=== PATIENT | female | born 1980 | race Two or more races ===

== ENCOUNTER → 2020-01-21 10:08 | Outpatient (BNVA) | payer MEDICAID, SELFPAY | PROVIDERS: PCP Student in an Organized Health Care Education/Training Program; Referring Provider Student in an Organized Health Care Education/Training Program; Visit Provider Nurse Practitioner Family | DX: M54.16 Radiculopathy, lumbar region (principal); M53.3 Sacrococcygeal disorders, not elsewhere classified | CPT/HCPCS: 99202 ==

== ENCOUNTER 2020-01-27 09:20 | Outpatient (REF) | payer MEDICAID, SELFPAY ==
--- NOTE | 2020-01-27 09:23 | MR_ITS ---
EXAMINATION: MR LUMBAR SPINE WITHOUT CONTRAST CLINICAL INFORMATION: Lumbar radiculopathy on left side. COMPARISON: X-ray dated 12/03/2012 TECHNIQUE: MRI of the lumbar spine was obtained using routine sequences without contrast. FINDINGS: VERTEBRAL BODIES AND PARASPINAL STRUCTURES: Mild chronic fatty marrow degenerative endplate changes noted at various levels. There are no compression fractures or subluxations. The remainder of the marrow signal is fairly homogeneous. The paraspinal soft tissues are normal. There are mild degenerative changes of the sacroiliac joints. There is fluid within the endometrial canal of the uterus, partially visualized which may be physiologic in nature. CONUS MEDULLARIS AND CAUDA EQUINA: Normal, terminating at the level of L1. No lower cord signal abnormality is seen. The cauda equina nerve roots are normal. SPINAL LEVELS: L1-L2: Mild diffuse disc bulge and shallow left paracentral disc protrusion slightly impressing upon the ventral thecal sac. No central canal stenosis or foraminal narrowing. L2-L3: Mild disc bulge present without central canal stenosis or foraminal narrowing. L3-L4: Generalized disc bulge and shallow, broad-based central disc protrusion with an underlying annular fissure mildly impressing upon the ventral thecal sac and right L4 nerve root. Mild facet arthropathy. No central canal stenosis. Bulging disc mildly encroaches upon the right neural foramen. L4-L5: Disc degeneration and broad-based central disc extrusion moderately distorting the thecal sac and resulting in mass effect upon both L5 nerve roots, left greater than right side. Hypertrophic facet arthropathy and mild to moderate central canal stenosis. Patent foramina. L5-S1: Broad-based central disc protrusion distorts the ventral thecal sac and impinges upon both S1 nerve roots. There is a more severe degree of compression and posterior displacement of the right S1 nerve root from the large disc protrusion in the subarticular zone. Mild facet arthropathy. Patent foramina. MR/MR lumbar spine wo con IMPRESSION: Broad-based central disc extrusion at L4-L5 moderately distorting the thecal sac and compressing both L5 nerve roots. Broad-based central disc protrusion at L5-S1 impinging upon the right greater than left S1 nerve roots and distorting the ventral thecal sac. Shallow broad-based and underlying disc bulge at L3-L4 with mild impression upon the right L4 nerve root.
== END 2020-01-27 09:21 | disposition home or self-care (01) ==
LOC: HO.MRI 09:20
PROVIDERS: Visit Provider Anesthesiology
DX: M54.16 Radiculopathy, lumbar region (principal)
CPT/HCPCS: 72148

== ENCOUNTER → 2020-02-03 08:55 | Outpatient (BNVA) | payer MEDICAID, SELFPAY | PROVIDERS: Visit Provider Nurse Practitioner Family | DX: M48.061 Spinal stenosis, lumbar region without neurogenic claudication (principal); E66.01 Morbid (severe) obesity due to excess calories | CPT/HCPCS: 99212 ==

== ENCOUNTER → 2020-02-25 16:06 | Outpatient (BNVA) | payer MEDICAID, SELFPAY | PROVIDERS: PCP Student in an Organized Health Care Education/Training Program; Visit Provider Nurse Practitioner Family ==

== ENCOUNTER 2020-03-09 05:22 | Outpatient (REF) | payer MEDICAID, SELFPAY ==
--- NOTE | 2020-03-09 07:28 | FL_ITS ---
EXAMINATION: XR FLUOROSCOPY WITH IMAGES CLINICAL INFORMATION: Radiculopathy. COMPARISON: None. TECHNIQUE: Fluoroscopy performed by Arleth Roldan NP. Fluoroscopy time: 1.1 minutes DAP: 8.93 Gycm2 Images: 2 FINDINGS: There are 6 lumbar vertebrae noted. There are needles positioned adjacent to inferior L3 and L4 pedicles with contrast opacifying adjacent soft tissues and epidural contrast for an epidural steroid injection. FL/FL guidance in treatment room IMPRESSION: Fluoroscopy was provided to referring physician for transforaminal epidural steroid injection at L3-L4 and L4-L5 disc levels
== END 2020-03-09 05:23 | disposition home or self-care (01) ==
LOC: HO.RADIR 05:22
PROVIDERS: Visit Provider Anesthesiology
DX: M54.16 Radiculopathy, lumbar region (principal); M48.061 Spinal stenosis, lumbar region without neurogenic claudication; M53.3 Sacrococcygeal disorders, not elsewhere classified; E66.01 Morbid (severe) obesity due to excess calories
CPT/HCPCS: 64483; 64484; J3300; Q9967

== ENCOUNTER → 2020-04-06 10:37 | Outpatient (BNVA) | payer MEDICAID, SELFPAY | PROVIDERS: PCP Student in an Organized Health Care Education/Training Program; Visit Provider Surgery Vascular Surgery | DX: I73.00 Raynaud's syndrome without gangrene (principal); G56.02 Carpal tunnel syndrome, left upper limb | CPT/HCPCS: 99202 ==

== ENCOUNTER → 2020-04-12 09:22 | Outpatient (BNVA) | payer MEDICAID, SELFPAY | PROVIDERS: Visit Provider Anesthesiology | DX: E66.01 Morbid (severe) obesity due to excess calories (principal); M48.061 Spinal stenosis, lumbar region without neurogenic claudication; M53.3 Sacrococcygeal disorders, not elsewhere classified; M54.16 Radiculopathy, lumbar region | CPT/HCPCS: 99212 ==

== ENCOUNTER 2020-06-01 07:16 | Outpatient (REF) | payer MEDICAID, SELFPAY ==
--- NOTE | ~2020-06-01 | FL_ITS ---
EXAMINATION: XR FLUOROSCOPY WITH IMAGES CLINICAL INFORMATION: Spinal stenosis. COMPARISON: None. TECHNIQUE: Fluoroscopy performed by Arleth Roldan. Fluoroscopy time: 0.4 minutes DAP: 3.66 Gycm2 Images: 2 FINDINGS: There is left transforaminal L3-L4 epidural injection with contrast opacifying posterior epidural space and the neural foramina. Mild spondylosis seen in lumbar spine. FL/FL guidance in treatment room IMPRESSION: Fluoroscopy provided to Arleth Roldan for L4 epidural injection.
== END 2020-06-01 07:17 | disposition home or self-care (01) ==
LOC: HO.RADIR 07:16
PROVIDERS: Visit Provider Anesthesiology
DX: M48.061 Spinal stenosis, lumbar region without neurogenic claudication (principal); M53.3 Sacrococcygeal disorders, not elsewhere classified; M54.16 Radiculopathy, lumbar region; E66.01 Morbid (severe) obesity due to excess calories
CPT/HCPCS: 64483; 64484; J1100; J3300; Q9967

== ENCOUNTER → 2020-07-07 11:21 | Outpatient (BNVA) | payer MEDICAID, SELFPAY | PROVIDERS: Visit Provider Nurse Practitioner Family | DX: M54.16 Radiculopathy, lumbar region (principal); E66.01 Morbid (severe) obesity due to excess calories; M48.061 Spinal stenosis, lumbar region without neurogenic claudication; M53.3 Sacrococcygeal disorders, not elsewhere classified ==

== ENCOUNTER 2020-07-07 18:45 | Outpatient (REF) | payer MEDICAID, SELFPAY ==
--- NOTE | ~2020-07-07 | MR_ITS ---
MR LUMBAR SPINE WITHOUT CONTRAST CLINICAL INFORMATION: Severe low back pain and bilateral leg pain and incontinence. COMPARISON: Lumbar spine MRI 01/27/2020. TECHNIQUE: MRI of the lumbar spine was obtained using routine sequences without contrast. FINDINGS: There are 5 nonrib-bearing lumbar-type vertebral bodies. Stable grade 1 anterolisthesis of L5 on S1. Lumbar alignment is otherwise normal. The vertebral body heights are maintained. Disc desiccation at all lumbar levels. There is no bone marrow edema. There are no acute fractures. Conus terminates at the L1 level. Nonspecific enlarged retroperitoneal lymph nodes are stable. L1-L2: Small annular disc bulge eccentric to the left side mildly narrows the central canal and is unchanged. No foraminal stenosis. L2-L3: New small superiorly migrating left paracentral disc extrusion mildly narrows the central canal. Mild bilateral facet arthropathy. L3-L4: Diffuse annular disc bulge and mild bilateral facet arthropathy. Mild narrowing of the central canal. No foraminal stenosis. Findings unchanged. L4-L5: An inferiorly migrating central disc extrusion results in worsening moderate to severe central canal stenosis and compression of the traversing L5 nerve roots bilaterally. Bilateral facet arthropathy. Mild foraminal encroachment bilaterally. L5-S1: A superiorly migrating broad-based right paracentral disc protrusion continues to result in moderate to severe central canal stenosis and compresses the traversing right greater than left S1 nerve roots within the subarticular zones. Mild bilateral foraminal encroachment. MR/MR lumbar spine wo con IMPRESSION: - At L5-S1, a superiorly migrating broad-based right paracentral disc protrusion continues to result in moderate to severe central canal stenosis and compresses the traversing right greater than left S1 nerve roots within the subarticular zones. - At L4-L5, and inferiorly migrating central disc extrusion results in worsening moderate to severe central canal stenosis and compression of the traversing L5 nerve roots bilaterally. - At L2-L3, a new small superiorly migrating left paracentral disc extrusion mildly narrows the central canal. - Nonspecific enlarged retroperitoneal lymph nodes are stable.
== END 2020-07-07 18:46 | disposition home or self-care (01) ==
LOC: HO.MRI 18:45
PROVIDERS: Visit Provider Physician Assistant
DX: M54.5 Low back pain (principal); M79.18 Myalgia, other site; M79.604 Pain in right leg; R32 Unspecified urinary incontinence; M54.16 Radiculopathy, lumbar region; M48.061 Spinal stenosis, lumbar region without neurogenic claudication; Z79.899 Other long term (current) drug therapy
CPT/HCPCS: 72148

== ENCOUNTER → 2020-12-07 09:16 | Outpatient (BNVA) | payer MEDICAID, SELFPAY | PROVIDERS: PCP Student in an Organized Health Care Education/Training Program; Visit Provider Nurse Practitioner Family | DX: M54.16 Radiculopathy, lumbar region (principal); M53.3 Sacrococcygeal disorders, not elsewhere classified | CPT/HCPCS: 99212 ==

== ENCOUNTER 2020-12-21 15:47 | Outpatient (RCR) | payer MEDICAID, SELFPAY | END 2021-04-29 14:13 | disposition home or self-care (01) | LOC: HO.PT 15:47 | PROVIDERS: PCP Student in an Organized Health Care Education/Training Program; Visit Provider Nurse Practitioner Family | DX: M53.3 Sacrococcygeal disorders, not elsewhere classified (principal) ==

== ENCOUNTER → 2021-01-04 11:25 | Outpatient (BNVA) | payer MEDICAID, SELFPAY | PROVIDERS: Visit Provider Nurse Practitioner Family | DX: M54.16 Radiculopathy, lumbar region (principal); M53.3 Sacrococcygeal disorders, not elsewhere classified | CPT/HCPCS: 99212 ==

== ENCOUNTER → 2021-01-19 11:13 | Outpatient (BNVA) | payer MEDICAID, SELFPAY | PROVIDERS: Visit Provider Nurse Practitioner Family ==

== ENCOUNTER → 2021-02-08 10:41 | Outpatient (BNVA) | payer MEDICAID, SELFPAY | PROVIDERS: PCP Student in an Organized Health Care Education/Training Program; Visit Provider Nurse Practitioner Family | DX: M54.16 Radiculopathy, lumbar region (principal); M53.3 Sacrococcygeal disorders, not elsewhere classified | CPT/HCPCS: 99212 ==

== ENCOUNTER → 2021-03-10 09:46 | Day surgery (SDC) | payer MEDICAID, SELFPAY ==
--- NOTE | 2021-03-09 10:25 | HO.ANESPROP2 ---
Documented by User: Dana Simms NP 03/09/21 10:29 HPI - Anesthesia Eval Consult details Narrative: 41yo F for Left?Diagnostic Sacroiliac Joint Innervation Injections PMFSH Active Problems Active Problems: All Active Problems (Updated 04/12/20 @ 10:12 by Gabe You MD) Carpal tunnel syndrome on left (Acute) Raynaud's disease without gangrene (Acute) Morbid obesity (Acute) Spinal stenosis of lumbar region (Acute) Sacroiliac joint pain (Acute) Lumbar radiculopathy (Acute) Past Medical History Medical History (Updated 03/10/21 @ 10:01 by Kimber Gudino RN) delivery delivered HTN (hypertension) Raynaud's disease without gangrene Surgical History Surgical History Carpal tunnel syndrome (~2018) Lipoma of arm Social History Social History Patient Tobacco Use Status: Current everyday Tobacco user Tobacco use type: Cigarette Cigarettes Per Day: 8 Use of substances other than those prescribed or required for medical reasons: Yes Substance Use Frequency: Daily Are you DNR?: No Advance Directives: No Advance Directives Information Provided: Yes Meds Allergies Allergy/AdvReac Type Severity Reaction Status Date / Time oxycodone [From PERCOCET] Allergy Unknown HIVES Verified 03/10/21 10:01 Home Medications Medication Instructions Recorded Confirmed Last Taken Type lisinopril 40 mg tablet 40 mg PO DAILY 01/21/20 01/04/21 Unknown History amlodipine 5 mg tablet 5 mg PO DAILY 04/06/20 01/04/21 Unknown History hydrochlorothiazide 25 mg tablet 25 mg PO DAILY 12/07/20 01/04/21 Unknown History Exam Exam Date and Time: March 09, 2021 1025 Assessment and Plan Assessment Anesthesia Assessment: Chart Reviewed Documented by User: Ross Navarrete 03/10/21 12:24 HPI - Anesthesia Eval Consult details Narrative: 41yo F for Left?Diagnostic Sacroiliac Joint Innervation Injections patient severly hypertensive with headache. Patient given IV labetelol and oral amlodipine and HCTZ ( home meds which she forgot to take ) . headache improved risks and benefits discussed . risks outweigh the benefits . case will be cancelled after discussion with surgeon . 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 counselled the patient that if symptoms reappear , immediately go to the ED patient understands and agrees with the plan . [facility] Past Medical History Medical History (Updated 03/10/21 @ 10:01 by Kimber Gudino, THOMAS) delivery delivered HTN (hypertension) Raynaud's disease without gangrene Functional capacity: independent ambulation Family History Family history of problems with anesthesia: No Surgical History Surgical History Carpal tunnel syndrome (~2018) Lipoma of arm History of Problems with Anesthesia: No Social History Social History Patient Tobacco Use Status: Current everyday Tobacco user Tobacco use type: Cigarette Cigarettes Per Day: 8 Use of substances other than those prescribed or required for medical reasons: Yes Substance Use Frequency: Daily Are you DNR?: No Advance Directives: No Advance Directives Information Provided: Yes Meds Allergies Allergy/AdvReac Type Severity Reaction Status Date / Time oxycodone [From PERCOCET] Allergy Unknown HIVES Verified 03/10/21 10:01 Home Medications Medication Instructions Recorded Confirmed Last Taken Type lisinopril 40 mg tablet 40 mg PO DAILY 01/21/20 01/04/21 Unknown History amlodipine 5 mg tablet 5 mg PO DAILY 04/06/20 01/04/21 Unknown History hydrochlorothiazide 25 mg tablet 25 mg PO DAILY 12/07/20 01/04/21 Unknown History Exam Airway Mallampati Class: I TM Dist: >3cm Loose/Missing/Broken Teeth: Yes (Chipped ) Assessment and Plan Final Anesthetic Review Family History of Problems with Anesthesia: No History of Problems with Anesthesia: No NPO: Yes ASA Class: III Final Preanesthetic Review: Anes Risks/Benef Reviewed Patient Risk: High Anesthetic Plan Anesthetic Plan: MAC: Disposition: Standard PACU
[2021-03-10 10:02] VITALS: BMI 39.4
[2021-03-10 10:13] LABS: UPreg QC Valid YES
[2021-03-10 10:15] LABS: Urine Pregnancy NEGATIVE (NEGATIVE)
[2021-03-10 10:17] VITALS: BP 181/102; PULSE 76; RESP 16; TEMP 36.7; O2SAT 99
[2021-03-10] MEDS: Lactated Ringers 1,000 ML 100 ML IVCONT (10:27)
[2021-03-10] MEDS: hydroCHLOROthiazide 25 MG TABLET PO (11:09)
[2021-03-10] MEDS: amLODIPine Besylate 5 MG TABLET PO (11:09)
--- NOTE | 2021-03-10 11:35 | MHC.SHP ---
Pre-Procedural Eval Section A Date of Service: 03/10/21 Changes since office visit: Yes Patient answered all questions The History & Physical has been completed within 30 days and I have reviewed it.: No Section B Chief Complaint: Sacroiliac Joint Pain Details of Present Illness: As above Relevant Social History: None Present Medications: see Short Stay Collaborative assessment Medical History: No relevant PMH History of Previous Operations: No relevant previous surgery Allergies: Allergies Allergy/AdvReac Type Severity Reaction Status Date / Time oxycodone [From PERCOCET] Allergy Unknown HIVES Verified 03/10/21 10:01 Review of Systems Sugical H&P ROS: Negative: Constitution, Cardiovascular, Respiratory, Neurological, Psychiatric, Hem-Onc, Allergic/Immunologic, Gastrointestinal, Genitourinary, Musculoskeletal, Integumentary, Endocrine and Eyes/Ears/Nose/Throat Exam Surgical H&P Exam: Normal: HEENT, Normal: Heart, Normal: Lungs, Normal: Extremities, Normal: Abdomen, Normal: Skin and Normal: Neurological Plan Diagnosis/Plan: Unchanged I have reviewed the history and physical and performed a pertinent physical examination on my patient. No changes have occurred unless specified.
== END ==
PROVIDERS: Nurse Practitioner; PCP Student in an Organized Health Care Education/Training Program; Visit Provider Anesthesiology
DX: M53.3 Sacrococcygeal disorders, not elsewhere classified (principal); M54.16 Radiculopathy, lumbar region; Z53.8 Procedure and treatment not carried out for other reasons; I10 Essential (primary) hypertension; Z79.899 Other long term (current) drug therapy; Z88.0 Allergy status to penicillin
CPT/HCPCS: 81025; Q9967

== ENCOUNTER 2021-03-31 09:45 | Day surgery (SDC) | payer MEDICAID, SELFPAY ==
[2021-03-25 14:02] VITALS: BMI 39.4
--- NOTE | 2021-03-30 09:03 | HO.ANESPROP2 ---
Documented by User: Dana Simms NP 03/30/21 09:09 HPI - Anesthesia Eval Consult details Narrative: 41yo F for Left?Diagnostic Sacroiliac Joint Innervation Injections Cx'd DOS 03/09/21 d/t uncontrolled htn, headache (given IV labetelol and oral amlodipine and HCTZ. Seen by PCP (increased cardiac meds) Cleared by cardiology [facility] Active Problems Active Problems: All Active Problems (Updated 03/25/21 @ 14:22 by Edith Gtz, THOMAS) Lumbar radiculopathy (Acute) Sacroiliac joint pain (Acute) Spinal stenosis of lumbar region (Acute) Morbid obesity (Acute) Carpal tunnel syndrome on left (Acute) Raynaud's disease without gangrene (Acute) Past Medical History Medical History (Updated 03/25/21 @ 14:22 by Edith Gtz RN) Anxiety delivery delivered History of COVID-19 HTN (hypertension) Hx of myocardial infarction Raynaud's disease without gangrene Snores Family History Family history of problems with anesthesia: No Surgical History Surgical History (Updated 03/31/21 @ 10:04 by Ro Rose RN) Carpal tunnel syndrome (~2018) History of back surgery Hx of section Lipoma of arm History of Problems with Anesthesia: No Social History Social History (Updated 03/31/21 @ 11:13 by Su Diamond MD) Are you a primary critical care nurse to a significant other at home: No Do you presently have visiting nurse or other home services: No Patient Tobacco Use Status: Current everyday Tobacco user Tobacco use type: Cigarette Cigarettes Per Day: 5 Years Smoked: 27 Smoked in Last 30 Days: Yes Use of substances other than those prescribed or required for medical reasons: Yes Substance Use Type: Marijuana Substance Use Frequency: Daily Last Used Substance: Hours (ago) Have you been hit, kicked, punched, or otherwise hurt by someone within the past year? If so, by whom?: No Are you DNR?: No Advance Directives: No Advance Directives Information Provided: Yes Advance Directives on File: No Recently lost weight without trying: No Patient : No FDLMP: 03/10/2021 : No Poor oral hygiene: No Meds Allergies Allergy/AdvReac Type Severity Reaction Status Date / Time oxycodone [From PERCOCET] Allergy Unknown HIVES Verified 03/25/21 13:56 Home Medications Medication Instructions Recorded Confirmed Last Taken Type lisinopril 40 mg tablet 40 mg PO DAILY 01/21/20 03/25/21 Unknown History amlodipine 5 mg tablet 10 mg PO DAILY 04/06/20 03/25/21 03/31/21 History hydrochlorothiazide 25 mg tablet 25 mg PO DAILY 12/07/20 03/25/21 Unknown History carvedilol 6.25 mg tablet 6.25 mg PO BID 03/25/21 03/25/21 03/31/21 History diphenhydramine HCl 25 mg capsule 25 mg PO BID PRN 03/25/21 03/25/21 Unknown History (Benadryl) gabapentin 400 mg tablet 400 mg PO TID 03/25/21 03/25/21 03/31/21 History oxycodone 5 mg tablet 5 mg PO Q12H PRN 03/25/21 03/25/21 Unknown History Exam Exam Date and Time: March 30, 2021 0903 Height,Weight and Vital Signs: Height 5 ft 4 in Weight 104.326 kg Assessment and Plan Assessment Anesthesia Assessment: Chart Reviewed Final Anesthetic Review Family History of Problems with Anesthesia: No History of Problems with Anesthesia: No Documented by User: Su Diamond MD 03/31/21 13:15 [facility] Active Problems Active Problems: All Active Problems (Updated 03/25/21 @ 14:22 by Edith Gtz RN) Lumbar radiculopathy (Acute) Sacroiliac joint pain (Acute) Spinal stenosis of lumbar region (Acute) Morbid obesity (Acute) Carpal tunnel syndrome on left (Acute) Raynaud's disease without gangrene (Acute) Covid Positive 03/13/21. Got IV monoclonal antibodies on 03/15/21 Past Medical History Medical History (Updated 03/25/21 @ 14:22 by Edith Gtz, THOMAS) Anxiety delivery delivered History of COVID-19 HTN (hypertension) Hx of myocardial infarction Raynaud's disease without gangrene Snores Surgical History Surgical History (Updated 03/31/21 @ 10:04 by Ro Rose RN) Carpal tunnel syndrome (~2018) History of back surgery Hx of section Lipoma of arm Social History Social History (Updated 03/31/21 @ 11:13 by Su Diamond MD) Are you a primary critical care nurse to a significant other at home: No Do you presently have visiting nurse or other home services: No Patient Tobacco Use Status: Current everyday Tobacco user Tobacco use type: Cigarette Cigarettes Per Day: 5 Years Smoked: 27 Smoked in Last 30 Days: Yes Use of substances other than those prescribed or required for medical reasons: Yes Substance Use Type: Marijuana Substance Use Frequency: Daily Last Used Substance: Hours (ago) Have you been hit, kicked, punched, or otherwise hurt by someone within the past year? If so, by whom?: No Are you DNR?: No Advance Directives: No Advance Directives Information Provided: Yes Advance Directives on File: No Recently lost weight without trying: No Patient : No FDLMP: 03/10/2021 : No Poor oral hygiene: No Meds Allergies Allergy/AdvReac Type Severity Reaction Status Date / Time oxycodone [From PERCOCET] Allergy Unknown HIVES Verified 03/25/21 13:56 Home Medications Medication Instructions Recorded Confirmed Last Taken Type lisinopril 40 mg tablet 40 mg PO DAILY 01/21/20 03/25/21 Unknown History amlodipine 5 mg tablet 10 mg PO DAILY 04/06/20 03/25/21 03/31/21 History hydrochlorothiazide 25 mg tablet 25 mg PO DAILY 12/07/20 03/25/21 Unknown History carvedilol 6.25 mg tablet 6.25 mg PO BID 03/25/21 03/25/21 03/31/21 History diphenhydramine HCl 25 mg capsule 25 mg PO BID PRN 03/25/21 03/25/21 Unknown History (Benadryl) gabapentin 400 mg tablet 400 mg PO TID 03/25/21 03/25/21 03/31/21 History oxycodone 5 mg tablet 5 mg PO Q12H PRN 03/25/21 03/25/21 Unknown History Exam Height,Weight and Vital Signs: Height 5 ft 4 in Weight 104.326 kg Vital Signs Temp Pulse Resp BP Pulse Ox 03/31/21 10:19 98.1 F 71 16 125/78 99 Pertinent Lab Results Pertinent Lab Results: Lab Results 03/31/21 Range/Units 10:04 Urine Test NEGATIVE (NEGATIVE) Airway Mallampati Class: II TM Dist: >3cm Neck ROM: Full Heart: RRR Lungs: CTAB Assessment and Plan Assessment Anesthesia Assessment: Anesthesia Plan Discussed Final Anesthetic Review NPO: Yes ASA Class: III Final Preanesthetic Review: No Changes in Pt Med Stat, Meds/Allgs Chart Reviewed, Consent Obtained/Reviewed and Anes Risks/Benef Reviewed Patient Risk: Intermediate Procedure Risk: Low Assessment/Block/Sedation in SS: Assess/Block/Sedation-SS Anesthetic Plan Anesthetic Plan: GA and MAC: Disposition: Standard PACU
--- NOTE | ~2021-03-31 | FL_ITS ---
EXAMINATION: XR FLUOROSCOPY WITH IMAGES CLINICAL INFORMATION: Lumbosacral pain. COMPARISON: MR lumbar spine 07/07/2020 TECHNIQUE: Fluoroscopy performed by Dr. Gabe You. Fluoroscopy time: 0.6 minutes DAP: 6.06 Gycm2 Images: 2 FINDINGS: There are spinal needles overlying the left lumbosacral junction and upper left sacral wing near the foramen. There is contrast seen in the soft tissues and likely nerve sheath. No vascular communication appreciated. FL/FL guidance in OR IMPRESSION: Fluoroscopy for pain management procedures.
[2021-03-31 10:19] VITALS: BP 125/78; PULSE 71; RESP 16; TEMP 36.7; O2SAT 99
[2021-03-31 10:24] LABS: Urine Pregnancy NEGATIVE (NEGATIVE)
[2021-03-31 10:25] LABS: UPreg QC Valid YES
[2021-03-31] MEDS: Lactated Ringers 1,000 ML 100 ML IVCONT (10:37)
--- NOTE | 2021-03-31 11:56 | P.HPSUR_ITS ---
Pre-Procedural Eval Section A Date of Service: 03/31/21 The patient is an INPATIENT: No Changes since office visit: Yes Patient answered all questions The History & Physical has been completed within 30 days and I have reviewed it.: No Section B Chief Complaint: sacroccygeal disorders Details of Present Illness: as above Relevant Family History (Specify if Yes): No Relevant Social History: None Present Medications: None Medical History: No relevant PMH History of Previous Operations: No relevant previous surgery Allergies: Allergies Allergy/AdvReac Type Severity Reaction Status Date / Time oxycodone [From PERCOCET] Allergy Unknown HIVES Verified 03/25/21 13:56 Review of Systems Sugical H&P ROS: Negative: Cardiovascular, Respiratory, Neurological, Psychiat josé, Hem-Onc, Allergic/Immunologic, Gastrointestinal, Genitourinary, Musculoskeletal, Integumentary, Endocrine and Eyes/Ears/Nose/Throat and Yes, Specify: Constitution (obese) Exam Surgical H&P Exam: Normal: HEENT, Normal: Heart, Normal: Lungs, Normal: Extremities, Normal: Abdomen, Normal: Skin and Normal: Neurological Plan Diagnosis/Plan: Unchanged I have reviewed the history and physical and performed a pertinent physical examination on my patient. No changes have occurred unless specified.
--- NOTE | 2021-03-31 12:30 | PM.OP ---
Brief Operative Note Date of Service: 03/31/21 Pre-op diagnosis: sacroiliitis Post-op diagnosis: same Procedure: left sacroiliac joint innervation Diagnostic injection Implants: none Surgeon: Gabe You MD Anesthesia: MAC Was an Cyber Systems Operations Specialist used for this Procedure?: No Estimated blood loss (mL): 0 Disposition: PACU
--- NOTE | 2021-03-31 12:32 | P.OP_ITS ---
Operative Note Operative Note Date of Service: 03/31/21 Narrative: The patient came to the OR to have a diagnostic left SI joint innervation injection. After obtaining informed consent the patient was brought to the OR where he was positioned prone on the operating table. ASA m-rs were applied and the patient was sedated. Time out was performed delineating correct site and side of the procedure. the lower back of the patient was prepped and draped with duraprep.? C-arm was brought over the operating field and square picture of the pelvis was demonstrated on the screen . The targets for the on injection were delineated as the connection of the base of the left superior articular process of S1 with Sacral ala as well as the lowest point of the sacroiliac joint on the sacral bone side and also all the points in between in palisade fashion. The projection of the points of the interests to the skin were anesthetized with mixture of lidocaine 2% with marcain 0.5% 1:1. after that three 22g 3.5 inch needles were driven to the points of the interests in tunnel vision fashion unti l the tips of the needle would gently contact the bone. On the first target injection of the contrast was performed delineating no intravascular and no intrathecal spread of the contrast. after that the injection of bupivacaine 0.5% was performed into each needle location sequentially no more than 1 ml of the local anesthetic into one needle location. After that the needles were removed and sterile bandade was applied. After the completion of the procedure the patient was awaken and taken to PACU for recovery from anesthesia.
[2021-03-31 12:38] VITALS: BP 107/64; PULSE 88; RESP 20; TEMP 37; O2SAT 97
[2021-03-31 12:53] VITALS: BP 102/58; PULSE 68; RESP 16; O2SAT 98
== END 2021-03-31 13:48 | disposition home or self-care (01) ==
PROVIDERS: Nurse Practitioner; PCP Student in an Organized Health Care Education/Training Program; Visit Provider Anesthesiology
PROC: (CPT 64451; principal; 2021-03-31 11:30)
DX: M53.3 Sacrococcygeal disorders, not elsewhere classified (principal); M54.16 Radiculopathy, lumbar region; M54.50 Low back pain, unspecified; R06.83 Snoring; I10 Essential (primary) hypertension; I73.00 Raynaud's syndrome without gangrene; Z79.899 Other long term (current) drug therapy; Z88.8 Allergy status to other drugs, medicaments and biological substances; F17.210 Nicotine dependence, cigarettes, uncomplicated; Z86.16 Personal history of COVID-19
CPT/HCPCS: 64451; 81025; J2250; J2370; J3010; J3300; Q9967

== ENCOUNTER → 2021-04-12 09:45 | Outpatient (BNVA) | payer MEDICAID, SELFPAY | PROVIDERS: PCP Student in an Organized Health Care Education/Training Program; Visit Provider Nurse Practitioner Family | DX: M54.16 Radiculopathy, lumbar region (principal); M53.3 Sacrococcygeal disorders, not elsewhere classified; Z79.891 Long term (current) use of opiate analgesic | CPT/HCPCS: 99212 ==

== ENCOUNTER → 2021-04-27 15:45 | Outpatient (BNVA) | payer MEDICAID, SELFPAY | PROVIDERS: PCP Student in an Organized Health Care Education/Training Program; Visit Provider Nurse Practitioner Family | DX: Z51.81 Encounter for therapeutic drug level monitoring (principal); F11.20 Opioid dependence, uncomplicated; M54.16 Radiculopathy, lumbar region; M53.3 Sacrococcygeal disorders, not elsewhere classified | CPT/HCPCS: 99212 ==

== ENCOUNTER 2021-08-12 09:54 | Outpatient (REF) | payer MEDICAID, SELFPAY ==
--- NOTE | ~2021-08-12 | MM_ITS ---
EXAMINATION: MM SCREENING DIGITAL BREAST TOMOSYNTHESIS, BILATERAL CLINICAL INFORMATION: Screening. Asymptomatic. Age 41. No prior breast imaging. No known family history breast cancer.. The lifetime risk of breast cancer based on the Tyrer-Cuzick Model is 8%. COMPARISON: None (current study represents initial baseline exam). TECHNIQUE: Digital breast tomosynthesis is performed in both the craniocaudal and mediolateral oblique views along with computer-aided detection (CAD). Synthesized 2D images are generated from the tomosynthesis. FINDINGS: There are scattered areas of fibroglandular density (ACR BI-RADS breast composition Category b). There is no significant mass or architectural abnormality. No abnormal calcifications. The axilla are unremarkable. Skin contours are smooth. No skin thickening or coarsening of the Sushant's ligaments. MM/MM tomosynthesis screening BI IMPRESSION: No mammographic evidence of malignancy. ASSESSMENT: BI-RADS 1: Negative RECOMMENDATION: Routine annual mammography screening. This patient's information was entered into a reminder system with a target due date for their next mammogram.
== END 2021-08-12 09:55 | disposition home or self-care (01) ==
LOC: HO.MAMMO 09:54
PROVIDERS: Visit Provider Student in an Organized Health Care Education/Training Program
DX: Z12.31 Encounter for screening mammogram for malignant neoplasm of breast (principal)
CPT/HCPCS: 77063; 77067

== ENCOUNTER 2021-09-16 07:55 | Day surgery (SDC) | payer MEDICAID, SELFPAY ==
--- NOTE | 2021-09-15 12:23 | HO.ANESPROP2 ---
Documented by User: Dana Simms NP 09/15/21 13:26 HPI - Anesthesia Eval Consult details Narrative: 41yo F for Left Sacroiliac Joint Innerv Stimulation TRIAL s/p joint injection 03/2021 with TIVA (was cleared by cardiol and pcp prior for elevated bp and s/p PR) PMFSH Active Problems Active Problems: All Active Problems (Updated 03/25/21 @ 14:22 by Edith Gtz, THOMAS) Lumbar radiculopathy (Acute) Sacroiliac joint pain (Acute) Spinal stenosis of lumbar region (Acute) Morbid obesity (Acute) Carpal tunnel syndrome on left (Acute) Raynaud's disease without gangrene (Acute) Past Medical History Medical History (Updated 03/25/21 @ 14:22 by Edith Gtz, THOMAS) Anxiety delivery delivered History of COVID-19 HTN (hypertension) Hx of myocardial infarction Raynaud's disease without gangrene Snores Family History Family history of problems with anesthesia: No Surgical History Surgical History (Updated 03/31/21 @ 10:04 by Ro Rose RN) Carpal tunnel syndrome (~2018) History of back surgery Hx of section Lipoma of arm History of Problems with Anesthesia: No Social History Social History (Updated 03/31/21 @ 11:13 by Su Diamond MD) Are you a primary auto care center manager to a significant other at home: No Do you presently have visiting nurse or other home services: No Patient Tobacco Use Status: Current everyday Tobacco user Tobacco use type: Cigarette Cigarettes Per Day: 4 Years Smoked: 27 Use of substances other than those prescribed or required for medical reasons: No Substance Use Type: Marijuana Are you DNR?: No Advance Directives: No Advance Directives Information Provided: Yes Recently lost weight without trying: No Nutrition Risks: No Nutritional Risk Meds Allergies Allergy/AdvReac Type Severity Reaction Status Date / Time No Known Allergies Allergy Verified 04/27/21 16:05 Home Medications Medication Instructions Recorded Confirmed Last Taken Type lisinopril 40 mg tablet 40 mg PO DAILY 01/21/20 04/27/21 Unknown History amlodipine 5 mg tablet 10 mg PO DAILY 04/06/20 04/27/21 09/16/21 History hydrochlorothiazide 25 mg tablet 25 mg PO DAILY 12/07/20 04/27/21 09/16/21 History sertraline 25 mg tablet (Zoloft) 25 mg PO DAILY 04/27/21 04/27/21 Unknown History carvedilol 25 mg tablet 25 mg PO DAILY 09/16/21 09/16/21 09/16/21 History Exam Exam Date and Time: September 15, 2021 1223 Assessment and Plan Assessment Anesthesia Assessment: Chart Reviewed Final Anesthetic Review Family History of Problems with Anesthesia: No History of Problems with Anesthesia: No Documented by User: Ross Navarrete MD 09/16/21 10:44 HPI - Anesthesia Eval Consult details Narrative: 41yo F for Left Sacroiliac Joint Innerv Stimulation TRIAL s/p joint injection 03/2021 with TIVA (was cleared by cardiol and pcp prior for elevated bp and s/p PR) [facility] Past Medical History Medical History (Updated 03/25/21 @ 14:22 by Edith Gtz, RN) Anxiety delivery delivered History of COVID-19 HTN (hypertension) Hx of myocardial infarction Raynaud's disease without gangrene Snores Surgical History Surgical History (Updated 03/31/21 @ 10:04 by Ro Rose RN) Carpal tunnel syndrome (~2018) History of back surgery Hx of section Lipoma of arm Social History Social History (Updated 03/31/21 @ 11:13 by Su Diamond MD) Are you a primary auto care center manager to a significant other at home: No Do you presently have visiting nurse or other home services: No Patient Tobacco Use Status: Current everyday Tobacco user Tobacco use type: Cigarette Cigarettes Per Day: 4 Years Smoked: 27 Use of substances other than those prescribed or required for medical reasons: No Substance Use Type: Marijuana Are you DNR?: No Advance Directives: No Advance Directives Information Provided: Yes Recently lost weight without trying: No Nutrition Risks: No Nutritional Risk Meds Allergies Allergy/AdvReac Type Severity Reaction Status Date / Time No Known Allergies Allergy Verified 04/27/21 16:05 Home Medications Medication Instructions Recorded Confirmed Last Taken Type lisinopril 40 mg tablet 40 mg PO DAILY 01/21/20 04/27/21 Unknown History amlodipine 5 mg tablet 10 mg PO DAILY 04/06/20 04/27/21 09/16/21 History hydrochlorothiazide 25 mg tablet 25 mg PO DAILY 12/07/20 04/27/21 09/16/21 History sertraline 25 mg tablet (Zoloft) 25 mg PO DAILY 04/27/21 04/27/21 Unknown History carvedilol 25 mg tablet 25 mg PO DAILY 09/16/21 09/16/21 09/16/21 History Exam Airway Mallampati Class: III TM Dist: >3cm Neck ROM: Full Loose/Missing/Broken Teeth: Yes (Right upper chipped , poor dentition ) Heart: S1,S2 Lungs: b/l breath sounds Assessment and Plan Assessment Anesthesia Assessment: Anesthesia Plan Discussed Final Anesthetic Review NPO: Yes ASA Class: III Final Preanesthetic Review: Meds/Allgs Chart Reviewed, Consent Obtained/Reviewed and Anes Risks/Benef Reviewed Patient Risk: Intermediate Procedure Risk: Intermediate Anesthetic Plan Anesthetic Plan: MAC: Disposition: Standard PACU
--- NOTE | ~2021-09-16 | FL_ITS ---
EXAMINATION: XR FLUOROSCOPY WITH IMAGES CLINICAL INFORMATION: Right SI joint innervation stimulator trial. COMPARISON: None. TECHNIQUE: Fluoroscopy performed by Dr. Gabe You. Fluoroscopy time: 0.3 minutes DAP: 5.02 mGycm2 Images: 1 FINDINGS: There is a solitary stimulator trial electrode positioned adjacent to the right SI joint. The right SI joint space is visualized and is grossly unremarkable. The adjacent visualized sacrum and the iliac bone is normal. FL/FL guidance in OR IMPRESSION: Fluoroscopy was provided to referring physician for right SI joint stimulator trial.
[2021-09-16 08:16] VITALS: BMI 40.3
[2021-09-16 08:25] LABS: Glucose, Whole Blood 127 mg/dL (60-115)
[2021-09-16 08:33] VITALS: BP 111/72; PULSE 74; RESP 16; TEMP 36.3; O2SAT 99
[2021-09-16 08:43] LABS: UPreg QC Valid YES; Urine Pregnancy NEGATIVE (NEGATIVE)
--- NOTE | 2021-09-16 08:45 | MHC.SHP ---
Pre-Procedural Eval Section A Date of Service: 09/16/21 The patient is an INPATIENT: No Changes since office visit: Yes Patient answered all questions The History & Physical has been completed within 30 days and I have reviewed it.: No Section B Chief Complaint: Sacrococcygeal disorders, Details of Present Illness: sacroiliac joint pain left, sacroiliitis Relevant Family History (Specify if Yes): No Present Medications: see Short Stay Collaborative assessment Medical History: No relevant PMH History of Previous Operations: No relevant previous surgery Allergies: Allergies Allergy/AdvReac Type Severity Reaction Status Date / Time No Known Allergies Allergy Verified 04/27/21 16:05 Review of Systems Sugical H&P ROS: Negative: Cardiovascular, Respiratory, Neurological, Psychiatric, Hem-Onc, Allergic/Immunologic, Gastrointestinal, Genitourinary, Musculoskeletal, Integumentary, Endocrine and Eyes/Ears/Nose/Throat and Yes, Specify: Constitution (morbid obesity) Exam Surgical H&P Exam: Normal: HEENT, Normal: Heart, Normal: Lungs, Normal: Extremities, Normal: Skin and Normal: Neurological and Significant Findings: Abdomen (enlarged due to i/a and s/q fat) Plan Diagnosis/Plan: Unchanged I have reviewed the history and physical and performed a pertinent physical examination on my patient. No changes have occurred unless specified.
[2021-09-16] MEDS: Lactated Ringers 1,000 ML 100 ML IVCONT (08:54)
--- NOTE | 2021-09-16 09:13 | W.PM.OPN ---
Operative Note Operative Note Date of Service: 09/16/21 Narrative: ?trial of the sacroiliac joint innervation stimulation stim wave left. Informed consent was thoroughly explained to the patient before moving her to the operating room.? Risks and benefits were explained and all the questions were answered. Patient ? was taken to the operating room, she was positioned prone on the operating table with the pillow under her pelvis.? [place] [employer] monitors were applied and patient was deeply sedated. Time out was performed delineated correct name and of the patient, site, side and nature of the procedure, risks of DVT and fire, need for antibiotics. Her lower back and buttocks was prepped with ChloraPrep twice, and draped with sterile towels.? Sterilely draped C-arm was brought over the operating field and sq picture of patient's pelvis was demonstrated on the screen.? Attention was concentrated on the left SI joint. The sacral ala on the left was chosen as a target of the needle insertion. 3 cm above the sacral ala projection in the lumbar area injection of the local anesthetic was performed in the skin. Using 11 blade scalpel small catherine in the skin was performed. 16 gauge introducer stimwave malleable needle? was inserted through the catherine and advanced toward the sacral alae on the right.? After needle met the bone on sacral ala it was redirected slightly posterior and continued to advance alongside the curvature of the sacral bone.? When the tip of the needle reached the end of the projection of the sacroiliac joint inferiorly advancement stops and guitar wire was introduced into the needle.? It went through the needle without difficulties.? After that 8 electrode stimulating array lead was inserted through the needle and advanced to the desired position.? The needle was removed and care was taken not to dislodge the leads.? The driving stylet was removed from the lead and it was replaced with stimulating copper wire antenna electrode.? After that the knot was tied just below the level of the 2nd antenna ? contact.?One silk stitch was applied to the skin to anchor the lead to the skin. Mastisol was applied to the skin a and Steri-Strips was used to fix the stimulating lead to the skin.? Sterile dressing applied, stimulating pad was applied and taped to the skin using Medipore tape. Upon completion of the procedure the patient was awaken she was taken outside of the operating room to recovery room where she recovered uneventfully.
[2021-09-16 11:06] VITALS: BP 102/56; PULSE 77; RESP 16; TEMP 36.1; O2SAT 100
--- NOTE | 2021-09-16 11:11 | PM.OP ---
Brief Operative Note Date of Service: 09/16/21 Pre-op diagnosis: sacroiliitis, left SI joint pain Post-op diagnosis: same Procedure: trial of stimwave left sacroiliac joint innervation stimulation Implants: none permanent Surgeon: Gabe You MD Anesthesia: MAC Was an Access Coordinator used for this Procedure?: No Estimated blood loss (mL): 3 Pathology: none sent Condition: stable Disposition: PACU
[2021-09-16 11:25] VITALS: BP 93/65; PULSE 64; RESP 16; O2SAT 99
[2021-09-16 11:40] VITALS: BP 96/66; PULSE 65; RESP 16; O2SAT 99
[2021-09-16 11:57] VITALS: BP 121/78; PULSE 79; RESP 16; TEMP 36.3; O2SAT 99
== END 2021-09-16 12:11 | disposition home or self-care (01) ==
PROVIDERS: Nurse Practitioner; PCP Student in an Organized Health Care Education/Training Program; Visit Provider Anesthesiology
PROC: (CPT 64561; principal; 2021-09-16 09:50)
DX: M53.3 Sacrococcygeal disorders, not elsewhere classified (principal); I10 Essential (primary) hypertension; I73.00 Raynaud's syndrome without gangrene; R06.83 Snoring; I25.2 Old myocardial infarction; F41.1 Generalized anxiety disorder; F17.210 Nicotine dependence, cigarettes, uncomplicated; F12.90 Cannabis use, unspecified, uncomplicated; Z86.16 Personal history of COVID-19
CPT/HCPCS: 64561; 81025; 82947; C1897; J0690; J2250; J2795

== ENCOUNTER → 2021-09-22 09:02 | Outpatient (BNVA) | payer MEDICAID, SELFPAY | PROVIDERS: PCP Student in an Organized Health Care Education/Training Program; Visit Provider Anesthesiology | DX: M53.3 Sacrococcygeal disorders, not elsewhere classified (principal) | CPT/HCPCS: 99212 ==

== ENCOUNTER 2021-09-29 11:11 | Day surgery (SDC) | payer MEDICAID, SELFPAY ==
--- NOTE | ~2021-09-29 | FL_ITS ---
EXAMINATION: XR FLUOROSCOPY WITH IMAGES CLINICAL INFORMATION: Right SI innervation, diagnostic COMPARISON: MR lumbar spine 07/07/2020 TECHNIQUE: Fluoroscopy performed by Dr. Gabe You. Fluoroscopy time: 0.7 minutes. Cumulative Dose: 36.3 mGy. DAP: 9.91 Gy-cm2. Images: 5. FINDINGS: There are 4 needles overlying the right sacral wing, with needles in 2 separate positions among the full set of spot views. There is contrast seen in the soft tissues and likely along the right nerve sheaths. No visible vascular communication. FL/FL guidance in OR IMPRESSION: Fluoroscopy for pain management procedures.
[2021-09-29 11:29] VITALS: BMI 37.5
[2021-09-29 11:51] VITALS: BP 103/62; PULSE 102; RESP 18; TEMP 36.3; O2SAT 98
[2021-09-29 11:53] LABS: UPreg QC Valid YES; Urine Pregnancy NEGATIVE (NEGATIVE)
--- NOTE | 2021-09-29 11:55 | P.OP_ITS ---
Operative Note Operative Note Date of Service: 09/29/21 Narrative: Diagnostic sacroiliac joint innervation injection palisade type After obtaining informed consent and answering all the questions the patient came to the operating room.? She was positioned prone on operating table, [place] [employer] monitors were applied and patient was sedated.? TIME-OUT WAS OBTAINED DELINEATING CORRECT SITE AND SIDE OF THE PROCEDURE NAME OF THE PATIENT NEED FOR ANTIBIOTIC RISK OF FIRE. ?The right lower back and right buttock were prepped with chloraprep and draped with sterile utility towels. C-arm was brought over at the operating field and pictire of patient's right pelvic bones was demonstrated on the screen.? The point of interests were delineated 1st as the RIGHT S1 superior articular process at it's connection with sacral alae as well as the lowest poin of the right SI joint on the sacral side and also all the points in between those needle in the linear fashion on the sacral side of the right SI joint.. ?The skin in the projection of the points of interest were injected with small amount of local lidocaine 2%, mixed with naropin 0..5% 1:1 . after that 22 gauge 3 and a 1/2 inch needles were driven in tunnel vision fashion to the point of interests.? When needles gently contacted the bone trace amount of contrast was injected into each needle demonstrating no intravascular and no intrathecal uptake of the contrast.? After that? small amount of ropivacain 0.5% no more than 1 cc was injected into each site of the needle position.? Upon completion of the injections needles were removed sterile dressings were applied.? Patient tolerated procedure well she was awaken and taken outside of the operating room to recovery room.?
--- NOTE | 2021-09-29 12:00 | P.HPSUR_ITS ---
Pre-Procedural Eval Section A Date of Service: 09/29/21 The patient is an INPATIENT: No Changes since office visit: Yes Patient answered all questions The History & Physical has been completed within 30 days and I have reviewed it.: No Section B Chief Complaint: sacroilitis Details of Present Illness: As above Relevant Family History (Specify if Yes): No Relevant Social History: None Present Medications: see Short Stay Collaborative assessment Medical History: No relevant PMH History of Previous Operations: No relevant previous surgery Allergies: Allergies Allergy/AdvReac Type Severity Reaction Status Date / Time No Known Allergies Allergy Verified 09/29/21 11:52 Review of Systems Sugical H&P ROS: Negative: Constitution, Cardiovascular, Respiratory, Alison rological, Psychiatric, Hem-Onc, Allergic/Immunologic, Gastrointestinal, Genitourinary, Musculoskeletal, Integumentary, Endocrine and Eyes/Ears/Nose/Throat Exam Surgical H&P Exam: Normal: HEENT, Normal: Heart, Normal: Lungs, Normal: Extremities, Normal: Abdomen, Normal: Skin and Normal: Neurological Plan Diagnosis/Plan: Unchanged I have reviewed the history and physical and performed a pertinent physical examination on my patient. No changes have occurred unless specified.
--- NOTE | 2021-09-29 12:03 | P.CONAN_ITS ---
[facility] Active Problems Active Problems: All Active Problems (Updated 03/25/21 @ 14:22 by Edith Gtz RN) Lumbar radiculopathy (Acute) Sacroiliac joint pain (Acute) Spinal stenosis of lumbar region (Acute) Morbid obesity (Acute) Carpal tunnel syndrome on left (Acute) Raynaud's disease without gangrene (Acute) Past Medical History Medical History Anxiety delivery delivered History of COVID-19 HTN (hypertension) Hx of myocardial infarction Raynaud's disease without gangrene Snores Family History Family history of problems with anesthesia: No Surgical History Surgical History Carpal tunnel syndrome (~2018) History of back surgery Hx of section Lipoma of arm History of Problems with Anesthesia: No Social History Social History Are you a primary companion caregiver to a significant other at home: No Do you presently have visiting nurse or other home services: No Patient Tobacco Use Status: Current everyday Tobacco user Tobacco use type: Cigarette Cigarettes Per Day: 4 Years Smoked: 27 Smoked in Last 30 Days: Yes Patient Interested in Nicotine Replacement: No Substance Use Type: Marijuana Substance Use Frequency: Daily Are you DNR?: No Advance Directives: No Advance Directives Information Provided: Yes Nutrition Risks: No Nutritional Risk FDLMP: 09/05/21 Meds Allergies Allergy/AdvReac Type Severity Reaction Status Date / Time No Known Allergies Allergy Verified 09/29/21 11:52 Home Medications Medication Instructions Recorded Confirmed Last Taken Type lisinopril 40 mg tablet 40 mg PO DAILY 01/21/20 04/27/21 Unknown History amlodipine 5 mg tablet 10 mg PO DAILY 04/06/20 04/27/21 09/29/21 History hydrochlorothiazide 25 mg tablet 25 mg PO DAILY 12/07/20 04/27/21 09/29/21 History sertraline 25 mg tablet (Zoloft) 25 mg PO DAILY 04/27/21 04/27/21 09/29/21 History carvedilol 25 mg tablet 25 mg PO DAILY 09/16/21 09/16/21 09/29/21 History Exam Exam Date and Time: September 29, 2021 1203 Height,Weight and Vital Signs: Height 5 ft 4 in Weight 99.337 kg Last Vital Signs Temp 97.4 F 09/29/21 11:51 Pulse 102 H 09/29/21 11:51 Resp 18 09/29/21 11:51 BP 103/62 09/29/21 11:51 Pulse Ox 98 09/29/21 11:51 O2 Del Method 09/29/21 11:51 Pertinent Lab Results Pertinent Lab Results: Laboratory Tests 09/29/21 11:10 Urine Test NEGATIVE Airway Mallampati Class: II TM Dist: >3cm Neck ROM: Full Loose/Missing/Broken Teeth: No Heart: RRR Lungs: CTA Assessment and Plan Assessment Anesthesia Assessment: Anesthesia Plan Discussed and Chart Reviewed Final Anesthetic Review Family History of Problems with Anesthesia: No History of Problems with Anesthesia: No ASA Class: II Final Preanesthetic Review: Meds/Allgs Chart Reviewed, Consent Obtained/Reviewed and Anes Risks/Benef Reviewed Patient Risk: Low Procedure Risk: Low Anesthetic Plan Anesthetic Plan: MAC: Disposition: Standard PACU
[2021-09-29] MEDS: Lactated Ringers 1,000 ML 100 ML IVCONT (12:35)
[2021-09-29 13:18] VITALS: BP 97/63; PULSE 83; RESP 20; TEMP 36.4; O2SAT 100
[2021-09-29 13:33] VITALS: BP 102/61; PULSE 74; RESP 20; O2SAT 100
--- NOTE | 2021-09-29 13:39 | PM.OP ---
Brief Operative Note Date of Service: 09/29/21 Pre-op diagnosis: Sacroiliac joint pain, sacroiliitis Post-op diagnosis: same Procedure: Diagnostic right sacroiliac join innervation injection Implants: none Surgeon: Gabe You MD Anesthesia: MAC Was an Clearing Supervisor used for this Procedure?: No Estimated blood loss (mL): 2 Pathology: none sent Condition: stable Disposition: PACU
[2021-09-29 13:48] VITALS: BP 117/61; PULSE 81; RESP 20; TEMP 36.4; O2SAT 100
== END 2021-09-29 14:13 | disposition home or self-care (01) ==
PROVIDERS: Anesthesiology; PCP Student in an Organized Health Care Education/Training Program; Visit Provider Anesthesiology
PROC: (CPT 27096; principal; 2021-09-29 13:40)
DX: M46.1 Sacroiliitis, not elsewhere classified (principal); M53.3 Sacrococcygeal disorders, not elsewhere classified; I10 Essential (primary) hypertension; Z86.16 Personal history of COVID-19; I73.00 Raynaud's syndrome without gangrene; I25.2 Old myocardial infarction; F41.1 Generalized anxiety disorder; F17.210 Nicotine dependence, cigarettes, uncomplicated; F12.90 Cannabis use, unspecified, uncomplicated
CPT/HCPCS: 27096; 81025; J0690; J2250; J2795; Q9967

== ENCOUNTER → 2021-10-03 13:46 | Outpatient (BNVA) | payer MEDICAID, SELFPAY | PROVIDERS: PCP Student in an Organized Health Care Education/Training Program; Visit Provider Anesthesiology | DX: M53.3 Sacrococcygeal disorders, not elsewhere classified (principal) | CPT/HCPCS: 99212 ==

== ENCOUNTER 2021-10-20 12:03 | Day surgery (SDC) | payer MEDICAID, SELFPAY ==
--- NOTE | 2021-10-19 09:11 | P.CONAN_ITS ---
Documented by User: Dana Simms NP 10/19/21 09:14 HPI - Anesthesia Eval Consult details Narrative: 41yo F for Right Sacroiliac Joint Innerv Stim Trial s/p Sacroiliac Joint Injection 09/2021 with MAC PMFSH Active Problems Active Problems: All Active Problems (Updated 10/14/21 @ 10:27 by Jannette Wylie, THOMAS) Lumbar radiculopathy (Acute) Sacroiliac joint pain (Acute) Spinal stenosis of lumbar region (Acute) Morbid obesity (Acute) Carpal tunnel syndrome on left (Acute) Raynaud's disease without gangrene (Acute) Past Medical History Medical History Anxiety Back pain delivery delivered History of COVID-19 HTN (hypertension) Hx of myocardial infarction Raynaud's disease without gangrene Snores Family History Family history of problems with anesthesia: No Surgical History Surgical History (Updated 10/20/21 @ 13:11 by Isabelle Alatrore RN) Carpal tunnel syndrome History of back surgery History of reversal of tubal ligation Hx of section Lipoma of arm History of Problems with Anesthesia: No Social History Social History Are you a primary health and social care teacher to a significant other at home: No Do you presently have visiting nurse or other home services: No Patient Tobacco Use Status: Current everyday Tobacco user Tobacco use type: Cigarette Cigarettes Per Day: 3 Years Smoked: 27 Use of substances other than those prescribed or required for medical reasons: Yes Substance Use Type: Marijuana Substance Use Frequency: Daily Are you DNR?: No Advance Directives: No Advance Directives Information Provided: Yes Meds Allergies Allergy/AdvReac Type Severity Reaction Status Date / Time No Known Allergies Allergy Verified 10/03/21 13:47 Home Medications Medication Instructions Recorded Confirmed Last Taken Type lisinopril 40 mg tablet 40 mg PO DAILY 01/21/20 10/14/21 10/20/21 History amlodipine 5 mg tablet 10 mg PO DAILY 04/06/20 10/14/21 09/29/21 History hydrochlorothiazide 25 mg tablet 25 mg PO DAILY 12/07/20 10/14/21 10/20/21 History sertraline 25 mg tablet (Zoloft) 25 mg PO DAILY 04/27/21 10/20/21 10/20/21 History carvedilol 25 mg tablet 25 mg PO DAILY 09/16/21 10/14/21 10/20/21 History Exam Exam Date and Time: October 19, 2021 0911 Narrative Narrative: EKG 03/2021 SR @ 68, no signif Q waves, normal QTC Assessment and Plan Assessment Anesthesia Assessment: Chart Reviewed Final Anesthetic Review Family History of Problems with Anesthesia: No History of Problems with Anesthesia: No Documented by User: Manoj Garner MD 10/20/21 14:16 PMFSH Past Medical History Medical History Anxiety Back pain delivery delivered History of COVID-19 HTN (hypertension) Hx of myocardial infarction Raynaud's disease without gangrene Snores Surgical History Surgical History (Updated 10/20/21 @ 13:11 by Isabelle Alatorre RN) Carpal tunnel syndrome History of back surgery History of reversal of tubal ligation Hx of section Lipoma of arm Social History Social History Are you a primary health and social care teacher to a significant other at home: No Do you presently have visiting nurse or other home services: No Patient Tobacco Use Status: Current everyday Tobacco user Tobacco use type: Cigarette Cigarettes Per Day: 3 Years Smoked: 27 Use of substances other than those prescribed or required for medical reasons: Yes Substance Use Type: Marijuana Substance Use Frequency: Daily Are you DNR?: No Advance Directives: No Advance Directives Information Provided: Yes Meds Allergies Allergy/AdvReac Type Severity Reaction Status Date / Time No Known Allergies Allergy Verified 10/03/21 13:47 Home Medications Medication Instructions Recorded Confirmed Last Taken Type lisinopril 40 mg tablet 40 mg PO DAILY 01/21/20 10/14/21 10/20/21 History amlodipine 5 mg tablet 10 mg PO DAILY 04/06/20 10/14/2109/29/22 History hydrochlorothiazide 25 mg tablet 25 mg PO DAILY 12/07/20 10/14/21 10/20/21 History sertraline 25 mg tablet (Zoloft) 25 mg PO DAILY 04/27/21 10/20/21 10/20/21 History carvedilol 25 mg tablet 25 mg PO DAILY 09/16/21 10/14/21 10/20/21 History Assessment and Plan Final Anesthetic Review NPO: Yes ASA Class: III Final Preanesthetic Review: No Changes in Pt Med Stat, Meds/Allgs Chart Reviewed, Consent Obtained/Reviewed and Anes Risks/Benef Reviewed Patient Risk: Intermediate Procedure Risk: Low Anesthetic Plan Anesthetic Plan: MAC: Disposition: Standard PACU
--- NOTE | ~2021-10-20 | FL_ITS ---
EXAMINATION: XR FLUOROSCOPY WITH IMAGES CLINICAL INFORMATION: Nerve stimulator trial. COMPARISON: 09/16/2021 TECHNIQUE: Fluoroscopy performed by Dr. Gabe You. Fluoroscopy time: 16.4 seconds. Cumulative Dose: 9.02 mGy-cm DAP: 9.91 Gy-cm2 Images: 2. FINDINGS: AP and lateral views of the lower abdomen and upper pelvis demonstrate a solitary stimulator trial electrode overlying the dorsal aspect of the right sacral bone. FL/FL guidance in OR IMPRESSION: Fluoroscopy for pain management procedure.
[2021-10-20 13:09] VITALS: BMI 37.5
[2021-10-20 13:12] LABS: UPreg QC Valid YES; Urine Pregnancy NEGATIVE (NEGATIVE)
--- NOTE | 2021-10-20 13:21 | MHC.SHP ---
Pre-Procedural Eval Section A Date of Service: 10/20/21 The patient is an INPATIENT: No Changes since office visit: Yes Patient answered all questions The History & Physical has been completed within 30 days and I have reviewed it.: No Section B Chief Complaint: sacrococcygeal diorders Details of Present Illness: As above Relevant Family History (Specify if Yes): No Relevant Social History: None Present Medications: see Short Stay Collaborative assessment Medical History: No relevant PMH History of Previous Operations: No relevant previous surgery Allergies: Allergies Allergy/AdvReac Type Severity Reaction Status Date / Time No Known Allergies Allergy Verified 10/03/21 13:47 Review of Systems Sugical H&P ROS: Negative: Constitution, Cardiovascular, Respiratory, Neurological, Psychiatric, Hem-Onc, Allergic/Immunologic, Gastrointestinal, Genitourinary, Musculoskeletal, Integumentary, Endocrine and Eyes/Ears/Nose/Throat Exam Surgical H&P Exam: Normal: HEENT, Normal: Heart, Normal: Lungs, Normal: Extremities, Normal: Abdomen, Normal: Skin and Normal: Neurological Plan Diagnosis/Plan: Unchanged I have reviewed the history and physical and performed a pertinent physical examination on my patient. No changes have occurred unless specified.
--- NOTE | 2021-10-20 13:23 | W.PM.OPN ---
Operative Note Operative Note Date of Service: 10/20/21 Narrative: ?trial of the sacroiliac joint innervation stimulation stim wave right. Informed consent was thoroughly explained to the patient before moving her to the operating room.? Risks and benefits were explained and all the questions were answered. Patient ? was taken to the operating room, she was positioned prone on the operating table with the pillow under her pelvis.? [place] [employer] monitors were applied and patient was deeply sedated. Time out was performed delineated correct name and of the patient, site, side and nature of the procedure, risks of DVT and fire, need for antibiotics. Her lower back and buttocks was prepped with ChloraPrep twice, and draped with sterile towels.? Sterilely draped C-arm was brought over the operating field and sq picture of patient's pelvis was demonstrated on the screen.? Attention was concentrated on the left SI joint. The sacral ala on the right was chosen as a target of the needle insertion. 3 cm above the sacral ala projection in the lumbar area injection of the local anesthetic was performed in the skin. Using 11 blade scalpel small catherine in the skin was performed. 16 gauge introducer stimwave malleable needle? was inserted through the catherine and advanced toward the sacral alae on the right.? After needle met the bone on sacral ala it was redirected slightly posterior and continued to advance alongside the curvature of the sacral bone.? When the tip of the needle reached the end of the projection of the sacroiliac joint inferiorly advancement stops and guitar wire was introduced into the needle.? It went through the needle without difficulties.? After that 8 electrode stimulating array lead was inserted through the needle and advanced to the desired position.? The needle was removed and care was taken not to dislodge the lead.? The driving stylet was removed from the lead and it was replaced with stimulating copper wire antenna electrode.? After that the knot was tied just below the level of the 2nd antenna ? contact.?One silk stitch was applied to the skin to anchor the lead to the skin. Mastisol was applied to the skin a and Steri-Strips was used to fix the stimulating lead to the skin.? Sterile dressing applied, stimulating pad was applied and taped to the skin using Medipore tape. Upon completion of the procedure the patient was awaken she was taken outside of the operating room to recovery room where she recovered uneventfully.
--- NOTE | 2021-10-20 13:25 | P.BOP_ITS ---
Brief Operative Note Date of Service: 10/20/21 Pre-op diagnosis: sacroiliac joint pain right , sacroiliitis Post-op diagnosis: same Procedure: trial of stimvawe SI joint stimulation right Implants: none permanent Surgeon: Gabe You MD Anesthesia: MAC Was an Nailhead Setter used for this Procedure?: No Estimated blood loss (mL): 1 Condition: stable Disposition: PACU
[2021-10-20] MEDS: Lactated Ringers 1,000 ML 100 ML IVCONT (13:32)
[2021-10-20 15:20] VITALS: BP 99/58; PULSE 96; RESP 16; TEMP 37.2; O2SAT 100
[2021-10-20 15:35] VITALS: BP 96/59; PULSE 86; RESP 16; O2SAT 100
[2021-10-20 15:50] VITALS: BP 110/75; PULSE 76; RESP 18; O2SAT 100
[2021-10-20 16:05] VITALS: BP 108/74; PULSE 84; RESP 18; TEMP 37.2; O2SAT 100
== END 2021-10-20 16:17 ==
LOC: HO.SSS 12:03
PROVIDERS: Nurse Practitioner; PCP Student in an Organized Health Care Education/Training Program; Visit Provider Anesthesiology
PROC: (CPT 64555; principal; 2021-10-20 14:10)
DX: M53.3 Sacrococcygeal disorders, not elsewhere classified (principal); M46.1 Sacroiliitis, not elsewhere classified; I10 Essential (primary) hypertension; I73.00 Raynaud's syndrome without gangrene; F41.1 Generalized anxiety disorder; I25.2 Old myocardial infarction; Z86.16 Personal history of COVID-19; F17.210 Nicotine dependence, cigarettes, uncomplicated; F12.90 Cannabis use, unspecified, uncomplicated; Z79.899 Other long term (current) drug therapy
CPT/HCPCS: 64555; 81025; C1897; J0690; J2250; J2795; J3300

== ENCOUNTER → 2021-10-26 10:46 | Outpatient (BNVA) | payer MEDICAID, SELFPAY | PROVIDERS: PCP Student in an Organized Health Care Education/Training Program; Visit Provider Anesthesiology | DX: M53.3 Sacrococcygeal disorders, not elsewhere classified (principal) | CPT/HCPCS: 99212 ==

== ENCOUNTER 2021-11-10 09:52 | Day surgery (SDC) | payer MEDICAID, SELFPAY ==
[2021-11-03 19:12] VITALS: BMI 37.5
--- NOTE | 2021-11-09 10:01 | HO.ANESPROP2 ---
Documented by User: Dana Simms NP 11/09/21 10:04 HPI - Anesthesia Eval Consult details Narrative: 41yo F for Bilateral Sacroiliac Joint Innerv Stim Implant s/p trial 10/2021 with MAC s/p joint injection 03/2021 with TIVA (was cleared by cardiol and pcp prior for elevated bp and s/p WA) PMFSH Active Problems Active Problems: All Active Problems (Updated 11/03/21 @ 19:09 by Sapna Winchester RN) Lumbar radiculopathy (Acute) Sacroiliac joint pain (Acute) Spinal stenosis of lumbar region (Acute) Morbid obesity (Acute) Carpal tunnel syndrome on left (Acute) Raynaud's disease without gangrene (Acute) Past Medical History Medical History (Updated 11/03/21 @ 19:09 by Sapna Winchester RN) Anxiety Back pain delivery delivered Depression Diabetes GERD (gastroesophageal reflux disease) History of COVID-19 HTN (hypertension) Hx of myocardial infarction Migraine Raynaud's disease without gangrene Snores Family History Family history of problems with anesthesia: No Surgical History Surgical History Carpal tunnel syndrome History of back surgery History of reversal of tubal ligation Hx of section Lipoma of arm History of Problems with Anesthesia: No Social History Social History Are you a primary career development counselor to a significant other at home: No Do you presently have visiting nurse or other home services: No Patient Tobacco Use Status: Current everyday Tobacco user Tobacco use type: Cigarette Cigarettes Per Day: 3 Years Smoked: 27 Substance Use Type: Marijuana Meds Allergies Allergy/AdvReac Type Severity Reaction Status Date / Time No Known Allergies Allergy Verified 10/26/21 10:55 Home Medications Medication Instructions Recorded Confirmed Last Taken Type lisinopril 40 mg tablet 40 mg PO DAILY 01/21/20 11/03/21 10/20/21 History amlodipine 5 mg tablet 10 mg PO DAILY 04/06/20 11/03/21 09/29/21 History hydrochlorothiazide 25 mg tablet 25 mg PO DAILY 12/07/20 11/03/21 10/20/21 History sertraline 25 mg tablet (Zoloft) 25 mg PO DAILY 04/27/21 11/03/2110/20/22 History carvedilol 25 mg tablet 25 mg PO DAILY 09/16/21 11/03/21 10/20/21 History gabapentin 400 mg capsule 800 mg PO BID 11/03/21 11/03/21 Unknown History Exam Exam Date and Time: November 09, 2021 1001 Height,Weight and Vital Signs: Height 5 ft 4 in Weight 99.337 kg Assessment and Plan Assessment Anesthesia Assessment: Chart Reviewed Final Anesthetic Review Family History of Problems with Anesthesia: No History of Problems with Anesthesia: No Documented by User: Mandeep Victor MD 11/10/21 16:46 PMFSH Past Medical History Medical History (Updated 11/03/21 @ 19:09 by Sapna Winchester RN) Anxiety Back pain delivery delivered Depression Diabetes GERD (gastroesophageal reflux disease) History of COVID-19 HTN (hypertension) Hx of myocardial infarction Migraine Raynaud's disease without gangrene Snores Surgical History Surgical History Carpal tunnel syndrome History of back surgery History of reversal of tubal ligation Hx of section Lipoma of arm Social History Social History Are you a primary career development counselor to a significant other at home: No Do you presently have visiting nurse or other home services: No Patient Tobacco Use Status: Current everyday Tobacco user Tobacco use type: Cigarette Cigarettes Per Day: 3 Years Smoked: 27 Substance Use Type: Marijuana Meds Allergies Allergy/AdvReac Type Severity Reaction Status Date / Time No Known Allergies Allergy Verified 10/26/21 10:55 Home Medications Medication Instructions Recorded Confirmed Last Taken Type lisinopril 40 mg tablet 40 mg PO DAILY 01/21/20 11/03/21 10/20/21 History amlodipine 5 mg tablet 10 mg PO DAILY 04/06/20 11/03/21 09/29/21 History hydrochlorothiazide 25 mg tablet 25 mg PO DAILY 12/07/20 11/03/21 10/20/21 History sertraline 25 mg tablet (Zoloft) 25 mg PO DAILY 04/27/21 11/03/21 10/20/21 History carvedilol 25 mg tablet 25 mg PO DAILY 09/16/21 11/03/21 10/20/21 History gabapentin 400 mg capsule 800 mg PO BID 11/03/21 11/03/21 Unknown History Exam Airway Mallampati Class: I TM Dist: >3cm Neck ROM: Full Loose/Missing/Broken Teeth: Yes Assessment and Plan Assessment Anesthesia Assessment: Anesthesia Plan Discussed Final Anesthetic Review NPO: Yes ASA Class: III Final Preanesthetic Review: No Changes in Pt Med Stat, Meds/Allgs Chart Reviewed, Consent Obtained/Reviewed and Anes Risks/Benef Reviewed Patient Risk: Intermediate Procedure Risk: Low Anesthetic Plan Anesthetic Plan: GA Disposition: Standard PACU
[2021-11-10] VITALS (7 sets, daily range): BP systolic 121–143; BP diastolic 64–91; PULSE 67–80; RESP 16–18; TEMP 36.2–36.4; O2SAT 96–100
--- NOTE | ~2021-11-10 | FL_ITS ---
EXAMINATION: XR FLUOROSCOPY WITH IMAGES CLINICAL INFORMATION: Lumbosacral pain. SIJ Innerv Stim Implant Bilateral COMPARISON: Fluoroscopic spot views 10/20/2021, 09/29/2021 TECHNIQUE: Fluoroscopy performed by Dr. Gabe You. Fluoroscopy time: 0.9 minutes. Cumulative Dose: 19.3 mGy. DAP: 5.28 Gy-cm2. Images: 3. FINDINGS: Stimulator electrode overlies the bilateral sacral wings, electrode tip overlying the anterior sacral cortex on lateral view. The electrodes show no kinking or defect. FL/FL guidance in OR IMPRESSION: Fluoroscopy for pain management procedures.
[2021-11-10] MEDS: Lactated Ringers 1,000 ML 100 ML IVCONT (10:19)
[2021-11-10 10:22] LABS: UPreg QC Valid YES; Urine Pregnancy NEGATIVE (NEGATIVE)
[2021-11-10 10:24] LABS: Glucose, Whole Blood 103 mg/dL (60-115)
--- NOTE | 2021-11-10 11:28 | MHC.SHP ---
Pre-Procedural Eval Section A Date of Service: 11/10/21 The patient is an INPATIENT: No Changes since office visit: Yes Patient answered all questions The History & Physical has been completed within 30 days and I have reviewed it.: No Section B Chief Complaint: sacrococcygeal disorders Details of Present Illness: as above Relevant Family History (Specify if Yes): No Relevant Social History: None Present Medications: see Short Stay Collaborative assessment Medical History: No relevant PMH History of Previous Operations: No relevant previous surgery Allergies: Allergies Allergy/AdvReac Type Severity Reaction Status Date / Time No Known Allergies Allergy Verified 10/26/21 10:55 Review of Systems Sugical H&P ROS: Negative: Constitution, Cardiovascular, Respiratory, Neurological, Psychiatric, Hem-Onc, Allergic/Immunologic, Gastrointestinal, Genitourinary, Integumentary, Endocrine and Eyes/Ears/Nose/Throat and Yes, Specify: Musculoskeletal (sacroiliitis) Exam Surgical H&P Exam: Normal: HEENT, Normal: Heart, Normal: Lungs, Normal: Extremities, Normal: Abdomen, Normal: Skin and Normal: Neurological Plan Diagnosis/Plan: Unchanged I have reviewed the history and physical and performed a pertinent physical examination on my patient. No changes have occurred unless specified.
--- NOTE | 2021-11-10 13:42 | P.BOP_ITS ---
Brief Operative Note Date of Service: 11/10/21 Pre-op diagnosis: sacroiliitis, SI Joint pain Procedure: Implantation of the SI joint stimulation bilateral Stimwave Implants: 2 stimulating electrodes stimwave. Surgeon: Gabe You MD Anesthesia: GETA Was an It Investment/Portfolio Manager used for this Procedure?: No Estimated blood loss (mL): 9 Pathology: none sent Condition: stable Disposition: PACU
--- NOTE | 2021-11-10 13:45 | W.PM.OPN ---
Operative Note Operative Note Date of Service: 11/10/21 Narrative: Implantation of the sacroiliac joint innervation stimulation stim wave bilateral. Informed consent was thoroughly explained to the patient before moving her to the operating room.? Risks and benefits were explained and all the questions were answered. Patient ? was taken to the operating room, she was Supine on the stretcher, [employer] [place] [employer]est[employer] monitors were applied and patient administered general inter tracheal anesthesia. after that the patient was transferred on the operating table prone. Time out was performed delineated correct name and of the patient, site, side and nature of the procedure, risks of DVT and fire, need for antibiotics. Her lower back and buttocks was prepped with ChloraPrep twice, and draped with Full body drape including Iob[place] film.? Sterilely draped C-arm was brought over the operating field and sq picture of patient's pelvis was demonstrated on the screen.? Two horizontal incisions 4 cm long each were performed on the skin 3 cm above the projection of the iliac crest to the skin. Before the incision the skin was numbed using mixture of lidocaine 2% and ropivacaine 0.5% 1-1 total of 4 cc. Thorough hemostasis was obtained. After that malleable introducer needle was used to insert through the right incision and advanced to were the sacral ala on the right. After needle met the bone on sacral ala it was redirected slightly posterior and continued to advance alongside the curvature of the sacral bone.? When the tip of the needle reached the end of the projection of the sacroiliac joint inferiorly advancement stops and guitar wire was introduced into the needle.? It went through the needle without difficulties.? After that 4 electrode stimulating array lead was inserted through the needle and advanced to the desired position.? The needle was removed and care was taken not to dislodge the lead.? The driving stylet was removed from the lead and it was replaced with stimulating copper wire antenna electrode.? After that The same manipulation was performed on the left side through the left horizontal incision. The anchoring sutures Tycron 0.0 were applied to each stimulating electrode and tied on the subcutaneous tissue. After that the the hemostasis was checked and wounds were regained it with normal saline mixed with vancomycin. After that attention was concentrated on midline where in the projection of L3,L4- L5 vertebral spinal processes the skin was infiltrated with above mentioned mixture of local anesthetics and 5 cm vertical incision was performed on the skin. Thorough hemostasis was obtained and incision was widened and deepened using electrocautery. After that tunneling devices were used to dislodge both stimulating leads from the horizontal incisions to midline vertical incision. The knots were tied on each of the electrode, the coil was formed above those electrodes and tied using Tycron sutures. After that the call was inserted into the wound, and positioned to avoid pressure on the skin. After that irrigation was performed all 3 wounds, 0 with serve sutures were used to close the wounds and 2-0 Polysorb sutures were used to approximate the skin level jaswinder were applied to the skin level. Bacitracin ointment was applied to each staple line and sterile dressing was applied., stimulating pad was applied and taped to the skin using Medipore tape. Upon completion of the procedure the patient was awaken Transferred on the stretcher, extubated, and transferred stable to the recovery room.
== END 2021-11-10 14:57 | disposition home or self-care (01) ==
LOC: HO.SSS 09:52
PROVIDERS: Nurse Practitioner; PCP Student in an Organized Health Care Education/Training Program; Visit Provider Anesthesiology
PROC: (CPT 64555; principal; 2021-11-10 11:30)
DX: M53.3 Sacrococcygeal disorders, not elsewhere classified (principal); M46.1 Sacroiliitis, not elsewhere classified; F41.1 Generalized anxiety disorder; M54.9 Dorsalgia, unspecified; I10 Essential (primary) hypertension; I25.2 Old myocardial infarction; I73.00 Raynaud's syndrome without gangrene; Z86.16 Personal history of COVID-19; F17.210 Nicotine dependence, cigarettes, uncomplicated
CPT/HCPCS: 64555 ×2; 81025; 82947; C1816; J0690; J1100; J2250; J2370; J2405; J2795; J3010; J3370

== ENCOUNTER → 2021-11-16 10:34 | Outpatient (BNVA) | payer MEDICAID, SELFPAY | PROVIDERS: PCP Student in an Organized Health Care Education/Training Program; Visit Provider Anesthesiology | DX: M53.3 Sacrococcygeal disorders, not elsewhere classified (principal); Z96.82 Presence of neurostimulator | CPT/HCPCS: 99212 ==

== ENCOUNTER → 2021-11-23 10:20 | Outpatient (BNVA) | payer MEDICAID, SELFPAY | PROVIDERS: PCP Student in an Organized Health Care Education/Training Program; Visit Provider Anesthesiology | DX: M53.3 Sacrococcygeal disorders, not elsewhere classified (principal); Z98.890 Other specified postprocedural states | CPT/HCPCS: 99212 ==

== ENCOUNTER 2022-06-21 11:41 | Outpatient (REF) | payer MEDICAID, SELFPAY ==
--- NOTE | ~2022-06-21 | XR_ITS ---
EXAMINATION: XR THORACOLUMBAR SPINE CLINICAL INFORMATION: Trauma COMPARISON: Previous x-ray December 2012 TECHNIQUE: 3 views of the thoracic spine including swimmer's view FINDINGS: Bone alignment is normal. No fracture or dislocation. Mild degenerative disc disease and spondylosis of the midthoracic spine. Normal paraspinal soft tissues. Degenerative spondylosis at C3-C4 and C4-C5. XR/XR thoracic spine 2V IMPRESSION: No fracture. Degenerative changes.
--- NOTE | ~2022-06-21 | XR_ITS ---
EXAMINATION: XR KNEE, LEFT CLINICAL INFORMATION: Pain COMPARISON: Previous x-ray November 2016 TECHNIQUE: 2 views of the left knee. FINDINGS: Bone alignment is normal. No fracture or dislocation. Small osteophytes at the medial femoral tibial and patellofemoral joints. No joint effusion. XR/XR knee LT 2V IMPRESSION: Mild degenerative changes.
== END 2022-06-21 11:42 | disposition home or self-care (01) ==
LOC: HO.XRAY 11:41
PROVIDERS: PCP Student in an Organized Health Care Education/Training Program; Visit Provider Pediatrics
DX: M25.562 Pain in left knee (principal); S29.9XXA Unspecified injury of thorax, initial encounter
CPT/HCPCS: 72070; 73560

== ENCOUNTER → 2022-06-28 15:16 | Outpatient (BNVA) | payer MEDICAID, SELFPAY | PROVIDERS: PCP Student in an Organized Health Care Education/Training Program; Visit Provider Anesthesiology | DX: M53.3 Sacrococcygeal disorders, not elsewhere classified (principal); M47.814 Spondylosis without myelopathy or radiculopathy, thoracic region; M54.6 Pain in thoracic spine | CPT/HCPCS: 99212 ==

== ENCOUNTER 2022-07-25 05:59 | Outpatient (REF) | payer MEDICAID, SELFPAY ==
--- NOTE | ~2022-07-25 | FL_ITS ---
EXAMINATION: XR FLUOROSCOPY WITH IMAGES CLINICAL INFORMATION: Pain thoracic spine COMPARISON: None available. TECHNIQUE: Fluoroscopy Supervised By: Dr. Kenny Chairez. Fluoroscopy Time: 0.8 minutes. Cumulative Dose: 58.2 mGy. DAP: 9.2 Gycm2. Images: 6. FINDINGS: There are several images obtained with needle positioned adjacent to bilateral T11, T12 and L1 pedicles with contrast opacifying the adjacent soft tissues. No aggressive lytic or sclerotic process seen. The paravertebral soft tissues are normal. FL/FL guidance in treatment room IMPRESSION: Fluoroscopy was provided to referring physician for pain management.
== END 2022-07-25 06:00 | disposition home or self-care (01) ==
LOC: CF 05:59
PROVIDERS: Visit Provider Anesthesiology
DX: M47.814 Spondylosis without myelopathy or radiculopathy, thoracic region (principal); M54.6 Pain in thoracic spine; M53.3 Sacrococcygeal disorders, not elsewhere classified
CPT/HCPCS: 64490; 64491; J2795; Q9967

== ENCOUNTER → 2022-08-02 15:56 | Outpatient (BNVA) | payer MEDICAID, SELFPAY | PROVIDERS: PCP Student in an Organized Health Care Education/Training Program; Visit Provider Anesthesiology | DX: M53.3 Sacrococcygeal disorders, not elsewhere classified (principal); M47.814 Spondylosis without myelopathy or radiculopathy, thoracic region; M54.6 Pain in thoracic spine; M06.9 Rheumatoid arthritis, unspecified | CPT/HCPCS: 99212 ==

== ENCOUNTER 2022-10-19 11:45 | Day surgery (SDC) | payer MEDICAID, SELFPAY ==
--- NOTE | ~2022-10-19 | FL_ITS ---
EXAMINATION: XR FLUOROSCOPY WITH IMAGES CLINICAL INFORMATION: T12 (possible T11) SPRINT. COMPARISON: None available. TECHNIQUE: Fluoroscopy Supervised By: Dr. Gabe You. Fluoroscopy Time: 0.1 minutes. Cumulative Dose: 3.43 mGy. DAP: 0.0582 Gycm2. Images: 2. FINDINGS: Images demonstrate needle or probe projecting over the right 12 vertebrae. Stimulator leads projecting over the spinal canal of the upper lumbar spine noted. FL/FL guidance in OR IMPRESSION: Fluoroscopy guidance for pain management procedure.
--- NOTE | 2022-10-19 12:21 | MHC.SHP ---
Pre-Procedural Eval Section A Date of Service: 10/19/22 The patient is an INPATIENT: No Changes since office visit: Yes Patient answered all questions The History & Physical has been completed within 30 days and I have reviewed it.: No Section B Chief Complaint: Spondylosis without myelopathy or radiculopathy, Details of Present Illness: as above Relevant Family History (Specify if Yes): No Relevant Social History: None Present Medications: None Medical History: No relevant PMH History of Previous Operations: No relevant previous surgery Allergies: Allergies Allergy/AdvReac Type Severity Reaction Status Date / Time prednisone AdvReac Unknown Hallucinati Verified 08/02/22 16:09 ons Review of Systems Sugical H&P ROS: Negative: Constitution, Cardiovascular, Respiratory, Neurological, Psychiatric, Hem-Onc, Allergic/Immunologic, Gastrointestinal, Genitourinary, Musculoskeletal, Integumentary, Endocrine and Eyes/Ears/Nose/Throat Exam Surgical H&P Exam: Normal: HEENT, Normal: Heart, Normal: Lungs, Normal: Extremities, Normal: Abdomen, Normal: Skin and Normal: Neurological Plan Diagnosis/Plan: Unchanged I have reviewed the history and physical and performed a pertinent physical examination on my patient. No changes have occurred unless specified. Time Spent With Patient Time: Total time managing care of this patient today ___5_ minutes.
[2022-10-19 12:26] VITALS: BP 146/91; PULSE 75; RESP 16; TEMP 36.3; O2SAT 100
[2022-10-19 12:29] VITALS: BMI 37.8
--- NOTE | 2022-10-19 14:26 | PM.OP ---
Brief Operative Note Date of Service: 10/19/22 Pre-op diagnosis: spondylosis thoraccic spine Post-op diagnosis: same Procedure: PNS T12 right sprint Implants: none permanent Surgeon: Gabe You MD Anesthesia: local Was an Lockstitch Topstitcher used for this Procedure?: No Estimated blood loss (mL): 0 Pathology: none sent Condition: stable Disposition: PACU
--- NOTE | 2022-10-19 14:27 | W.PM.OPN ---
Operative Note Operative Note Date of Service: 10/19/22 Narrative: Percutaneous implantation of peripheral nerve stimulation Sprint system T12 right side. After the risks, benefits and alternatives were discussed with the patient and informed consent was obtained, patient was placed in the prone position and padded to foster comfort. Time out was performed delineating correct site and side of the procedure , name and of the patient, patient participated in time out procedure. Sterily draped C-arm was brought over the operating field and clear picture of the L5 lamina on the right was delineated on the screen. The upper central portion of the lamina was chosen as a target of the needle tip insertion . After identifying and marking the intended target, the skin around the planned entry point and the subcutaneous tissues were injected with local anesthetic forming skin wheal.. A percutaneous sleeve and stimulating probe lead introduction system were assembled, inserted and advanced through the skin wheal to the point of interest under C-arm viewat 45 degree level to T12 right lamina., the introducer needle was delivered to a location in proximity to the nerve. Multiple stimulation parameters were used to deliver stimulation to the nerve in concert with stimulating at multiple positions around the nerve. The nerve target acquisition was confirmed noting generation of in the corresponding to the nerve being stimulated. Various electrical parameter combinations were tested, and the lead location was adjusted (physically relocated) until the patient indicated overlapping the distribution of the patient?s typical region of pain. The stimulating probe was removed from the introducer and a percutaneous lead was guided through the needle and delivered to a location in similar proximity to the nerve. Final location was verified with electrical stimulation. The introducer needle was removed, and the exposed end of the percutaneous lead was attached to an external stimulator unit. After that the procedure was repeated in the me ring fashion at left L4 level. At the end of the case various electrical parameter combinations were again tested until the patient indicated paresthesia or muscle tension overlapping the distribution of the patient?s typical region of pain. After confirming that lead impedance was in the normal range, the external unit was detached, the needle was removed, and the lead was anchored at the skin. The lead was threaded into the connector block and electrical continuity and desired patient response was confirmed. The connector block was attached to the external stimulator unit. The site was covered with a sterile occlusive dressing and a image was taken to document final placement. Upon completion of the procedure the patient was taken outside the OR where she recovered uneventfully she went home without immediate complications.
[2022-10-19 14:28] VITALS: BP 146/88; PULSE 74; RESP 18; TEMP 37.1; O2SAT 100
== END 2022-10-19 14:59 | disposition home or self-care (01) ==
PROVIDERS: PCP Student in an Organized Health Care Education/Training Program; Visit Provider Anesthesiology
PROC: (CPT 64555; principal; 2022-10-19 13:30)
DX: M47.814 Spondylosis without myelopathy or radiculopathy, thoracic region (principal); M54.6 Pain in thoracic spine; M53.3 Sacrococcygeal disorders, not elsewhere classified; M25.562 Pain in left knee; M25.561 Pain in right knee; M06.9 Rheumatoid arthritis, unspecified; I73.00 Raynaud's syndrome without gangrene; I10 Essential (primary) hypertension; I25.2 Old myocardial infarction; E11.9 Type 2 diabetes mellitus without complications; E66.01 Morbid (severe) obesity due to excess calories; Z68.37 Body mass index [BMI] 37.0-37.9, adult; G43.909 Migraine, unspecified, not intractable, without status migrainosus; R06.83 Snoring; F41.1 Generalized anxiety disorder; Z88.8 Allergy status to other drugs, medicaments and biological substances; Z98.890 Other specified postprocedural states; Z86.16 Personal history of COVID-19; F17.210 Nicotine dependence, cigarettes, uncomplicated
CPT/HCPCS: 64555; C1778; J2795

== ENCOUNTER → 2022-10-19 11:45 | Outpatient (BNV) | payer MEDICAID, SELFPAY | PROVIDERS: PCP Student in an Organized Health Care Education/Training Program; Visit Provider Anesthesiology | DX: M47.814 Spondylosis without myelopathy or radiculopathy, thoracic region (principal) | CPT/HCPCS: 64555; 64590 ==

== ENCOUNTER 2022-10-26 11:00 | Outpatient (AMB) | payer MEDICAID, SELFPAY ==
--- NOTE | 2022-10-26 11:02 | MHC.OFFVIS ---
Intake Vital Signs 10/26/22 11:24 Height 5 ft 4 in Weight 220 lb BMI 37.8 BP 124/86 Blood Pressure Location Lt brachial Position Sitting Respiration 16 Pulse 72 Pulse Source Pulse Oximeter Pulse Oximetry (%) 98 Oxygen Delivery Method Room Air Intake Visit Reasons: SPRINT 1 WEEK Intake Note: Pt here for post-op week 1 with Sprint device.? Dsg intact, clean/dry.? Site is clear with scant old red blood under surgical glue noted, and no redness/swelling/or active drng noted, wire is intact and device functioning properly, setting at 61 currently and pt expresses knowledge of operating device properly.? Site cleaned with alcohol prep and new dsd/teg dsg applied, while pt's girlfriend observed. Pt reports pain level of 5/10, prior to procedure 12/12. Pt's girlfriend who is a JEWELRY SALESPERSON, will be changing the dressings at home and she demonstrates understanding of dsg change process with no further questions at this time. Allergies prednisone Adverse Reaction (Unknown, Verified 10/26/22 11:25) Hallucinations HPI HPI Comments History of Present Illness Details Scarlet is here for post-op week 1 after insertion of the Sprint device.? Dressing was changed today, it is intact, clean and dry.? Site is clear with scant old red blood under surgical glue noted, and no redness,swelling or pathological discharge is observed. The wire is intact and device functioning properly, setting at 61 currently and Scarlet understands how to operate the device properly.? Site cleaned with alcohol prep and new dressing applied, while patient's girlfriend observed.? She reports pain level of 5/10, prior to procedure 12/12. The girlfriend who is a JEWELRY SALESPERSON, will be changing the dressings at home and she demonstrates understanding of dressing change process with no further questions at this time. Prior: diagnostic T11-T12 L1 bilateral medial branch block resulted in complete elimination of the pain for the 1st 5 hours after the procedure.? The pain relieve lasted more than a week after the injection. Obviously we have found her pain generator.? Those are thoracic facet joints.? I offered her steroid injections versus PNS print T12 right following T12 left 1 week after.? She also reports that she has significant hand stiffness in the morning.? His stiffness is lasting 3-4 hours.? This is justified to consider her a rheumatoid arthritis patient.? She is 42 years old and she is primary age for the onset of rheumatoid arthritis.? I will refer her to mental health professional. H/o xcellent results of stim wave bilateral sacroiliac joint stimulation stim wave/curonics.? she reports excellent pain trial with the device.? She reports excellent pain relief after the implant.? She reports all the pain in the lower back in the projection of the sacroiliac joints is all but gone.? Recently started to experience pain in the thoracic spine as well as pain in the knees bilateral.? Palpation of the thoracic spine in the projection of the approximately T6-T7 T8 spinous processes as well as paraspinal regions is very tender.? She reports limited ability to walk because of this pain.? She reports severe pain with range of motion.? She requests me to perform some injections to help her pain.? I will schedule her for T6-T7 T8 bilateral diagnostic medial branch block.? Possibility exist of treating this pain with sprint PNS.? Alternatively RFA comes to my mind however radiofrequency ablation of the thoracic medial branches considered experimental by most insurances.? The evidence in literature is scant on this procedure as well.? Therapeutic medial branches injections once diagnostic procedures established could be performed if it is desired by the patient.? It has been 6 months since implant of stim wave I do not think there are limitations anymore on steroid medications on this patient.? [facility] Medical History (Updated 08/02/22 @ 16:51 by Gabe You MD) Anxiety Back pain delivery delivered Depression Diabetes GERD (gastroesophageal reflux disease) History of COVID-19 HTN (hypertension) Hx of myocardial infarction Migraine Raynaud's disease without gangrene Snores Surgical History Carpal tunnel syndrome History of back surgery History of reversal of tubal ligation Hx of section Lipoma of arm Social History Are you a primary career based intervention coordinator to a significant other at home: No Do you presently have visiting nurse or other home services: No Patient Tobacco Use Status: Current everyday Tobacco user Tobacco use type: Cigarette Cigarettes Per Day: 3 Years Smoked: 27 Substance Use Type: Marijuana Review of Systems Const All systems reviewed & are unremarkable except as noted in HPI and below Physical Exam Vital Signs: Last Vital Signs Pulse 72 10/26/22 11:24 Resp 16 10/26/22 11:24 BP 124/86 10/26/22 11:24 Pulse Ox 98 10/26/22 11:24 Oxygen Delivery Method Room Air 10/26/22 11:24 BMI result Body Mass Index 37.8 Const General: cooperative and no acute distress Orientation/consciousness: patient oriented x3 Resp Effort & Inspection: normal respiratory effort, able to speak in complete sentences and no audible wheezes Back/Spine/Pelvis Other: Tenderness on palpation in paraspinal spinal region of the thoracic spine with most tender point at T7. Paraspinal regions are more tender that midline spinal. Cohn test Gaenslen test pelvic compression test pelvic destruction test Stinchfield test all positive bilaterally. SLR is negative. Bilateral normal strength of bilateral lower extremities. Valsalva is negative. Pelvic organ function is intact. Neuro General: patient oriented x3 Assessment & Plan Assessment & Plan (1) Sacroiliac joint pain: Code(s): M53.3 - Sacrococcygeal disorders, not elsewhere classified (2) Spondylosis, thoracic, without myelopathy: Code(s): M47.814 - Spondylosis without myelopathy or radiculopathy, thoracic region (3) Dorsalgia of thoracic region: Code(s): M54.6 - Pain in thoracic spine (4) Rheumatoid arthritis: Code(s): M06.9 - Rheumatoid arthritis, unspecified Plan Successful Implantation of the bilateral sacroiliac joint innervation stimulation stim wave. Very good results. Bilateral T11-T12- L1 MBB gave her 100% pain for the 1st 5 hours after the procedure. 1 week after the procedure reported pain level 2/10 and great mobility increase social interactions. Sprint PNS is plaaned we compleded the right side and the patiernt will be scheduled for the left side. Previously diet and exercise to lose weight discussed.. Coding Level of Care Code Est Pt Level 4 (79681) Diagnoses Sacroiliac joint pain M53.3 Spondylosis, thoracic, without myelopathy M47.814 Dorsalgia of thoracic region M54.6 Rheumatoid arthritis M06.9
[2022-10-26 11:24] VITALS: BP 124/86; PULSE 72; RESP 16; O2SAT 98; BMI 37.8
== END 2022-10-26 11:22 | disposition home or self-care (01) ==
PROVIDERS: PCP Student in an Organized Health Care Education/Training Program; Visit Provider Anesthesiology
DX: M53.3 Sacrococcygeal disorders, not elsewhere classified (principal); M47.814 Spondylosis without myelopathy or radiculopathy, thoracic region; M54.6 Pain in thoracic spine; M06.9 Rheumatoid arthritis, unspecified
CPT/HCPCS: 99024

== ENCOUNTER → 2022-10-26 11:00 | Outpatient (BNVA) | payer MEDICAID, SELFPAY | PROVIDERS: PCP Student in an Organized Health Care Education/Training Program; Visit Provider Anesthesiology | DX: M53.3 Sacrococcygeal disorders, not elsewhere classified (principal); M47.814 Spondylosis without myelopathy or radiculopathy, thoracic region; M54.6 Pain in thoracic spine; M06.9 Rheumatoid arthritis, unspecified; Z98.890 Other specified postprocedural states | CPT/HCPCS: 99212 ==

== ENCOUNTER 2022-11-02 10:32 | Day surgery (SDC) | payer MEDICAID, SELFPAY ==
--- NOTE | ~2022-11-02 | FL_ITS ---
EXAMINATION: XR FLUOROSCOPY WITH IMAGES CLINICAL INFORMATION: Pain. COMPARISON: None available. TECHNIQUE: Fluoroscopy Supervised By: Dr. Gabe You. Fluoroscopy Time: 0.1 min. Cumulative Dose: 2.32 mGy. DAP: 0.634 Gy-cm2. Images: 1. FINDINGS: There is a single digital image obtained of the dorsal spine with a solitary pacer electrode retrospectively positioned from T10 to T12 vertebrae. No gross bony abnormality seen. The paravertebral soft tissues are normal. FL/FL guidance in OR IMPRESSION: Fluoroscopy was provided to referring physician for pain management.
[2022-11-02 10:54] VITALS: BMI 37.8
--- NOTE | 2022-11-02 12:01 | MHC.SHP ---
Pre-Procedural Eval Section A Date of Service: 11/02/22 The patient is an INPATIENT: No Changes since office visit: Yes Patient answered all questions The History & Physical has been completed within 30 days and I have reviewed it.: No Section B Chief Complaint: Spondylosis without myelopathy or radiculopathy, Details of Present Illness: as above Relevant Family History (Specify if Yes): No Relevant Social History: None Present Medications: None Medical History: No relevant PMH History of Previous Operations: No relevant previous surgery Allergies: Allergies Allergy/AdvReac Type Severity Reaction Status Date / Time prednisone AdvReac Unknown Hallucinati Verified 11/02/22 10:54 ons Review of Systems Sugical H&P ROS: Negative: Constitution, Cardiovascular, Respiratory, Neurological, Psychiatric, Hem-Onc, Allergic/Immunologic, Gastrointestinal, Genitourinary, Musculoskeletal, Integumentary, Endocrine and Eyes/Ears/Nose/Throat Exam Surgical H&P Exam: Normal: HEENT, Normal: Heart, Normal: Lungs, Normal: Extremities, Normal: Abdomen, Normal: Skin and Normal: Neurological Plan Diagnosis/Plan: Unchanged I have reviewed the history and physical and performed a pertinent physical examination on my patient. No changes have occurred unless specified. Time Spent With Patient Time: Total time managing care of this patient today ____ minutes.
--- NOTE | 2022-11-02 12:22 | W.PM.OPN ---
Operative Note Operative Note Date of Service: 11/02/22 Narrative: Percutaneous implantation of peripheral nerve stimulation Sprint system T12 left side. After the risks, benefits and alternatives were discussed with the patient and informed consent was obtained, patient was placed in the prone position and padded to foster comfort. Time out was performed delineating correct site and side of the procedure , name and of the patient, patient participated in time out procedure. Sterily draped C-arm was brought over the operating field and clear picture of the T12 lamina on the left was delineated on the screen. The upper central portion of the lamina was chosen as a target of the needle tip insertion . After identifying and marking the intended target, the skin around the planned entry point and the subcutaneous tissues were injected with local anesthetic forming skin wheal.. A percutaneous sleeve and stimulating probe lead introduction system were assembled, inserted and advanced through the skin wheal to the point of interest under C-arm viewat 45 degree level to T12 left lamina., the introducer needle was delivered to a location in proximity to the nerve. Multiple stimulation parameters were used to deliver stimulation to the nerve in concert with stimulating at multiple positions around the nerve. The nerve target acquisition was confirmed noting generation of in the corresponding to the nerve being stimulated. Various electrical parameter combinations were tested, and the lead location was adjusted (physically relocated) until the patient indicated overlapping the distribution of the patient?s typical region of pain. The stimulating probe was removed from the introducer and a percutaneous lead was guided through the needle and delivered to a location in similar proximity to the nerve. Final location was verified with electrical stimulation. The introducer needle was removed, and the exposed end of the percutaneous lead was attached to an external stimulator unit. At the end of the case various electrical parameter combinations were again tested until the patient indicated paresthesia or muscle tension overlapping the distribution of the patient?s typical region of pain. After confirming that lead impedance was in the normal range, the external unit was detached, the needle was removed, and the lead was anchored at the skin. The lead was threaded into the connector block and electrical continuity and desired patient response was confirmed. The connector block was attached to the external stimulator unit. The site was covered with a sterile occlusive dressing and a image was taken to document final placement. Upon completion of the procedure the patient was taken outside the OR where she recovered uneventfully she went home without immediate complications.
--- NOTE | 2022-11-02 12:24 | PM.OP ---
Brief Operative Note Date of Service: 11/02/22 Pre-op diagnosis: spondylosis thoracic spine Post-op diagnosis: same Procedure: SPRINT PNS T12 left Implants: 60 days Sprint stim wire. Surgeon: Gabe You MD Anesthesia: local Was an It Coordinator used for this Procedure?: No Estimated blood loss (mL): 0 Condition: stable Disposition: PACU
[2022-11-02 12:32] VITALS: BP 160/94; PULSE 73; RESP 20; TEMP 36.2; O2SAT 97
== END 2022-11-02 12:44 | disposition home or self-care (01) ==
PROVIDERS: PCP Student in an Organized Health Care Education/Training Program; Visit Provider Anesthesiology
PROC: (CPT 64555; principal; 2022-11-02 13:40)
DX: M47.814 Spondylosis without myelopathy or radiculopathy, thoracic region (principal); M54.6 Pain in thoracic spine; M53.3 Sacrococcygeal disorders, not elsewhere classified; M06.9 Rheumatoid arthritis, unspecified; I10 Essential (primary) hypertension; E11.9 Type 2 diabetes mellitus without complications; I25.2 Old myocardial infarction; I73.00 Raynaud's syndrome without gangrene; Z88.8 Allergy status to other drugs, medicaments and biological substances; F32.A Depression, unspecified; Z86.16 Personal history of COVID-19; R06.83 Snoring; Z98.890 Other specified postprocedural states; F17.210 Nicotine dependence, cigarettes, uncomplicated
CPT/HCPCS: 64555; C1778; J2795

== ENCOUNTER → 2022-11-02 10:32 | Outpatient (BNV) | payer MEDICAID, SELFPAY | PROVIDERS: PCP Student in an Organized Health Care Education/Training Program; Visit Provider Anesthesiology | DX: M47.814 Spondylosis without myelopathy or radiculopathy, thoracic region (principal) | CPT/HCPCS: 64555 ==

== ENCOUNTER 2022-11-08 10:43 | Outpatient (REF) | payer MEDICAID, SELFPAY ==
[2022-11-08 12:14] LABS: MANUAL DIFF FLAG NO
[2022-11-08 12:43] LABS: Basophils Percent Auto 0.3 % (0-2); Eosinophils Absolute Auto 0.1 X10*3/uL (0.0-0.4); Hematocrit 38.9 % (37.0-47.0); Hemoglobin 12.4 g/dl (12.0-16.0); Imm Gran Abs Auto 0.03 X10*3/uL (0.00-0.03); Imm Gran Pct Auto 0.3 % (0.0-0.4); Lymphocytes Absolute Auto 2.2 X10*3/uL (1.2-4.9); Lymphocytes Percent Auto 20.1 % (20-40); Mean Corpuscular HGB Conc 31.9 g/dl (31.0-35.0); Mean Corpuscular Hemoglobin 26.2 pg (27.0-33.0); Mean Corpuscular Volume 82.1 fL (80.0-98.0); Mean Platelet Volume 10.2 fL (9.4-12.3); Monocytes Absolute Auto 0.7 X10*3/uL (0.1-1.2); Monocytes Percent Auto 5.9 % (2-11); Neutrophils Absolute Auto 7.9 x10*3/uL (2.0-8.3); Neutrophils Percent Auto 72.4 % (45-73); Platelet Count 362 X10*3/uL (160-400); Red Blood Count 4.74 X10*6/uL (4.20-5.50); Red Cell Distribution Width 15.3 % (11.0-16.0)
[2022-11-08 13:19] LABS: Erythrocyte Sedimentation Rate 36 MM/HR (0-20)
[2022-11-08 13:41] LABS: Appearance Urine Clear; Color Urine Yellow; Glucose Urine UA Negative (Negative); Leukocyte Esterase Urine Negative (Negative); Nitrite Urine Negative (Negative); PH 5.5 (5.0-9.0); Urine Blood Negative (Negative); Urine Ketones Negative (Negative); Urine Protein Negative (Neg-Trace)
[2022-11-08 13:50] LABS: Bacteria Urine Trace (None Seen); Hyaline Casts Urine 0-2 /LPF (0-2); WBC Urine 0-5 /HPF (0-5)
[2022-11-08 13:52] LABS: Alanine Aminotransferase 20 U/L (0-31); Albumin Level 4.3 g/dL (3.5-5.0); Alkaline Phosphatase 145 U/L (39-117); Anion Gap 14 (12-20); Aspartate Amino Transferase 17 U/L (5-31); Bilirubin Total 0.2 mg/dL (0.0-1.0); Blood Urea Nitrogen 15 mg/dL (9-16); C Reactive Protein 3.81 mg/dL (< or = 0.50); Calcium 9.5 mg/dL (8.4-10.2); Carbon Dioxide 22 mmol/L (22-29); Chloride 107 mmol/L (96-108); Estimated Glomerular Filt Rate 53; Glucose Random 91 mg/dL (60-115); Potassium 3.5 mmol/L (3.3-5.1); Sodium 139 mmol/L (135-145); Total Protein 8.3 g/dL (6.5-8.0)
[2022-11-08 13:55] LABS: Creatinine Urine 28.78 mg/dL; Total Protein Urine Random < 7 mg/dL (<12)
[2022-11-08 13:55] LABS: Rheumatoid Factor < 13.0 IU/mL (<15.0)
[2022-11-09 08:28] LABS: HBS Num1 592.65 mIU/mL (0-7.99); HBc Num1 0.17 S/CO (0.00-0.79); HBsAGNum1 0.42 S/CO (0.00-0.99); Hepatitis A Antibody IgM 0.23 Index (0-0.79); Hepatitis B Core Antibody Nonreactive (Nonreactive); Hepatitis B Surface Antigen Negative (Negative); ~HepC Num1 0.12 S/CO (0.00-0.79); ~Hepatitis A Antibody IgM Nonreactive (Nonreactive); ~Hepatitis B Surface Antibody REACTIVE (Nonreactive); ~Hepatitis C Antibody Nonreactive (Nonreactive)
[2022-11-10 12:04] LABS: Prot Elec - Albumin 4.1 g/dL (3.8-4.8); Prot Elec - Alpha1 0.4 g/dL (0.2-0.3); Prot Elec - Alpha2 0.9 g/dL (0.5-0.9); Prot Elec - Beta 1 0.6 g/dL (0.4-0.6); Prot Elec - Beta 2 0.6 g/dL (0.2-0.5); Prot Elec - Gamma 1.5 g/dL (0.8-1.7); Prot Elec - Total Protein 8.1 g/dL (6.1-8.1)
[2022-11-10 13:28] LABS: Cyclic Citrullinated Peptide <16 UNITS
[2022-11-10 17:58] LABS: Anti DNA DS Antibody 3 IU/mL; Antibody to SS-A Antigen <1.0 NEG AI (<1.0 NEG); Antibody to SS-B Antigen <1.0 NEG AI (<1.0 NEG); SM/Ribonucleoprotein Ab <1.0 NEG AI (<1.0 NEG); Smith Protein <1.0 NEG AI (<1.0 NEG)
[2022-11-10 17:59] LABS: Complement C3 165 mg/dL (83-193)
[2022-11-10 20:44] LABS: IgA 475 mg/dL (47-310); IgG 1779 mg/dL (600-1640); IgM 146 mg/dL (50-300)
[2022-11-13 13:04] LABS: Anti Nuclear Antibody Screen NEGATIVE (NEGATIVE)
[2022-11-14 20:13] LABS: Centromere Protein A Ab <11 SI (<11); Centromere Protein B Ab <11 SI (<11); Fibrillarin Ab <11 SI (<11); PM SCL 100 Ab <11 SI (<11); PM SCL 75 Ab <11 SI (<11); RNA Polymerase III RP11 Ab <11 SI (<11); RNA Polymerase III RP155 Ab <11 SI (<11); SCL-70 Extractable Nuclear Ab <11 SI (<11); Th-To Ab <11 SI (<11); U1 SNRNP RNP 70KD <11 SI (<11); U1 SNRNP RNP A <11 SI (<11); U1 SNRNP RNP C <11 SI (<11)
== END 2022-11-08 10:44 | disposition home or self-care (01) ==
LOC: HO.LAB 10:43
PROVIDERS: PCP Student in an Organized Health Care Education/Training Program; Visit Provider Student in an Organized Health Care Education/Training Program
DX: Z11.59 Encounter for screening for other viral diseases (principal); M06.9 Rheumatoid arthritis, unspecified; M34.9 Systemic sclerosis, unspecified; M25.50 Pain in unspecified joint; I73.00 Raynaud's syndrome without gangrene; M70.62 Trochanteric bursitis, left hip
CPT/HCPCS: 36415; 80053; 81001; 82570; 82784; 84156; 84165; 84182; 85025; 85652; 86038; 86140; 86160; 86200; 86225; 86235; 86334; 86431; 86704; 86706; 86709; 86803; 87340; 99202

== ENCOUNTER 2022-11-08 10:43 | Outpatient (AMB) | payer MEDICAID, SELFPAY ==
--- NOTE | 2022-11-08 10:51 | MHC.OFFVIS ---
Intake Vital Signs 11/08/22 10:52 Height 5 ft 4 in Weight 216 lb 0.848 oz BMI 37.1 BP 140/78 H Blood Pressure Location Rt brachial Position Sitting Pulse 79 Pulse Source Pulse Oximeter Temp 98.1 F Temp Source Skin Pulse Oximetry (%) 99 Intake Visit Reasons: RA Intake Note: New pt presents today for RA consult. States her pain started in 2019 so many procedures disc shaved, stemwave, sprint, injections Follows with 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 Patient stated that since 2019 she has been having intermittent pain and swelling in between her knuckles bilaterally. This happens once or twice a week associated with morning stiffness lasting 4-5 hours. Also gets left knee swelling worse with walking. She has pain in her toes as well. She had multiple procedures by Pain Management and according to patient nothing was significantly helpful. She also has pain on the outside of both hips. She is unaware of any family history of autoimmune rheumatic disease as she is adopted. Patient had 4 pregnancies, 3 miscarriages and 1 live . No known history of DVT/PE [facility] Medical History (Updated 11/08/22 @ 11:38 by Kasandra Jaramillo MD) Anxiety Back pain delivery delivered Depression Diabetes GERD (gastroesophageal reflux disease) History of COVID-19 HTN (hypertension) Hx of myocardial infarction Migraine Raynaud's disease without gangrene Snores Surgical History Carpal tunnel syndrome History of back surgery History of reversal of tubal ligation Hx of section Lipoma of arm Family History Other Adopted person Medical history unknown Social History Are you a primary care analyst to a significant other at home: No Do you presently have visiting nurse or other home services: No Alcohol intake: current Alcohol intake frequency: does not drink Patient Tobacco Use Status: Current someday Tobacco user Tobacco use type: Cigarette Cigarettes Per Day: 3 Years Smoked: 27 Substance Use Type: Marijuana Current occupational status: other 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 Reproductive History Menstrual Total pregnancies: 4 Number of Living Children: 1 Ab spontaneous: 3 Review of Systems Const Reports fatigue and Reports weakness ENT Reports neck pain Musc Reports back pain, Reports arthralgias, Reports joint swelling, Reports limited range of motion, Reports neck pain and Reports stiffness Skin/Breast Denies rash Neuro Reports weakness Endo Reports fatigue Physical Exam Vital Signs: Last Vital Signs Temp 98.1 F 11/08/22 10:52 Pulse 79 11/08/22 10:52 BP 140/78 H 11/08/22 10:52 Pulse Ox 99 11/08/22 10:52 BMI result Body Mass Index 37.1 Const General: cooperative, healthy appearing and comfortable Nutritional Appearance: obese morbidly obese Orientation/consciousness: patient oriented x3 Limitations: no limitations HEENT Head: Yes normocephalic and Yes atraumatic Mouth: moist mucous membranes Resp Effort & Inspection: normal respiratory effort and able to speak in complete sentences Auscultation: clear to auscultation bilaterally Cardio Rate: regular rate Rhythm: regular rhythm Neuro General: patient oriented x3 Extrem Other: No wrist swelling or tenderness or pain with flexion extension bilaterally Left 5th MCP tenderness without swelling Negative MCP squeeze test bilaterally Normal nailfold capillaroscopy Normal range of motion of both elbows and shoulders without pain Left trochanteric bursa area tenderness with negative Latasha's test No knee swelling or tenderness or pain with full flexion and full extension No ankle swelling or tenderness Right 3rd and 4th MTP tenderness Left 3rd MTP tenderness Assessment & Plan Assessment & Plan (1) Polyarthralgia: Code(s): M25.50 - Pain in unspecified joint Plan: This is a 42-year-old female with chronic degenerative disc disease of her spine s/p multiple procedures by Pain Management who is referred from Pain Management for evaluation of inflammatory arthritis. Upon evaluation patient has some features of inflammatory arthritis but mostly degenerative arthritis. Will order comprehensive serology to screen for underlying autoimmune rheumatic disease. Check x-rays of involved joints to evaluate for inflammatory arthropathy (2) Raynaud's disease without gangrene: Code(s): I73.00 - Raynaud's syndrome without gangrene Plan: Will check scleroderma & SLE antibodies (3) Trochanteric bursitis of left hip: Code(s): M70.62 - Trochanteric bursitis, left hip Plan: Patient has a follow-up appointment with pain management tomorrow. Advised patient to discuss it with pain management Plan I spent 46 minutes reviewing patient's chart, evaluating patient, ordering diagnostic workup, counseling patient and documenting in the chart Orders: Orders Cyclic Citrullinated Peptide Today M06.9 - Rheumatoid arthritis, unspecified Comprehensive Met. Panel Today M06.9 - Rheumatoid arthritis, unspecified C Reactive Protein Today M06.9 - Rheumatoid arthritis, unspecified Rheumatoid Factor Today M06.9 - Rheumatoid arthritis, unspecified Complete Blood Count Auto Diff Today M06.9 - Rheumatoid arthritis, unspecified Erythrocyte Sedimentation Rate Today M06.9 - Rheumatoid arthritis, unspecified MARSHAL Reflex Titer and Pattern Today M06.9 - Rheumatoid arthritis, unspecified Immunofixation Pnl, Serum Today M06.9 - Rheumatoid arthritis, unspecified Protein Electrophoresis, Serum Today M06.9 - Rheumatoid arthritis, unspecified Hepatitis A,B,C Profile Today Z11.59 - Encounter for screening for other viral diseases XR foot LT min 3V Today M06.9 - Rheumatoid arthritis, unspecified XR foot RT min 3V Today M06.9 - Rheumatoid arthritis, unspecified XR hand wrist LT Today M06.9 - Rheumatoid arthritis, unspecified XR hand wrist RT Today M06.9 - Rheumatoid arthritis, unspecified Scleroderma 12 Panel Today M34.9 - Systemic sclerosis, unspecified Protein Creatinine Ratio, Ur Today M34.9 - Systemic sclerosis, unspecified Complement C3 Today M34.9 - Systemic sclerosis, unspecified Complement C4 Today M34.9 - Systemic sclerosis, unspecified Anti DNA DS Antibody Today M34.9 - Systemic sclerosis, unspecified Anti Extractable Nuclear Ag Today M34.9 - Systemic sclerosis, unspecified Sjogren's Antibodies Today M34.9 - Systemic sclerosis, unspecified UA w Microscopic Today M34.9 - Systemic sclerosis, unspecified Coding Level of Care Code New Pt Level 4 (64913) Diagnoses Polyarthralgia M25.50 Raynaud's disease without gangrene I73.00 Trochanteric bursitis of left hip M70.62
[2022-11-08 10:52] VITALS: BP 140/78; PULSE 79; TEMP 36.7; O2SAT 99; BMI 37.1
== END 2022-11-08 11:30 | disposition home or self-care (01) ==
PROVIDERS: PCP Student in an Organized Health Care Education/Training Program; Visit Provider Student in an Organized Health Care Education/Training Program
DX: M25.50 Pain in unspecified joint (principal); I73.00 Raynaud's syndrome without gangrene; M70.62 Trochanteric bursitis, left hip
CPT/HCPCS: 99204

== ENCOUNTER 2022-11-09 10:26 | Outpatient (AMB) | payer MEDICAID, SELFPAY ==
--- NOTE | 2022-11-09 10:32 | MHC.OFFVIS ---
Intake Vital Signs 11/09/22 12:03 Height 5 ft 4 in Weight 212 lb BMI 36.4 BP 148/70 H Blood Pressure Location Lt brachial Position Sitting Respiration 16 Pulse 70 Pulse Source Pulse Oximeter Pulse Oximetry (%) 99 Oxygen Delivery Method Room Air Intake Visit Reasons: sprint week 2 Intake Note: patient comes in for post-op week 2 with Sprint device.?Site is clear with old red blood under surgical glue noted, and no redness/swelling/drainage noted at site, wire was protruding quarter of an inch and patient doesn't feel like the device is functioning properly, setting it at 86 currently. The site was cleaned with alcohol prep pad, and new dsd/tegaderm with 4x4 gauze applied. Allergies prednisone Adverse Reaction (Unknown, Verified 11/09/22 12:13) Hallucinations HPI HPI Comments History of Present Illness Details Scarlet is here for post-op week 2 after insertion of the Sprint device.? Dressing was changed today, it is intact, clean and dry.?However she reports that she feels that the stimulation became weaker, the weather was humid and hot and she was taking showers getting in and out of bath tub. This might dislodged her stimulation electrodes.On the dressing change the electrodes appear to be slightly withdrawn from the regular position. No signs of bleeding or infection. We agreed that she will try stimulation with higher setting and if this is not working we would need to reinsert the system. Prior: diagnostic T11-T12 L1 bilateral medial branch block resulted in complete elimination of the pain for the 1st 5 hours after the procedure.? The pain relieve lasted more than a week after the injection. Obviously we have found her pain generator.? Those are thoracic facet joints.? I offered her steroid injections versus PNS print T12 right following T12 left 1 week after.? She also reports that she has significant hand stiffness in the morning.? His stiffness is lasting 3-4 hours.? This is justified to consider her a rheumatoid arthritis patient.? She is 42 years old and she is primary age for the onset of rheumatoid arthritis.? I will refer her to senior ui web developer. H/o excellent results of stim wave bilateral sacroiliac joint stimulation stim wave/curonics.? she reports excellent pain trial with the device.? She reports excellent pain relief after the implant.? She reports all the pain in the lower back in the projection of the sacroiliac joints is all but gone.? Recently started to experience pain in the thoracic spine as well as pain in the knees bilateral.? Palpation of the thoracic spine in the projection of the approximately T6-T7 T8 spinous processes as well as paraspinal regions is very tender.? She reports limited ability to walk because of this pain.? She reports severe pain with range of motion.? She requests me to perform some injections to help her pain.? I will schedule her for T6-T7 T8 bilateral diagnostic medial branch block.? Possibility exist of treating this pain with sprint PNS.? Alternatively RFA comes to my mind however radiofrequency ablation of the thoracic medial branches considered experimental by most insurances.? The evidence in literature is scant on this procedure as well.? Therapeutic medial branches injections once diagnostic procedures established could be performed if it is desired by the patient.? It has been 6 months since implant of stim wave I do not think there are limitations anymore on steroid medications on this patient.? [facility] Medical History (Updated 11/08/22 @ 11:38 by Kasandra Jaramillo MD) Diabetes GERD (gastroesophageal reflux disease) Depression Migraine Back pain Snores Hx of myocardial infarction Anxiety History of COVID-19 HTN (hypertension) Raynaud's disease without gangrene delivery delivered Surgical History History of reversal of tubal ligation Hx of section History of back surgery Lipoma of arm Carpal tunnel syndrome Family History Other Adopted person Medical history unknown Social History Are you a primary senior caregiver to a significant other at home: No Do you presently have visiting nurse or other home services: No Alcohol intake: current Alcohol intake frequency: does not drink Patient Tobacco Use Status: Current someday Tobacco user Tobacco use type: Cigarette Cigarettes Per Day: 3 Years Smoked: 27 Substance Use Type: Marijuana Current occupational status: other 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 Review of Systems Const All systems reviewed & are unremarkable except as noted in HPI and below Physical Exam Vital Signs: Last Vital Signs Pulse 70 11/09/22 12:03 Resp 16 11/09/22 12:03 BP 148/70 H 11/09/22 12:03 Pulse Ox 99 11/09/22 12:03 Oxygen Delivery Method Room Air 11/09/22 12:03 BMI result Body Mass Index 36.4 Const General: cooperative and no acute distress Orientation/consciousness: patient oriented x3 Resp Effort & Inspection: normal respiratory effort, able to speak in complete sentences and no audible wheezes Back/Spine/Pelvis Other: Tenderness on palpation in paraspinal spinal region of the thoracic spine with most tender point at T7. Paraspinal regions are more tender that midline spinal. Chon test Gaenslen test pelvic compression test pelvic destruction test Stinchfield test all positive bilaterally. SLR is negative. Bilateral normal strength of bilateral lower extremities. Valsalva is negative. Pelvic organ function is intact. Neuro General: patient oriented x3 Assessment & Plan Assessment & Plan (1) Sacroiliac joint pain: Code(s): M53.3 - Sacrococcygeal disorders, not elsewhere classified (2) Spondylosis, thoracic, without myelopathy: Code(s): M47.814 - Spondylosis without myelopathy or radiculopathy, thoracic region (3) Dorsalgia of thoracic region: Code(s): M54.6 - Pain in thoracic spine (4) Rheumatoid arthritis: Code(s): M06.9 - Rheumatoid arthritis, unspecified Plan H/o good result of PNS stimwave for SI joints pain. H/o good results of Sprint PNS T12 after successful lower thoracic uper lumbar MBB. Now with the Sprint PNS reported initial good results but today reported weaken stimulation. On dressing change the electrodes appear to be withdrawn slightly - she will try stimulating over the weekend on higher setting and will report to us the results. If not a satisfactory outcome we will have to change the system. Coding Level of Care Code Est Pt Level 3 (52594) Diagnoses Sacroiliac joint pain M53.3 Spondylosis, thoracic, without myelopathy M47.814 Dorsalgia of thoracic region M54.6 Rheumatoid arthritis M06.9
[2022-11-09 12:03] VITALS: BP 148/70; PULSE 70; RESP 16; O2SAT 99; BMI 36.4
== END 2022-11-09 11:45 | disposition home or self-care (01) ==
PROVIDERS: PCP Student in an Organized Health Care Education/Training Program; Visit Provider Anesthesiology
DX: M53.3 Sacrococcygeal disorders, not elsewhere classified (principal); M47.814 Spondylosis without myelopathy or radiculopathy, thoracic region; M54.6 Pain in thoracic spine; M06.9 Rheumatoid arthritis, unspecified
CPT/HCPCS: 99024

== ENCOUNTER → 2022-11-09 10:26 | Outpatient (BNVA) | payer MEDICAID, SELFPAY | PROVIDERS: PCP Student in an Organized Health Care Education/Training Program; Visit Provider Anesthesiology ==

== ENCOUNTER 2022-11-13 10:47 | Outpatient (REF) | payer MEDICAID, SELFPAY ==
--- NOTE | ~2022-11-13 | XR_ITS ---
EXAMINATION: XR HAND/WRIST, BILATERAL XR FOOT, BILATERAL CLINICAL INFORMATION: Rheumatoid arthritis. COMPARISON: None available. TECHNIQUE: 4 views of each hand/wrist. 3 views of each foot. FINDINGS: Bilateral Hand/Wrist: No acute osseous abnormality. No periarticular osteopenia, erosions, or suspicious soft tissue calcifications. No significant joint space narrowing of either hand. Bilateral Feet: No periarticular osteopenia, erosions, or suspicious soft tissue calcifications. Small marginal osteophytes of the left 1st MTP joint. Mild osteoarthritis of the midfoot with dorsal osteophytes, right greater than left. Prominent bilateral heel spurs. XR/XR hand wrist LT IMPRESSION: 1. No evidence of an active inflammatory arthropathy of either hand or wrist. 2. Mild degenerative changes of the left 1st MTP joint and right midfoot. Prominent heel spurs. No erosions of either foot.
--- NOTE | ~2022-11-13 | XR_ITS ---
EXAMINATION: XR HAND/WRIST, BILATERAL XR FOOT, BILATERAL CLINICAL INFORMATION: Rheumatoid arthritis. COMPARISON: None available. TECHNIQUE: 4 views of each hand/wrist. 3 views of each foot. FINDINGS: Bilateral Hand/Wrist: No acute osseous abnormality. No periarticular osteopenia, erosions, or suspicious soft tissue calcifications. No significant joint space narrowing of either hand. Bilateral Feet: No periarticular osteopenia, erosions, or suspicious soft tissue calcifications. Small marginal osteophytes of the left 1st MTP joint. Mild osteoarthritis of the midfoot with dorsal osteophytes, right greater than left. Prominent bilateral heel spurs. XR/XR foot RT min 3V IMPRESSION: 1. No evidence of an active inflammatory arthropathy of either hand or wrist. 2. Mild degenerative changes of the left 1st MTP joint and right midfoot. Prominent heel spurs. No erosions of either foot.
--- NOTE | ~2022-11-13 | XR_ITS ---
EXAMINATION: XR HAND/WRIST, BILATERAL XR FOOT, BILATERAL CLINICAL INFORMATION: Rheumatoid arthritis. COMPARISON: None available. TECHNIQUE: 4 views of each hand/wrist. 3 views of each foot. FINDINGS: Bilateral Hand/Wrist: No acute osseous abnormality. No periarticular osteopenia, erosions, or suspicious soft tissue calcifications. No significant joint space narrowing of either hand. Bilateral Feet: No periarticular osteopenia, erosions, or suspicious soft tissue calcifications. Small marginal osteophytes of the left 1st MTP joint. Mild osteoarthritis of the midfoot with dorsal osteophytes, right greater than left. Prominent bilateral heel spurs. XR/XR hand wrist RT IMPRESSION: 1. No evidence of an active inflammatory arthropathy of either hand or wrist. 2. Mild degenerative changes of the left 1st MTP joint and right midfoot. Prominent heel spurs. No erosions of either foot.
--- NOTE | ~2022-11-13 | XR_ITS ---
EXAMINATION: XR HAND/WRIST, BILATERAL XR FOOT, BILATERAL CLINICAL INFORMATION: Rheumatoid arthritis. COMPARISON: None available. TECHNIQUE: 4 views of each hand/wrist. 3 views of each foot. FINDINGS: Bilateral Hand/Wrist: No acute osseous abnormality. No periarticular osteopenia, erosions, or suspicious soft tissue calcifications. No significant joint space narrowing of either hand. Bilateral Feet: No periarticular osteopenia, erosions, or suspicious soft tissue calcifications. Small marginal osteophytes of the left 1st MTP joint. Mild osteoarthritis of the midfoot with dorsal osteophytes, right greater than left. Prominent bilateral heel spurs. XR/XR foot LT min 3V IMPRESSION: 1. No evidence of an active inflammatory arthropathy of either hand or wrist. 2. Mild degenerative changes of the left 1st MTP joint and right midfoot. Prominent heel spurs. No erosions of either foot.
== END 2022-11-13 10:48 | disposition home or self-care (01) ==
LOC: HO.XRAY 10:47
PROVIDERS: PCP Student in an Organized Health Care Education/Training Program; Visit Provider Student in an Organized Health Care Education/Training Program
DX: M06.9 Rheumatoid arthritis, unspecified (principal)
CPT/HCPCS: 73110; 73130; 73630

== ENCOUNTER 2022-12-14 09:50 | Outpatient (AMB) | payer MEDICAID, SELFPAY ==
[2022-12-14 09:55] VITALS: BP 124/72; PULSE 73; TEMP 36.7; O2SAT 100; BMI 37.7
--- NOTE | 2022-12-14 09:55 | MHC.OFFVIS ---
Intake Vital Signs 12/14/22 09:55 Height 5 ft 4 in Weight 219 lb 12.814 oz BMI 37.7 BP 124/72 Blood Pressure Location Rt brachial Position Sitting Pulse 73 Pulse Source Pulse Oximeter Temp 98.0 F Temp Source Skin Pulse Oximetry (%) 100 Intake Visit Reasons: RA Intake Note: Pt seen today for follow up and test results. States hip, knee, hands , feet are worse now the weather is changing. PCP prescribed new inhalers and new mud but not started because it can interact with gabapentin. S/P dental work prescribed ibuprofen 800mg takes edge off but not the pain. Patent Legal Assistant Required: No Accompanied by: Self / Same As Patient Allergies prednisone Adverse Reaction (Unknown, Verified 12/14/22 10:03) Hallucinations Medication List - Last Reconciled 12/14/22 by Kasandra Jaramillo MD amlodipine 10 mg PO DAILY carvedilol 25 mg PO DAILY gabapentin 800 mg PO BID 30 days hydrochlorothiazide 25 mg PO DAILY lisinopril 40 mg PO DAILY prednisone Take 3 tabs by mouth once daily for 1 week then 2 tabs daily for 2 weeks then stop sertraline (Zoloft) 25 mg PO DAILY HPI HPI Comments History of Present Illness Details Patient returns for follow-up after completion of her diagnostic workup. She states that she has been having dental infections over the last 1-2 months. She went to her dentist multiple times and had a total of 10 teeth extracted. She is currently on amoxicillin. She was also prescribed ibuprofen 800 mg 3 times a day for her jaw swelling, she states that the ibuprofen helps with the stiffness in her hands. She continues to complain of pain in her toes. Initial history: This is a 42-year-old female with degenerative spinal arthritis s/p multiple procedures by Pain Management who was referred for evaluation of an inflammatory arthritis. Patient stated that since 2019 she has been having intermittent pain and swelling in between her knuckles bilaterally. This happens once or twice a week associated with morning stiffness lasting 4-5 hours. Also gets left knee swelling worse with walking. She has pain in her toes as well. She had multiple procedures by Pain Management and according to patient nothing was significantly helpful. She also has pain on the outside of both hips. She is unaware of any family history of autoimmune rheumatic disease as she is adopted. Patient had 4 pregnancies, 3 miscarriages and 1 live . No known history of DVT/PE [facility] Medical History Diabetes GERD (gastroesophageal reflux disease) Depression Migraine Back pain Snores Hx of myocardial infarction Anxiety History of COVID-19 HTN (hypertension) Raynaud's disease without gangrene delivery delivered Surgical History History of reversal of tubal ligation Hx of section History of back surgery Lipoma of arm Carpal tunnel syndrome Family History Other Adopted person Medical history unknown Social History Are you a primary pharmacy care coordinator to a significant other at home: No Do you presently have visiting nurse or other home services: No Alcohol intake: current Alcohol intake frequency: does not drink Patient Tobacco Use Status: Current someday Tobacco user Tobacco use type: Cigarette Cigarettes Per Day: 3 Years Smoked: 27 Substance Use Type: Marijuana Current occupational status: other 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 Review of Systems Musc Reports back pain, Reports arthralgias, Reports limited range of motion and Reports stiffness Skin/Breast Denies rash Physical Exam Vital Signs: Last Vital Signs Temp 98.0 F 12/14/22 09:55 Pulse 73 12/14/22 09:55 BP 124/72 12/14/22 09:55 Pulse Ox 100 12/14/22 09:55 BMI result Body Mass Index 37.7 Const General: cooperative, healthy appearing and comfortable Nutritional Appearance: obese morbidly obese Orientation/consciousness: patient oriented x3 Limitations: no limitations HEENT Head: Yes normocephalic and Yes atraumatic Mouth: moist mucous membranes Resp Effort & Inspection: normal respiratory effort and able to speak in complete sentences Cardio Rate: regular rate Rhythm: regular rhythm Neuro General: patient oriented x3 Extrem Other: No wrist swelling or tenderness or pain with flexion extension bilaterally Mildly positive MCP squeeze test on the left Negative MCP squeeze test on the right Mildly swollen right 3rd MCP, nontender Multiple tender DIPs is bilaterally Few early Heberden's nodes Normal nailfold capillaroscopy Normal range of motion of both elbows and shoulders without pain Left trochanteric bursa area tenderness with negative Latasha's test No knee swelling or tenderness or pain with full flexion and full extension No ankle swelling or tenderness Bilateral 3rd through 5th MTP tenderness and positive MTP squeeze test Assessment & Plan Assessment & Plan (1) Polyarthralgia: Code(s): M25.50 - Pain in unspecified joint Plan: This is a 42-year-old female with degenerative disc disease of her spine s/p multiple procedures by Pain Management who is referred for evaluation of inflammatory arthritis. Upon evaluation patient has multiple tender MTPs without significant swelling. Labs showed negative serologies but showed high inflammatory markers which are nonspecific, can be seen inflammatory arthritis, can also be related to her dental infections. Will start prednisone therapeutic trial. Patient has history of hallucination with prednisone in the past. Will prescribe a lower dose prednisone 15 mg for 1 week then 10 mg for 2 weeks then reassess in 3 weeks. Advised patient to call the clinic if she develops any hallucinations or any mood changes (2) Raynaud's disease without gangrene: Code(s): I73.00 - Raynaud's syndrome without gangrene Plan: Comprehensive serology for scleroderma and lupus is negative. He nailfold capillaroscopy is normal Likely primary Raynaud's Plan I spent 26 minutes reviewing patient's chart, evaluating patient, placing orders, counseling patient and documenting in the chart Medications: New prednisone Take 3 tabs by mouth once daily for 1 week then 2 tabs daily for 2 weeks then stop 49 tabs 0RF Coding Level of Care Code Est Pt Level 4 (52017) Diagnoses Polyarthralgia M25.50 Raynaud's disease without gangrene I73.00
== END 2022-12-14 10:24 | disposition home or self-care (01) ==
PROVIDERS: PCP Student in an Organized Health Care Education/Training Program; Visit Provider Student in an Organized Health Care Education/Training Program
DX: M25.50 Pain in unspecified joint (principal); I73.00 Raynaud's syndrome without gangrene
CPT/HCPCS: 99214

== ENCOUNTER → 2022-12-14 09:50 | Outpatient (BNVA) | payer MEDICAID, SELFPAY | PROVIDERS: PCP Student in an Organized Health Care Education/Training Program; Visit Provider Student in an Organized Health Care Education/Training Program | DX: M25.50 Pain in unspecified joint (principal); I73.00 Raynaud's syndrome without gangrene | CPT/HCPCS: 99212 ==

== ENCOUNTER 2022-12-18 14:22 | Outpatient (AMB) | payer MEDICAID, SELFPAY ==
--- NOTE | 2022-12-18 14:45 | MHC.OFFVIS ---
Intake Vital Signs 12/18/22 14:46 Height 5 ft 4 in Weight 219 lb BMI 37.6 BP 154/80 H Blood Pressure Location Rt brachial Position Sitting Respiration 16 Pulse 73 Pulse Source Pulse Oximeter Pulse Oximetry (%) 100 Oxygen Delivery Method Room Air Intake Visit Reasons: SPRINT 60 DAY LEAD REMOVAL Intake Note: Patient comes in for sprint device removal. Patient stated that on Sunday her bra got stuck with the wire and lead was pulled partially out, she experience some pain. Site was clean, no redness/drainage/swelling at site. Site cleaned with alcohol prep pad, and new dsd/tegaderm applied. Lead gave a bit of resistance, nurse Angelita messaged the area while I pulled the lead and it was intact as it was removed and lead did not fracture. Allergies prednisone Adverse Reaction (Unknown, Verified 12/18/22 14:51) Hallucinations HPI HPI Comments History of Present Illness Details Scarlet is here after the completion of the 60 days on Sprint device. She reports significant reduction in her pain level from 10/10 to 4/10 with intermittent pain exacerbation to the level of 7/10 but never to 10/10. I explained to her that we can repeat the procedure after 6 months of original insertion.? Dressing was changed today, the electrode was removed. The skin is intact. Sterile dressing applied. Prior diagnostic T11-T12 L1 bilateral medial branch block resulted in complete elimination of the pain for the 1st 5 hours after the procedure.? The pain relieve lasted more than a week after the injection. Obviously we have found her pain generator.? Those are thoracic facet joints.? I offered her steroid injections versus PNS Sprint T12 right following T12 left 1 week after.? She also reports that she has significant hand stiffness in the morning.? His stiffness is lasting 3-4 hours.? This is justified to consider her a rheumatoid arthritis patient.? She is 42 years old and she is primary age for the onset of rheumatoid arthritis.? She was referred to order builder and she was placed on steroids. It is significant dose of steroids with weekly taper. H/o excellent results of stim wave bilateral sacroiliac joint stimulation stim wave/curonics.? she reports excellent pain trial with the device.? She reports excellent pain relief after the implant.? She reports all the pain in the lower back in the projection of the sacroiliac joints is all but gone.? Recently started to experience pain in the thoracic spine as well as pain in the knees bilateral.? Palpation of the thoracic spine in the projection of the approximately T6-T7 T8 spinous processes as well as paraspinal regions is very tender.? She reports limited ability to walk because of this pain.? She reports severe pain with range of motion.? She requests me to perform some injections to help her pain.? I will schedule her for T6-T7 T8 bilateral diagnostic medial branch block.? Possibility exist of treating this pain with sprint PNS.? Alternatively RFA comes to my mind however radiofrequency ablation of the thoracic medial branches considered experimental by most insurances.? The evidence in literature is scant on this procedure as well.? Therapeutic medial branches injections once diagnostic procedures established could be performed if it is desired by the patient.? It has been 6 months since implant of stim wave I do not think there are limitations anymore on steroid medications on this patient.? [facility] Medical History Diabetes GERD (gastroesophageal reflux disease) Depression Migraine Back pain Snores Hx of myocardial infarction Anxiety History of COVID-19 HTN (hypertension) Raynaud's disease without gangrene delivery delivered Surgical History History of reversal of tubal ligation Hx of section History of back surgery Lipoma of arm Carpal tunnel syndrome Family History Other Adopted person Medical history unknown Social History Are you a primary medicare nurse to a significant other at home: No Do you presently have visiting nurse or other home services: No Alcohol intake: current Alcohol intake frequency: does not drink Patient Tobacco Use Status: Current someday Tobacco user Tobacco use type: Cigarette Cigarettes Per Day: 3 Years Smoked: 27 Substance Use Type: Marijuana Current occupational status: other 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 Review of Systems Const All systems reviewed & are unremarkable except as noted in HPI and below Physical Exam Vital Signs: Last Vital Signs Pulse 73 12/18/22 14:46 Resp 16 12/18/22 14:46 BP 154/80 H 12/18/22 14:46 Pulse Ox 100 12/18/22 14:46 Oxygen Delivery Method Room Air 12/18/22 14:46 BMI result Body Mass Index 37.6 Const General: cooperative and no acute distress Orientation/consciousness: patient oriented x3 Resp Effort & Inspection: normal respiratory effort, able to speak in complete sentences and no audible wheezes Back/Spine/Pelvis Other: Tenderness on palpation in paraspinal spinal region of the thoracic spine with most tender point at T7. Paraspinal regions are more tender that midline spinal. Chon test Gaenslen test pelvic compression test pelvic destruction test Stinchfield test all positive bilaterally. SLR is negative. Bilateral normal strength of bilateral lower extremities. Valsalva is negative. Pelvic organ function is intact. Neuro General: patient oriented x3 Assessment & Plan Assessment & Plan (1) Sacroiliac joint pain: Code(s): M53.3 - Sacrococcygeal disorders, not elsewhere classified (2) Spondylosis, thoracic, without myelopathy: Code(s): M47.814 - Spondylosis without myelopathy or radiculopathy, thoracic region (3) Dorsalgia of thoracic region: Code(s): M54.6 - Pain in thoracic spine (4) Rheumatoid arthritis: Code(s): M06.9 - Rheumatoid arthritis, unspecified Plan H/o good result of PNS stimwave for SI joints pain. H/o good results of Sprint PNS T12 after successful lower thoracic uper lumbar MBB. Now with the Sprint PNS reported overall good results may consider repeat of the procedures in the future although reports the pain decrease from 10/10 to 4/10 with intermittent exacerbation to 7/10. She was explained that noted earlier than 6 months from original insertion we can repeat the procedure. History of hip steroid injections with good results. However now she is on oral steroids and that would require 1 month from the last dose of the oral steroid pills to perform the injection. Diagnosed with RA by Rheumatology. On weekly steroid taper at this time. No new appointment at this time she will give us a call when it is as needed. Coding Level of Care Code Est Pt Level 4 (49939) Diagnoses Sacroiliac joint pain M53.3 Spondylosis, thoracic, without myelopathy M47.814 Dorsalgia of thoracic region M54.6 Rheumatoid arthritis M06.9
[2022-12-18 14:46] VITALS: BP 154/80; PULSE 73; RESP 16; O2SAT 100; BMI 37.6
== END 2022-12-18 15:00 | disposition home or self-care (01) ==
PROVIDERS: PCP Student in an Organized Health Care Education/Training Program; Visit Provider Anesthesiology
DX: M53.3 Sacrococcygeal disorders, not elsewhere classified (principal); M47.814 Spondylosis without myelopathy or radiculopathy, thoracic region; M54.6 Pain in thoracic spine; M06.9 Rheumatoid arthritis, unspecified
CPT/HCPCS: 99213

== ENCOUNTER → 2022-12-18 14:22 | Outpatient (BNVA) | payer MEDICAID, SELFPAY | PROVIDERS: PCP Student in an Organized Health Care Education/Training Program; Visit Provider Anesthesiology | DX: M53.3 Sacrococcygeal disorders, not elsewhere classified (principal); M47.814 Spondylosis without myelopathy or radiculopathy, thoracic region; M54.6 Pain in thoracic spine; M06.9 Rheumatoid arthritis, unspecified | CPT/HCPCS: 99212 ==

== ENCOUNTER 2023-01-05 11:34 | Outpatient (AMB) | payer MEDICAID, SELFPAY ==
[2023-01-05 11:43] VITALS: BP 160/103; PULSE 83; RESP 18; TEMP 36.3; O2SAT 99; BMI 37.6
--- NOTE | 2023-01-05 11:43 | MHC.OFFVIS ---
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 Care Required: No Accompanied by: Self / Same As Patient Allergies prednisone Adverse Reaction (Unknown, Verified 01/05/23 11:46) Hallucinations Medication List - Last Reconciled 01/05/23 by Viviana Palma RN albuterol 90 mcg/actuation mcg inhalation amlodipine 10 mg PO DAILY carvedilol 25 mg PO DAILY celecoxib 50 mg PO BID fluticasone propionate 44 mcg/actuation (Flovent HFA) 1 puff inhalation BID gabapentin 800 mg PO BID 30 days hydrochlorothiazide 25 mg PO DAILY lisinopril 40 mg PO DAILY sertraline (Zoloft) 25 mg PO DAILY HPI HPI Comments History of Present Illness Details Patient returns for follow-up after completion of prednisone taper. She states that she felt at least 60% improvement in the stiffness of the hands. She did not feel any improvement in her feet. She states that about a week ago she had 1 and half day history of abrupt onset of left facial swelling. She applied hot and cold compresses with improvement Initial history: This is a 42-year-old female with degenerative spinal arthritis s/p multiple procedures by Pain Management who was referred for evaluation of an inflammatory arthritis. Patient stated that since 2019 she has been having intermittent pain and swelling in between her knuckles bilaterally. This happens once or twice a week associated with morning stiffness lasting 4-5 hours. Also gets left knee swelling worse with walking. She has pain in her toes as well. She had multiple procedures by Pain Management and according to patient nothing was significantly helpful. She also has pain on the outside of both hips. She is unaware of any family history of autoimmune rheumatic disease as she is adopted. Patient had 4 pregnancies, 3 miscarriages and 1 live . No known history of DVT/PE [facility] Medical History Diabetes GERD (gastroesophageal reflux disease) Depression Migraine Back pain Snores Hx of myocardial infarction Anxiety History of COVID-19 HTN (hypertension) Raynaud's disease without gangrene delivery delivered Surgical History History of reversal of tubal ligation Hx of section History of back surgery Lipoma of arm Carpal tunnel syndrome Family History Other Adopted person Medical history unknown Social History Are you a primary wound care center consultant to a significant other at home: No Do you presently have visiting nurse or other home services: No Alcohol intake: current Alcohol intake frequency: does not drink Patient Tobacco Use Status: Current someday Tobacco user Tobacco use type: Cigarette Cigarettes Per Day: 3 Years Smoked: 27 Substance Use Type: Marijuana Current occupational status: other 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 Review of Systems [employer] Reports back pain, Reports arthralgias, Reports limited range of motion and Reports stiffness Skin/Breast Denies rash Physical Exam Vital Signs: Last Vital Signs Temp 97.3 F 01/05/23 11:43 Pulse 83 01/05/23 11:43 Resp 18 01/05/23 11:43 BP 160/103 H 01/05/23 11:43 Pulse Ox 99 01/05/23 11:43 Oxygen Delivery Method Room Air 01/05/23 11:43 BMI result Body Mass Index 37.6 Const General: cooperative, healthy appearing and comfortable Nutritional Appearance: obese morbidly obese Orientation/consciousness: patient oriented x3 Limitations: no limitations HEENT Head: Yes normocephalic and Yes atraumatic Resp Effort & Inspection: normal respiratory effort and able to speak in complete sentences Cardio Rate: regular rate Rhythm: regular rhythm Neuro General: patient oriented x3 Extrem Other: No wrist swelling or tenderness or pain with flexion extension bilaterally Mildly positive MCP squeeze test bilaterally Left 4th and 5th MCP tenderness without swelling Few early Heberden's nodes Normal nailfold capillaroscopy Normal range of motion of both elbows and shoulders without pain Bilateral 4th and 5th MTP tenderness and positive MTP squeeze test Assessment & Plan Assessment & Plan (1) Polyarthralgia: Code(s): M25.50 - Pain in unspecified joint Plan: This is a 42-year-old female with degenerative disc disease of her spine s/p multiple procedures by Pain Management who is referred for evaluation of inflammatory arthritis. Upon evaluation patient has multiple tender MTPs without significant swelling. Labs showed negative serologies but showed high inflammatory markers which are nonspecific, can be seen inflammatory arthritis, can also be related to her dental infections. Patient had at least 60% improvement to prednisone therapeutic trial. Clinical picture at this point likely consistent with seronegative arthritis. Will need to start DMARDs. Discussed risks and benefits of methotrexate. Patient agreed to proceed. Start methotrexate 15 mg once weekly for 2 weeks then 20 mg once weekly plus folic acid 1 mg daily Labs before next visit in 2 months (2) Raynaud's disease without gangrene: Code(s): I73.00 - Raynaud's syndrome without gangrene Plan: Comprehensive serology for scleroderma and lupus is negative. 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 Panel 2 Months Z79.631 - care home (current) use of antimetabolite agent C Reactive Protein 2 Months Z79.631 - local intermodal truck driver (current) use of antimetabolite agent Medications: New methotrexate sodium Take 6 tabs by mouth once weekly for 2 weeks then 8 tabs once weekly 64 tabs 0RF folic acid 1 mg PO DAILY 90 tabs 1RF Coding Level of Care Code Est Pt Level 4 (80792) Diagnoses Polyarthralgia M25.50 Raynaud's disease without gangrene I73.00 care home methotrexate user Z79.631
== END 2023-01-05 12:13 | disposition home or self-care (01) ==
PROVIDERS: PCP Student in an Organized Health Care Education/Training Program; Visit Provider Student in an Organized Health Care Education/Training Program
DX: M25.50 Pain in unspecified joint (principal); I73.00 Raynaud's syndrome without gangrene; Z79.631 Long term (current) use of antimetabolite agent
CPT/HCPCS: 99214

== ENCOUNTER → 2023-01-05 11:34 | Outpatient (BNVA) | payer MEDICAID, SELFPAY | PROVIDERS: PCP Student in an Organized Health Care Education/Training Program; Visit Provider Student in an Organized Health Care Education/Training Program | DX: M25.50 Pain in unspecified joint (principal); I73.00 Raynaud's syndrome without gangrene; Z79.631 Long term (current) use of antimetabolite agent | CPT/HCPCS: 99212 ==

== ENCOUNTER 2023-03-16 10:44 | Outpatient (REF) | payer MEDICAID, SELFPAY ==
[2023-03-16 10:57] LABS: MANUAL DIFF FLAG NO
[2023-03-16 11:16] LABS: Basophils Percent Auto 0.6 % (0-2); Eosinophils Absolute Auto 0.1 X10*3/uL (0.0-0.4); Eosinophils Percent Auto 2.4 % (0-4); Hematocrit 34.9 % (37.0-47.0); Hemoglobin 11.5 g/dl (12.0-16.0); Imm Gran Abs Auto 0.01 X10*3/uL (0.00-0.03); Imm Gran Pct Auto 0.2 % (0.0-0.4); Lymphocytes Absolute Auto 1.7 X10*3/uL (1.2-4.9); Lymphocytes Percent Auto 31.3 % (20-40); Mean Corpuscular Hemoglobin 27.9 pg (27.0-33.0); Mean Corpuscular Volume 84.7 fL (80.0-98.0); Mean Platelet Volume 10.1 fL (9.4-12.3); Monocytes Absolute Auto 0.2 X10*3/uL (0.1-1.2); Monocytes Percent Auto 3.3 % (2-11); Neutrophils Absolute Auto 3.4 x10*3/uL (2.0-8.3); Neutrophils Percent Auto 62.2 % (45-73); Platelet Count 337 X10*3/uL (160-400); Red Blood Count 4.12 X10*6/uL (4.20-5.50); Red Cell Distribution Width 19.4 % (11.0-16.0); White Blood Count 5.4 X10*3/uL (4.8-10.8)
[2023-03-16 11:52] LABS: Alanine Aminotransferase 50 U/L (0-31); Albumin Level 3.9 g/dL (3.5-5.0); Alkaline Phosphatase 122 U/L (39-117); Anion Gap 14 (12-20); Aspartate Amino Transferase 45 U/L (5-31); Bilirubin Total 0.3 mg/dL (0.0-1.0); Blood Urea Nitrogen 15 mg/dL (9-16); C Reactive Protein 5.38 mg/dL (< or = 0.50); Carbon Dioxide 22 mmol/L (22-29); Chloride 107 mmol/L (96-108); Estimated Glomerular Filt Rate > 60; Glucose Random 88 mg/dL (60-115); Potassium 4.1 mmol/L (3.3-5.1); Sodium 139 mmol/L (135-145); Total Protein 8.2 g/dL (6.5-8.0)
[2023-03-16 12:00] LABS: Erythrocyte Sedimentation Rate 57 MM/HR (0-20)
== END 2023-03-16 10:45 | disposition home or self-care (01) ==
LOC: HO.LAB 10:44
PROVIDERS: PCP Student in an Organized Health Care Education/Training Program; Visit Provider Student in an Organized Health Care Education/Training Program
DX: Z79.631 Long term (current) use of antimetabolite agent (principal)
CPT/HCPCS: 36415; 80053; 85025; 85652; 86140

== ENCOUNTER 2023-04-04 08:11 | Outpatient (AMB) | payer MEDICAID, SELFPAY ==
--- NOTE | 2023-04-04 08:18 | A.OFFVIS_ITS ---
Intake Vital Signs 04/04/23 08:19 Height 5 ft 4 in Weight 221 lb 5.506 oz BMI 38.0 BP 152/80 H Blood Pressure Location Lt brachial Position Sitting Pulse 66 Pulse Source Pulse Oximeter Temp 98.1 F Temp Source Skin Pulse Oximetry (%) 98 Intake Visit Reasons: RA Intake Note: Pt last seen 01/05/23 presents today for follow up and test results. Reports using cannabis for pain mgmt but it seems to not be working. [place] great with prednisone. 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 Accompanied by: Self / Same As Patient Allergies prednisone Adverse Reaction (Unknown, Verified 04/04/23 08:24) Hallucinations Medication List - Last Reconciled 04/04/23 by Kasandra Jaramillo MD albuterol 90 mcg/actuation mcg inhalation amlodipine 10 mg PO DAILY carvedilol 25 mg PO DAILY celecoxib 50 mg PO BID fluticasone propionate 44 mcg/actuation (Flovent HFA) 1 puff inhalation BID gabapentin 800 mg PO BID 30 days hydrochlorothiazide 25 mg PO DAILY lisinopril 40 mg PO DAILY prednisone Take 1-2 tabs once daily as needed for joint pain sertraline (Zoloft) 25 mg PO DAILY HPI HPI Comments History of Present Illness Details 43-year-old female with new onset serone gative arthritis returns for follow-up. She took methotrexate as prescribed, for about 2 months, she did not feel any side effects related to it or any improvement. I asked patient to discontinue it due to transaminitis. She continues to have diffuse pain, especially her lower back she gets pain in her hands and feet. States that prednisone significantly helped the pain in her hands and feet. She mentions abrupt onset of severe pain in 1 joints such as her left thumb, left pinky or her foot that lasts seconds then completely resolves. She stated that she had a flu-like episode a few weeks ago that lasted about a week and self-resolved. Today her main complaint is pain on the outer aspect of the left foot and left pinky finger. Initial history: This is a 42-year-old female with degenerative spinal arthritis s/p multiple procedures by Pain Management who was referred for evaluation of an inflammatory arthritis. Patient stated that since 2018 she has been having intermittent pain and swelling in between her knuckles bilaterally. This happens once or twice a week associated with morning stiffness lasting 4-5 hours. Also gets left knee swelling worse with walking. She has pain in her toes as well. She had multiple procedures by Pain Management and according to patient nothing was significantly helpful. She also has pain on the outside of both hips. She is unaware of any family history of autoimmune rheumatic disease as she is adopted. Patient had 4 pregnancies, 3 miscarriages and 1 live . No known history of DVT/PE [facility] Medical History (Updated 04/04/23 @ 08:53 by Kasandra Jaramillo MD) Diabetes GERD (gastroesophageal reflux disease) Depression Migraine Back pain Snores Hx of myocardial infarction Anxiety History of COVID-19 HTN (hypertension) Raynaud's disease without gangrene delivery delivered Surgical History History of reversal of tubal ligation Hx of section History of back surgery Lipoma of arm Carpal tunnel syndrome Family History Other Adopted person Medical history unknown Social History Are you a primary director of health care marketing to a significant other at home: No Do you presently have visiting nurse or other home services: No Alcohol intake: current Alcohol intake frequency: does not drink Patient Tobacco Use Status: Current someday Tobacco user Tobacco use type: Cigarette Cigarettes Per Day: 3 Years Smoked: 27 Substance Use Type: Marijuana Current occupational status: other 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 [facility] Reports back pain, Reports arthralgias, Reports limited range of motion and Reports stiffness Skin/Breast Denies rash Physical Exam Vital Signs: Last Vital Signs Temp 98.1 F 04/04/23 08:19 Pulse 66 04/04/23 08:19 BP 152/80 H 04/04/23 08:19 Pulse Ox 98 04/04/23 08:19 BMI result Body Mass Index 38.0 Const General: cooperative, healthy appearing and comfortable Nutritional Appearance: obese morbidly obese Orientation/consciousness: patient oriented x3 Limitations: no limitations HEENT Head: Yes normocephalic and Yes atraumatic Resp Effort & Inspection: normal respiratory effort and able to speak in complete sentences Cardio Rate: regular rate Rhythm: regular rhythm Neuro General: patient oriented x3 Extrem Other: No wrist swelling or tenderness or pain with flexion extension bilaterally Mildly positive MCP squeeze test bilaterally Left 4th and 5th MCP tenderness without swelling, left 5th PIP and DIP tenderness Left 5th extensor tendon tenderness right 4th flexor tendon tenderness Few early Heberden's nodes Normal nailfold capillaroscopy Normal range of motion of both elbows and shoulders without pain Left fifth MTP tenderness and left dorsal foot tenderness had significant swelling Assessment & Plan Assessment & Plan (1) Raynaud's disease without gangrene: Code(s): I73.00 - Raynaud's syndrome without gangrene Plan: Comprehensive serology for scleroderma and lupus is negative. He nailfold capillaroscopy is normal Likely primary Raynaud's (2) Seronegative arthritis: Code(s): M13.80 - Other specified arthritis, unspecified site Plan: This is a 43-year-old female with degenerative disc disease of her spine s/p multiple procedures by Pain Management who is referred for evaluation of inflammatory arthritis.? Upon evaluation patient has multiple tender MTPs without significant swelling.? Labs showed negative serologies but showed high inflammatory markers which are nonspecific, can be seen inflammatory arthritis, can also be related to her dental infections.? Patient had at least 60% improvement in pains in hands and feet to prednisone therapeutic trial.? Patient took methotrexate for approximately 2 months and developed transaminitis. Will need to switch DMARDs. Discussed risks and benefits of TNF inhibitors. Patient agreed to proceed. Will start prior authorization for Enbrel Patient needs a T spot before Enbrel can be started. I tried calling patient to let her know but there was no answer. I will not prescribe the Enbrel until they T spot test is completed and negative Repeat labs to monitor for transaminitis Plan I spent 26 minutes reviewing patient's chart, evaluating patient, ordering diagnostic workup, counseling patient and documenting in the chart Orders: Orders Complete Blood Count Auto Diff 1 Month M70.62 - Trochanteric bursitis, left hip, R74.01 - Elevation of levels of liver transaminase levels Erythrocyte Sedimentation Rate 1 Month M70.62 - Trochanteric bursitis, left hip, R74.01 - Elevation of levels of liver transaminase levels Comprehensive Met. Panel Today M13.80 - Other specified arthritis, unspecified site, R74.01 - Elevation of levels of liver transaminase levels Erythrocyte Sedimentation Rate Today M13.80 - Other specified arthritis, unspecified site, R74.01 - Elevation of levels of liver transaminase levels Comprehensive Met. Panel 1 Month M70.62 - Trochanteric bursitis, left hip, R74.01 - Elevation of levels of liver transaminase levels C Reactive Protein 1 Month M70.62 - Trochanteric bursitis, left hip, R74.01 - Elevation of levels of liver transaminase levels T Spot TB Today Z11.7 - Encounter for testing for latent tuberculosis infection Complete Blood Count Auto Diff Today M13.80 - Other specified arthritis, unspecified site, R74.01 - Elevation of levels of liver transaminase levels C Reactive Protein Today M13.80 - Other specified arthritis, unspecified site, R74.01 - Elevation of levels of liver transaminase levels Coding Level of Care Code Est Pt Level 4 (73203) Diagnoses Raynaud's disease without gangrene I73.00 Seronegative arthritis M13.80
[2023-04-04 08:19] VITALS: BP 152/80; PULSE 66; TEMP 36.7; O2SAT 98; BMI 38.0
== END 2023-04-04 09:09 | disposition home or self-care (01) ==
PROVIDERS: PCP Student in an Organized Health Care Education/Training Program; Referring Provider Student in an Organized Health Care Education/Training Program; Visit Provider Student in an Organized Health Care Education/Training Program
DX: I73.00 Raynaud's syndrome without gangrene (principal); M13.80 Other specified arthritis, unspecified site
CPT/HCPCS: 99214

== ENCOUNTER → 2023-04-04 08:11 | Outpatient (BNVA) | payer MEDICAID, SELFPAY | PROVIDERS: PCP Student in an Organized Health Care Education/Training Program; Visit Provider Student in an Organized Health Care Education/Training Program | DX: M13.80 Other specified arthritis, unspecified site (principal); I73.00 Raynaud's syndrome without gangrene | CPT/HCPCS: 99212 ==

== ENCOUNTER 2023-04-11 08:47 | Outpatient (REF) | payer MEDICAID, SELFPAY ==
[2023-04-11 09:16] LABS: MANUAL DIFF FLAG NO
[2023-04-11 09:46] LABS: Basophils Percent Auto 0.4 % (0-2); Eosinophils Absolute Auto 0.1 X10*3/uL (0.0-0.4); Eosinophils Percent Auto 1.3 % (0-4); Hematocrit 37.3 % (37.0-47.0); Hemoglobin 12.3 g/dl (12.0-16.0); Imm Gran Abs Auto 0.02 X10*3/uL (0.00-0.03); Imm Gran Pct Auto 0.2 % (0.0-0.4); Lymphocytes Absolute Auto 2.1 X10*3/uL (1.2-4.9); Lymphocytes Percent Auto 25.5 % (20-40); Mean Corpuscular Hemoglobin 27.6 pg (27.0-33.0); Mean Corpuscular Volume 83.8 fL (80.0-98.0); Mean Platelet Volume 10.4 fL (9.4-12.3); Monocytes Absolute Auto 0.7 X10*3/uL (0.1-1.2); Monocytes Percent Auto 8.9 % (2-11); Neutrophils Absolute Auto 5.2 x10*3/uL (2.0-8.3); Neutrophils Percent Auto 63.7 % (45-73); Platelet Count 290 X10*3/uL (160-400); Red Blood Count 4.45 X10*6/uL (4.20-5.50); Red Cell Distribution Width 17.9 % (11.0-16.0); White Blood Count 8.2 X10*3/uL (4.8-10.8)
[2023-04-11 10:25] LABS: Erythrocyte Sedimentation Rate 36 MM/HR (0-20)
[2023-04-14 12:44] LABS: TS Negative Control Passed; TS Panel A 0; TS Panel B 0; TS Positive Control Passed; TSpotTB Negative (Negative)
== END 2023-04-11 08:48 | disposition home or self-care (01) ==
LOC: HO.LAB 08:47
PROVIDERS: PCP Student in an Organized Health Care Education/Training Program; Visit Provider Student in an Organized Health Care Education/Training Program
DX: M13.80 Other specified arthritis, unspecified site (principal); R74.01 Elevation of levels of liver transaminase levels; Z11.7 Encounter for testing for latent tuberculosis infection
CPT/HCPCS: 36415; 80053; 85025; 85652; 86140; 86481

== ENCOUNTER 2023-10-11 07:56 | Outpatient (REF) | payer MEDICAID, SELFPAY ==
[2023-10-11 08:16] LABS: MANUAL DIFF FLAG NO
[2023-10-11 09:00] LABS: Basophils Absolute Auto 0.1 X10*3/uL (0.0-0.2); Basophils Percent Auto 0.7 % (0-2); Eosinophils Absolute Auto 0.2 X10*3/uL (0.0-0.4); Hematocrit 39.2 % (37.0-47.0); Hemoglobin 13.4 g/dl (12.0-16.0); Imm Gran Abs Auto 0.02 X10*3/uL (0.00-0.03); Imm Gran Pct Auto 0.3 % (0.0-0.4); Lymphocytes Absolute Auto 2.4 X10*3/uL (1.2-4.9); Lymphocytes Percent Auto 32.4 % (20-40); Mean Corpuscular HGB Conc 34.2 g/dl (31.0-35.0); Mean Corpuscular Hemoglobin 29.9 pg (27.0-33.0); Mean Corpuscular Volume 87.5 fL (80.0-98.0); Mean Platelet Volume 10.3 fL (9.4-12.3); Monocytes Absolute Auto 0.9 X10*3/uL (0.1-1.2); Monocytes Percent Auto 11.5 % (2-11); Neutrophils Percent Auto 53.1 % (45-73); Platelet Count 315 X10*3/uL (160-400); Red Blood Count 4.48 X10*6/uL (4.20-5.50); Red Cell Distribution Width 14.4 % (11.0-16.0); White Blood Count 7.5 X10*3/uL (4.8-10.8)
[2023-10-11 09:33] LABS: Alanine Aminotransferase 18 U/L (0-31); Albumin Level 4.1 g/dL (3.5-5.0); Alkaline Phosphatase 110 U/L (39-117); Anion Gap 13 (12-20); Aspartate Amino Transferase 14 U/L (5-31); Bilirubin Direct 0.1 mg/dL (0.0-0.5); Bilirubin Total 0.3 mg/dL (0.0-1.0); Blood Urea Nitrogen 14 mg/dL (9-16); C Reactive Protein 1.63 mg/dL (< or = 0.50); Calcium 9.3 mg/dL (8.4-10.2); Carbon Dioxide 22 mmol/L (22-29); Chloride 108 mmol/L (96-108); Cholesterol 184 mg/dL (<200); Estimated Glomerular Filt Rate 49; Glucose Random 110 mg/dL (60-115); HDL Cholesterol 36 mg/dL (>40); LDL Cholesterol Calculated 120 mg/dL (<100); Potassium 4.1 mmol/L (3.3-5.1); Sodium 139 mmol/L (135-145); Total Protein 7.9 g/dL (6.5-8.0); Triglycerides 142 mg/dL (<150)
[2023-10-11 09:43] LABS: Erythrocyte Sedimentation Rate 20 MM/HR (0-20)
== END 2023-10-11 07:57 | disposition home or self-care (01) ==
LOC: HO.LAB 07:56
PROVIDERS: Absent Provider Student in an Organized Health Care Education/Training Program; PCP Student in an Organized Health Care Education/Training Program; Visit Provider Student in an Organized Health Care Education/Training Program
DX: I10 Essential (primary) hypertension (principal); R74.01 Elevation of levels of liver transaminase levels; M70.62 Trochanteric bursitis, left hip
CPT/HCPCS: 36415; 80053; 80061; 80076; 82248; 85025; 85652; 86140

== ENCOUNTER 2023-10-15 12:41 | Outpatient (AMB) | payer MEDICAID, SELFPAY ==
--- NOTE | 2023-10-15 12:42 | MHC.OFFVIS ---
Vital Signs 10/15/23 12:47 Height 5 ft 4 in Weight 228 lb 6.382 oz BMI 39.2 BP 122/70 Blood Pressure Location Lt brachial Respiration 16 Pulse 68 Pulse Source Pulse Oximeter Pulse Oximetry (%) 96 Oxygen Delivery Method Room Air Intake Visit Reasons: RA/ discuss lab res/CM Intake Note: Patient presents for RA and discuss lab results. Allergies prednisone Adverse Reaction (Unknown, Verified 10/15/23 12:46) Hallucinations Medication List - Last Reconciled 10/15/23 by Kasandra Jaramillo MD albuterol 90 mcg/actuation mcg inhalation amlodipine 10 mg PO DAILY carvedilol 25 mg PO BID celecoxib 50 mg PO BID Enbrel SureClick (etanercept) 50 mg subcut QWEEK NS fluticasone propionate 44 mcg/actuation (Flovent HFA) 1 puff inhalation BID gabapentin 800 mg PO BID 30 days hydrochlorothiazide 25 mg PO DAILY lisinopril 40 mg PO DAILY prednisone Take 1-2 tabs once daily as needed for joint pain sertraline (Zoloft) 25 mg PO DAILY HPI Comments Details: 43-year-old female with seronegative rheumatoid arthritis returns for follow-up. She has been taking Enbrel for the last 4 months. Has not noticed any side effects. She feels about 35% improvement in her overall pain. Much better hand exercise specialist strength. Reduced stiffness. She continues to have intermittent pains of different joints including hands, feet, wrists but overall better Initial history: This is a 42-year-old female with degenerative spinal arthritis s/p multiple procedures by Pain Management who was referred for evaluation of an inflammatory arthritis. Patient stated that since 2019 she has been having intermittent pain and swelling in between her knuckles bilaterally. This happens once or twice a week associated with morning stiffness lasting 4-5 hours. Also gets left knee swelling worse with walking. She has pain in her toes as well. She had multiple procedures by Pain Management and according to patient nothing was significantly helpful. She also has pain on the outside of both hips. She is unaware of any family history of autoimmune rheumatic disease as she is adopted. Patient had 4 pregnancies, 3 miscarriages and 1 live . No known history of DVT/PE [facility] Medical History Diabetes GERD (gastroesophageal reflux disease) Depression Migraine Back pain Snores Hx of myocardial infarction Anxiety History of COVID-19 HTN (hypertension) Raynaud's disease without gangrene delivery delivered Surgical History History of reversal of tubal ligation Hx of section History of back surgery Lipoma of arm Carpal tunnel syndrome Family History Other Adopted person Medical history unknown Social History Are you a primary director career services to a significant other at home: No Do you presently have visiting nurse or other home services: No Alcohol intake: current Alcohol intake frequency: does not drink Patient Tobacco Use Status: Current someday Tobacco user Tobacco use type: Cigarette Cigarettes Per Day: 3 Years Smoked: 27 Substance Use Type: Marijuana Current occupational status: other Current occupation: B[employer] Female Reproductive History Menstrual Total pregnancies: 4 Number of Living Children: 1 Ab spontaneous: 3 Review of Systems Musc Reports back pain, Reports arthralgias and Reports stiffness Skin/Breast Denies rash Physical Exam Vital Signs: Last Vital Signs Pulse 68 10/15/23 12:47 Resp 16 10/15/23 12:47 BP 122/70 10/15/23 12:47 Pulse Ox 96 10/15/23 12:47 Oxygen Delivery Method Room Air 10/15/23 12:47 BMI result Body Mass Index 39.2 Const General: cooperative, healthy appearing and comfortable Nutritional Appearance: obese morbidly obese Orientation/consciousness: patient oriented x3 Limitations: no limitations HEENT Head: Yes normocephalic and Yes atraumatic Resp Effort & Inspection: normal respiratory effort and able to speak in complete sentences Cardio Rate: regular rate Rhythm: regular rhythm Neuro General: patient oriented x3 Extrem Other: Left 3rd PIP tenderness, no active synovitis otherwise Negative MCP squeeze test bilaterally Normal bilateral hand exercise specialist strength No elbow or shoulder pain with full range of motion Few early Heberden's nodes Normal nailfold capillaroscopy Normal range of motion of both elbows and shoulders without pain Assessment & Plan Assessment & Plan (1) Seronegative arthritis: Comment: -ve RF -ve CCP MTX 01/2023-DC03/2023 ineffective and caused transaminitis Enbrel 06/2023 effective Code(s): M13.80 - Other specified arthritis, unspecified site Category: Medical Plan: This is a 43-year-old female with seronegative rheumatoid arthritis who presents for follow-up. Has been taking Enbrel regularly for the last 4 months with significant improvement. On exam she has much less tender joints. Inflammatory markers trending down Continue Enbrel 50 mg weekly Labs before next visit in 4 months (2) Raynaud's disease without gangrene: Code(s): I73.00 - Raynaud's syndrome without gangrene Category: Medical Plan: Comprehensive serology for scleroderma and lupus is negative. He nailfold capillaroscopy is normal Likely primary Raynaud's (3) High risk medication use: Code(s): Z79.899 - Other nursing home (current) drug therapy Category: Medical Plan: Side effects of Enbrel were discussed with the patient in detail including increased risk of infection, demyelinating disease, reactivation of latent TB, possible increased risk of solid and skin tumors. Patient fully aware. Advised patient to seek medical care [facility] if patient has an infection and advised patient to stop the medication until the infection is resolved. Plan I spent 26 minutes reviewing patient's chart, evaluating patient, ordering diagnostic workup, counseling patient and documenting in the chart Orders: Orders Complete Blood Count Auto Diff 4 Months M13.80 - Other specified arthritis, unspecified site C Reactive Protein 4 Months M13.80 - Other specified arthritis, unspecified site Erythrocyte Sedimentation Rate 4 Months M13.80 - Other specified arthritis, unspecified site Comprehensive Met. Panel 4 Months M13.80 - Other specified arthritis, unspecified site Coding Level of Care Code Est Pt Level 4 (00152) Diagnoses Seronegative arthritis M13.80 Raynaud's disease without gangrene I73.00 High risk medication use Z79.899
[2023-10-15 12:47] VITALS: BP 122/70; PULSE 68; RESP 16; O2SAT 96; BMI 39.2
== END 2023-10-15 13:31 | disposition home or self-care (01) ==
PROVIDERS: PCP Student in an Organized Health Care Education/Training Program; Visit Provider Student in an Organized Health Care Education/Training Program
DX: M13.80 Other specified arthritis, unspecified site (principal); I73.00 Raynaud's syndrome without gangrene; Z79.899 Other long term (current) drug therapy
CPT/HCPCS: 99214

== ENCOUNTER → 2023-10-15 12:41 | Outpatient (BNVA) | payer MEDICAID, SELFPAY | PROVIDERS: PCP Student in an Organized Health Care Education/Training Program; Visit Provider Student in an Organized Health Care Education/Training Program | DX: M13.80 Other specified arthritis, unspecified site (principal); I73.00 Raynaud's syndrome without gangrene; Z79.899 Other long term (current) drug therapy | CPT/HCPCS: 99212 ==

== ENCOUNTER 2023-10-30 11:20 | Outpatient (AMB) | payer MEDICAID, SELFPAY ==
--- NOTE | 2023-10-30 11:23 | A.OFFVIS_ITS ---
Intake Visit Reasons: Access Consultant- LT carpal tunnel Intake Note: Scarlet is a 43 year old right hand dominant female who presents today as a new patient for a evaluation of her left hand pain. Hx of neuropathy in both hands. She mentions she noticed having a bump on the volar aspect of the base of the palm and it shoots pain up to her left index finger. Allergies No Known Allergies Allergy (Verified 10/30/23 11:27) HPI HPI Access Consultant- LT carpal tunnel: Details: Patient is a 43-year-old female who presents for evaluation of left hand numbness and tingling, ongoing for many years. The patient reports that she has previously had a carpal tunnel release on the right, and then she has been extremely satisfied with the results of this procedure. The patient reports that she has noticed worsening numbness and tingling in the median nerve distribution of the left hand for approximately 5-6 months. The patient also reports that she has noticed a bump in the palm of her left hand, particularly under the MCP joints of the 2nd and 3rd digits. Patient reports that her symptoms are intermittent, but daily. No other acute complaints or concerns this time [facility] Medical History Diabetes GERD (gastroesophageal reflux disease) Depression Migraine Back pain Snores Hx of myocardial infarction Anxiety History of COVID-19 HTN (hypertension) Raynaud's disease without gangrene delivery delivered Surgical History History of reversal of tubal ligation Hx of section History of back surgery Lipoma of arm Carpal tunnel syndrome Family History Other Adopted person Medical history unknown Social History (Updated 10/30/23 @ 11:28 by Adelita Corbett) Are you a primary laboratory animal caretaker to a significant other at home: No Do you presently have visiting nurse or other home services: No Alcohol intake: current Alcohol intake frequency: does not drink Patient Tobacco Use Status: Current someday Tobacco user Tobacco use type: Cigarette Cigarettes Per Day: 3 Years Smoked: 27 Substance Use Type: Marijuana Current occupational status: unemployed and other 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 Normal sensation to all other digits in the left hand today. Normal sensation in the tips of all digits of the right hand today. No thenar or intrinsic wasting. Good APB muscle firing and good finger cross. Vascular: Capillary refill brisk. ROM: Patient can make a fist and extend all their digits. Skin: No lacerations or abrasions noted. General: No ecchymosis. No erythema or evidence of infection. Mildly positive Tinel's test in the left Assessment & Plan Assessment & Plan (1) Numbness and tingling in left hand: Code(s): R20.0 - Anesthesia of skin; R20.2 - Paresthesia of skin Category: Medical Plan 1. Left hand numbness and tingling Ongoing for ?many years? Symptoms intermittent, but daily, worse at night At this time, the patient has no current nerve conduction study on file New EMG and nerve conduction study ordered to assess the health of the nerves of the left upper extremity Patient is amenable to this plan Patient will follow-up after nerve conduction study for discussion of results and further treatment options at that time, sooner with any acute concerns Orders: Orders NE nerve conduction velocity Today R20.0 - Anesthesia of skin, R20.2 - Paresthesia of skin NE electromyogram (EMG) Today R20.0 - Anesthesia of skin, R20.2 - Paresthesia of skin Coding Level of Care Code New Pt Level 3 (19454) Diagnoses Numbness and tingling in left hand R20.0; R20.2
== END 2023-10-30 12:42 | disposition home or self-care (01) ==
PROVIDERS: PCP Student in an Organized Health Care Education/Training Program
DX: R20.0 Anesthesia of skin (principal); R20.2 Paresthesia of skin
CPT/HCPCS: 99203

== ENCOUNTER → 2023-10-30 11:20 | Outpatient (BNVA) | payer MEDICAID, SELFPAY | PROVIDERS: PCP Student in an Organized Health Care Education/Training Program | DX: M79.642 Pain in left hand (principal); G62.9 Polyneuropathy, unspecified; R20.0 Anesthesia of skin; R20.2 Paresthesia of skin | CPT/HCPCS: 99212 ==

== ENCOUNTER 2023-11-21 14:47 | Outpatient (REF) | payer MEDICAID, SELFPAY ==
--- NOTE | 2023-11-21 14:49 | EMG_ITS ---
Chief complaint: Left 2nd and 3rd digits numb, left 2nd digit triggering with palpable nodule History of right CTR with good improvement, 5 years ago. Told to have mild left Carpal Tunnel Syndrome 5 years ago. History of RA. Reason for referral: Evaluate for Carpal Tunnel Syndrome Referred by: Kody TAMAYO Procedure done: Left upper extremity NCS/EMG Precautions and/or limitations: None The limb temperature was monitored continuously and remained between 32-36 degrees C during the performance of the NCS. Nerve Conduction Studies Anti Sensory Summary Table ?Stim Site NR Onset (ms) Norm Onset (ms) Peak (ms) Norm Peak (ms) O-P Amp (?V) Norm O-P Amp Site1 Site2 Delta-0 (ms) Dist (cm) Fede (m/s) Norm Fede (m/s) Left Median Anti Sensory (2nd Digit) Wrist ? 2.2 2.7 <3.6 5.4 >10 Wrist 2nd Digit 2.2 14.0 64 Left Ulnar Anti Sensory (5th Digit) Wrist ? 2.0 2.7 <3.7 69.0 >15.0 Wrist 5th Digit 2.0 14.0 70 Motor Summary Table ?Stim Site NR Onset (ms) Norm Onset (ms) O-P Amp (mV) Norm O-P Amp iAmp (mV) Amp (1st) (%) Site1 Site2 Delta-0 (ms) Dist (cm) Fede (m/s) Norm Fede (m/s) Left Median Motor (Abd Poll Brev) Wrist ? 7.6 <3.9 7.2 >4.5 8.9 100.0 Elbow Wrist 4.0 20.5 51 >45 Elbow ? 11.6 6.4 8.1 88.9 Left Ulnar Motor (Abd Dig Minimi) Wrist ? 2.2 <3.0 7.7 >5 9.1 100.0 B Elbow Wrist 3.2 19.0 59 >45 B Elbow ? 5.4 7.2 8.7 93.5 A Elbow B Elbow 1.4 10.0 71 >45 A Elbow ? 6.8 6.9 8.5 89.6 Comparison Summary Table ?Stim Site NR Peak (ms) Norm Peak (ms) P-T Amp (?V) Site1 Site2 Delta-P (ms) Norm Delta (ms) Left Median/Radial Dig I Comparison (Digit 1 - 10cm) Median ? 2.0 <2.9 21.9 Median Radial 0.1 Radial ? 2.1 <2.8 67.7 EMG ?Side Muscle Nerve Root Ins Act Fibs Psw Amp Dur Poly Recrt Int Pat Comment Left 1stDorInt Ulnar C8-T1 Nml Nml Nml Nml Nml 0 Nml Complete Left FlexCarRad Median C6-7 Nml Nml Nml Nml Nml 0 Nml Complete Left Biceps Musculocut C5-6 Nml Nml Nml Nml Nml 0 Nml Complete Left Triceps Radial C6-7-8 Nml Nml Nml Nml Nml 0 Nml Complete Left Deltoid Axillary C5-6 Nml Nml Nml Nml Nml 0 Nml Complete FINDINGS: Left median motor nerve showed prolonged distal latency, normal amplitude and normal conduction velocity. Left median sensory nerve showed small amplitude but normal peak latencies. All other nerves tested were within normal. Concentric needle EMG was performed in selected muscles of the left upper extremity. Study did not reveal signs of electric abnormalities as shown in the table above. IMPRESSION: 1. This is an abnormal study. 2. There is electrodiagnostic evidence for left moderate median neuropathy at the wrist, consistent with carpal tunnel syndrome. 3. There is no electrodiagnostic evidence for ulnar neuropathy, brachial plexopathy, or cervical radiculopathy. Thank you for your kind referral. Melissa Mayes MD, JULIO Board Certified, [place] [employer] and [employer] (ABPMR) Board Certified, [place] Board of Electrodiagnostic Medicine (ABEM) CODIN [id number] MTDD
== END 2023-11-21 14:48 | disposition home or self-care (01) ==
LOC: HO.NEURO 14:47
PROVIDERS: PCP Student in an Organized Health Care Education/Training Program
DX: R20.0 Anesthesia of skin (principal); R20.2 Paresthesia of skin
CPT/HCPCS: 95886; 95909

== ENCOUNTER → 2023-11-21 14:49 | Outpatient (BNV) | payer MEDICAID, SELFPAY | PROVIDERS: PCP Student in an Organized Health Care Education/Training Program; Visit Provider Physical Medicine & Rehabilitation | DX: G56.02 Carpal tunnel syndrome, left upper limb (principal) | CPT/HCPCS: 95886; 95909 ==

== ENCOUNTER 2024-02-14 12:47 | Outpatient (AMB) | payer MEDICAID, SELFPAY ==
--- NOTE | 2024-02-14 12:50 | A.OFFVIS_ITS ---
Vital Signs 02/14/24 12:56 Height 5 ft 4 in Weight 227 lb 11.8 oz BMI 39.1 BP 142/80 H Blood Pressure Location Rt brachial Position Sitting Respiration 16 Pulse 83 Pulse Source Pulse Oximeter Pulse Oximetry (%) 98 Oxygen Delivery Method Room Air Intake Visit Reasons: RA Intake Note: Patient presents for RA. Allergies No Known Allergies Allergy (Verified 02/14/24 12:55) Medication List - Last Reconciled 02/14/24 by Kasandra Jaramillo MD albuterol 90 mcg/actuation mcg inhalation amlodipine 10 mg PO DAILY carvedilol 25 mg PO BID celecoxib 50 mg PO BID Enbrel SureClick (etanercept) 50 mg subcut QWEEK NS fluticasone propionate 44 mcg/actuation (Flovent HFA) 1 puff inhalation BID gabapentin 800 mg PO BID 30 days hydrochlorothiazide 25 mg PO DAILY lisinopril 40 mg PO DAILY prednisone Take 1-2 tabs once daily as needed for joint pain semaglutide (weight loss) (Wegovy) 1 mg subcut QWEEK sertraline (Zoloft) 25 mg PO DAILY HPI Comments Details: 43-year-old female with seronegative rheumatoid arthritis returns for follow-up. On Enbrel 50 mg subcutaneously weekly. She states that she continues to feel about the same. The joint pain in her extremities is much better overall since she started Enbrel. No significant pain or stiffness. She continues to get other pains related to osteoarthritis such as pains in her neck, low back. She is frustrated that the Wegovy did not help her lose much weight. Continues to smoke 2-3 cigarettes a day. Initial history: This is a 42-year-old female with degenerative spinal arthritis s/p multiple procedures by Pain Management who was referred for evaluation of an inflammatory arthritis. Patient stated that since 2019 she has been having intermittent pain and swelling in between her knuckles bilaterally. This happens once or twice a week associated with morning stiffness lasting 4-5 hours. Also gets left knee swelling worse with walking. She has pain in her toes as well. She had multiple procedures by Pain Management and according to patient nothing was significantly helpful. She also has pain on the outside of both hips. She is unaware of any family history of autoimmune rheumatic disease as she is adopted. Patient had 4 pregnancies, 3 miscarriages and 1 live . No known history of DVT/PE [facility] Medical History Diabetes GERD (gastroesophageal reflux disease) Depression Migraine Back pain Snores Hx of myocardial infarction Anxiety History of COVID-19 HTN (hypertension) Raynaud's disease without gangrene delivery delivered Surgical History History of reversal of tubal ligation Hx of section History of back surgery Lipoma of arm Carpal tunnel syndrome Family History Other Adopted person Medical history unknown Social History Are you a primary pharmacy care coordinator to a significant other at home: No Do you presently have visiting nurse or other home services: No Alcohol intake: current Alcohol intake frequency: does not drink Patient Tobacco Use Status: Current someday Tobacco user Tobacco use type: Cigarette Cigarettes Per Day: 3 Years Smoked: 27 Substance Use Type: Marijuana Current occupational status: unemployed and other 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 Review of Systems Musc Reports back pain, Reports arthralgias and Reports stiffness Skin/Breast Denies rash Physical Exam Vital Signs: Last Vital Signs Pulse 83 02/14/24 12:56 Resp 16 02/14/24 12:56 BP 142/80 H 02/14/24 12:56 Pulse Ox 98 02/14/24 12:56 Oxygen Delivery Method Room Air 02/14/24 12:56 BMI result Body Mass Index 39.1 Const General: cooperative, healthy appearing and comfortable Nutritional Appearance: obese morbidly obese Orientation/consciousness: patient oriented x3 Limitations: no limitations HEENT Head: Yes normocephalic and Yes atraumatic Resp Effort & Inspection: normal respiratory effort and able to speak in complete sentences Cardio Rate: regular rate Rhythm: regular rhythm Neuro General: patient oriented x3 Extrem Other: Left 3rd and 4th PIP tenderness, no swelling. No swollen tender joints otherwise both hands and wrists Negative MCP squeeze test bilaterally Normal bilateral hand band manager strength No elbow or shoulder pain with full range of motion Few early Heberden's nodes Normal nailfold capillaroscopy Normal range of motion of both elbows and shoulders without pain Assessment & Plan Assessment & Plan (1) Seronegative arthritis: Comment: -ve RF -ve CCP MTX 01/2023-DC03/2023 ineffective and caused transaminitis Enbrel 06/2023 effective Code(s): M13.80 - Other specified arthritis, unspecified site Category: Medical Plan: This is a 43-year-old female with seronegative rheumatoid arthritis who presents for follow-up. On Enbrel 50 mg subcutaneously once weekly. Doing well overall with no active synovitis on exam. Continue Enbrel 50 mg weekly Labs before next visit in 6 months (2) Raynaud's disease without gangrene: Code(s): I73.00 - Raynaud's syndrome without gangrene Category: Medical Plan: Comprehensive serology for scleroderma and lupus is negative. Her nailfold capillaroscopy is normal Likely primary Raynaud's (3) High risk medication use: Code(s): Z79.899 - Other termite exterminator (current) drug therapy Category: Medical Plan: Side effects of Enbrel were discussed with the patient in detail including increased risk of infection, demyelinating disease, reactivation of latent TB, possible increased risk of solid and skin tumors. Patient fully aware. Advised patient to seek medical care GLORIA if patient has an infection and advised patient to stop the medication until the infection is resolved. Plan I spent 26 minutes reviewing patient's chart, evaluating patient, ordering diagnostic workup, counseling patient and documenting in the chart Orders: Orders Hepatitis A,B,C Profile 6 Months Z11.59 - Encounter for screening for other viral diseases T Spot TB 6 Months Z11.7 - Encounter for testing for latent tuberculosis infection Complete Blood Count Auto Diff 6 Months M13.80 - Other specified arthritis, unspecified site Comprehensive Met. Panel 6 Months M13.80 - Other specified arthritis, unspe cified site C Reactive Protein 6 Months M13.80 - Other specified arthritis, unspecified site Erythrocyte Sedimentation Rate 6 Months M13.80 - Other specified arthritis, unspecified site Medications: Discontinued prednisone Discontinued Reason: Patient no longer taking Take 1-2 tabs once daily as needed for joint pain 30 tabs 0RF Coding Level of Care Code Est Pt Level 4 (44714) Complex EM visit Add On G2211 Diagnoses Seronegative arthritis M13.80 Raynaud's disease without gangrene I73.00 High risk medication use Z79.899
[2024-02-14 12:56] VITALS: BP 142/80; PULSE 83; RESP 16; O2SAT 98; BMI 39.1
== END 2024-02-14 13:14 | disposition home or self-care (01) ==
PROVIDERS: PCP Student in an Organized Health Care Education/Training Program; Visit Provider Student in an Organized Health Care Education/Training Program
DX: M13.80 Other specified arthritis, unspecified site (principal); I73.00 Raynaud's syndrome without gangrene; Z79.899 Other long term (current) drug therapy
CPT/HCPCS: 99214

== ENCOUNTER → 2024-02-14 12:47 | Outpatient (BNVA) | payer MEDICAID, SELFPAY | PROVIDERS: PCP Student in an Organized Health Care Education/Training Program; Visit Provider Student in an Organized Health Care Education/Training Program | DX: M13.80 Other specified arthritis, unspecified site (principal); I73.00 Raynaud's syndrome without gangrene; Z79.899 Other long term (current) drug therapy | CPT/HCPCS: 99212 ==

== ENCOUNTER 2024-03-13 08:24 | Outpatient (AMB) | payer MEDICAID, SELFPAY ==
[2024-03-13 08:30] VITALS: BP 127/82; PULSE 78; RESP 16; O2SAT 99; BMI 39.1
--- NOTE | 2024-03-13 08:30 | A.OFFVIS_ITS ---
Vital Signs 03/13/24 08:30 Height 5 ft 4 in Weight 228 lb BMI 39.1 BP 127/82 Blood Pressure Location Lt brachial Position Sitting Respiration 16 Pulse 78 Pulse Source Pulse Oximeter Pulse Oximetry (%) 99 Oxygen Delivery Method Room Air Intake Visit Reasons: Low Back Pain Radiating to lft Leg/resc from 03/10 Allergies No Known Allergies Allergy (Verified 03/13/24 08:31) Medication List - Last Reconciled 03/13/24 by Steph Nguyen LPN albuterol 90 mcg/actuation mcg inhalation amlodipine 10 mg PO DAILY carvedilol 25 mg PO BID etanercept (Enbrel SureClick) 50 mg subcut QWEEK fluticasone propionate 44 mcg/actuation (Flovent HFA) 1 puff inhalation BID gabapentin 800 mg PO BID 30 days hydrochlorothiazide 25 mg PO DAILY lisinopril 40 mg PO DAILY semaglutide (weight loss) (Wegovy) 1 mg subcut QWEEK sertraline (Zoloft) 25 mg PO DAILY HPI Comments Details: Scarlet is back in my office with complains on mostly pain in the left hip area. She also complains on new pain in the left knee. She reports that she stopped using her cure on X PNS about 2 months ago. Now her pain is exacerbated. On physical exam is minimal discomfort in the groin with medial rotation of the left hip. I suspect patient has element of left hip arthritis as well as knee arthritis. I will send her today for left hip x-ray/pelvis x-ray to evaluate the position of the electrodes of the cure on X device as well as to evaluate the status of left hip arthritis. I also will send her for x-ray of the left knee. I will see patient in 4 weeks. She does not complain on pain in the upper lumbar spine lower thoracic spine as she was before. She continues to be under care of Dr. Lloyd, she is very satisfied with care Dr. Lloyd it provides for her. Prior diagnostic T11-T12 L1 bilateral medial branch block resulted in complete elimination of the pain for the 1st 5 hours after the procedure.? The pain relieve lasted more than a week after the injection. Obviously we have found her pain generator.? Those are thoracic facet joints.? I offered her steroid injections versus PNS Sprint T12 right following T12 left 1 week after.? She also reports that she has significant hand stiffness in the morning.? His stiffness is lasting 3-4 hours.? This is justified to consider her a rheumatoid arthritis patient.? She is 42 years old and she is primary age for the onset of rheumatoid arthritis.? She was referred to production zone leader and she was placed on steroids. It is significant dose of steroids with weekly taper. H/o excellent results of stim wave bilateral sacroiliac joint stimulation stim wave/curonics.? she reports excellent pain trial with the device.? She reports excellent pain relief after the implant.? She reports all the pain in the lower back in the projection of the sacroiliac joints is all but gone.? Recently started to experience pain in the thoracic spine as well as pain in the knees bilateral.? Palpation of the thoracic spine in the projection of the approximately T6-T7 T8 spinous processes as well as paraspinal regions is very tender.? She reports limited ability to walk because of this pain.? She reports severe pain with range of motion.? She requests me to perform some injections to help her pain.? I will schedule her for T6-T7 T8 bilateral diagnostic medial branch block.? Possibility exist of treating this pain with sprint PNS.? Alternatively RFA comes to my mind however radiofrequency ablation of the thoracic medial branches considered experimental by most insurances.? The evidence in literature is scant on this procedure as well.? Therapeutic medial branches injections once diagnostic procedures established could be performed if it is desired by the patient.? It has been 6 months since implant of stim wave I do not think there are limitations anymore on steroid medications on this patient.? [facility] Medical History Diabetes GERD (gastroesophageal reflux disease) Depression Migraine Back pain Snores Hx of myocardial infarction Anxiety History of COVID-19 HTN (hypertension) Raynaud's disease without gangrene delivery delivered Surgical History History of reversal of tubal ligation Hx of section History of back surgery Lipoma of arm Carpal tunnel syndrome Family History Other Adopted person Medical history unknown Social History Are you a primary doggy daycare activities director to a significant other at home: No Do you presently have visiting nurse or other home services: No Alcohol intake: current Alcohol intake frequency: does not drink Patient Tobacco Use Status: Current someday Tobacco user Tobacco use type: Cigarette Cigarettes Per Day: 3 Years Smoked: 27 Substance Use Type: Marijuana Current occupational status: unemployed and other 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 Review of Systems Const All systems reviewed & are unremarkable except as noted in HPI and below Physical Exam Vital Signs: Last Vital Signs Pulse 78 03/13/24 08:30 Resp 16 03/13/24 08:30 BP 127/82 03/13/24 08:30 Pulse Ox 99 03/13/24 08:30 Oxygen Delivery Method Room Air 03/13/24 08:30 BMI result Body Mass Index 39.1 Const General: cooperative and no acute distress Orientation/consciousness: patient oriented x3 Resp Effort & Inspection: normal respiratory effort, able to speak in complete sentences and no audible wheezes Back/Spine/Pelvis Other: Tenderness on palpation in paraspinal spinal region of the thoracic spine with most tender point at T7. Paraspinal regions are more tender that midline spinal. Chon test Gaenslen test pelvic compression test pelvic destruction test Stinchfield test all positive bilaterally. SLR is negative. Bilateral normal strength of bilateral lower extremities. Valsalva is negative. Pelvic organ function is intact. Neuro General: patient oriented x3 Assessment & Plan Assessment & Plan (1) Sacroiliac joint pain: Code(s): M53.3 - Sacrococcygeal disorders, not elsewhere classified Category: Medical (2) Spondylosis, thoracic, without myelopathy: Code(s): M47.814 - Spondylosis without myelopathy or radiculopathy, thoracic region Category: Medical (3) Dorsalgia of thoracic region: Code(s): M54.6 - Pain in thoracic spine Category: Medical (4) Rheumatoid arthritis: Code(s): M06.9 - Rheumatoid arthritis, unspecified Category: Medical (5) Osteoarthritis of left knee: Code(s): M17.12 - Unilateral primary osteoarthritis, left knee Category: Medical (6) Left knee pain: Code(s): M25.562 - Pain in left knee Category: Medical (7) S/P insertion of spinal cord stimulator: Code(s): Z96.89 - Presence of other specified functional implants Category: Surgical (8) Left hip pain: Code(s): M25.552 - Pain in left hip Category: Medical (9) Arthritis of left hip: Code(s): M16.12 - Unilateral primary osteoarthritis, left hip Category: Medical Plan H/o good result of PNS stimwave for SI joints pain. Now complains on pain in his SI joint however admits not using the device for 2 months. Strongly recommended to continue to wear a stimulator device. H/o good results of Sprint PNS T12 after successful lower thoracic uper lumbar MBB. Does not complain on lower thoracic/upper lumbar pain today. History of hip steroid injections with good results. I will send her for pelvis x-ray to evaluate position of the electrodes of cure on X. I also will evaluate impression of the arthritis of the left hip. I also will send her for left knee x-ray to evaluate left knee arthritis. Possibly injections of the left hip and left knee will be scheduled next time. Diagnosed with RA by Rheumatology. Patient is very satisfied with Dr. Gabino lara. Orders: Orders XR knee LT 3V Today M17.12 - Unilateral primary osteoarthritis, left knee, M25.562 - Pain in left knee XR pelvis min 3V Today M16.12 - Unilateral primary osteoarthritis, left hip, M25.552 - Pain in left hip, Z96.89 - Presence of other specified functional implants Patient Instructions: I here by testify that I spent 32 minutes in conversation with this patient as well as planning her care, appropriate orders and organizing this note. Coding Level of Care Code Est Pt Level 4 (38868) Diagnoses Sacroiliac joint pain M53.3 Spondylosis, thoracic, without myelopathy M47.814 Dorsalgia of thoracic region M54.6 Rheumatoid arthritis M06.9 Osteoarthritis of left knee M17.12 Left knee pain M25.562 S/P insertion of spinal cord stimulator Z96.89 Left hip pain M25.552 Arthritis of left hip M16.12
== END 2024-03-13 08:42 | disposition home or self-care (01) ==
PROVIDERS: PCP Student in an Organized Health Care Education/Training Program; Visit Provider Anesthesiology
DX: M53.3 Sacrococcygeal disorders, not elsewhere classified (principal); M47.814 Spondylosis without myelopathy or radiculopathy, thoracic region; M54.6 Pain in thoracic spine; M06.9 Rheumatoid arthritis, unspecified; M17.12 Unilateral primary osteoarthritis, left knee; M25.562 Pain in left knee; Z96.89 Presence of other specified functional implants; M25.552 Pain in left hip; M16.12 Unilateral primary osteoarthritis, left hip
CPT/HCPCS: 99214

== ENCOUNTER 2024-03-13 08:24 | Outpatient (REF) | payer MEDICAID, SELFPAY ==
--- NOTE | ~2024-03-13 | XR_ITS ---
CLINICAL HISTORY: M17.12 - Unilateral primary osteoarthritis, left knee 3 view left knee Comparison: None Findings: No fractures or dislocations. No significant arthritic change or erosions. No joint effusion. No radiopaque foreign body. IMPRESSION: 1. No acute findings. This document has been electronically signed by: Randy Marsh MD on 03/14/2024 08:36:08
--- NOTE | ~2024-03-13 | XR_ITS ---
CLINICAL HISTORY: Z96.89 - Presence of other specified functional implants 3 view pelvis Comparison: None Findings: No acute fracture or dislocation. No significant arthritic changes. Sacroiliac joints are symmetric and normal in appearance. Soft tissues are unremarkable. Two implanted leads are noted in the dorsal soft tissues. IMPRESSION: 1. No acute findings. This document has been electronically signed by: Randy Marsh MD on 03/14/2024 08:36:18
[2024-03-13 09:08] LABS: MANUAL DIFF FLAG NO
[2024-03-13 09:39] LABS: Basophils Percent Auto 0.5 % (0-2); Eosinophils Absolute Auto 0.2 X10*3/uL (0.0-0.4); Eosinophils Percent Auto 2.3 % (0-4); Hematocrit 36.4 % (37.0-47.0); Hemoglobin 11.8 g/dl (12.0-16.0); Imm Gran Abs Auto 0.02 X10*3/uL (0.00-0.03); Imm Gran Pct Auto 0.3 % (0.0-0.4); Lymphocytes Absolute Auto 2.5 X10*3/uL (1.2-4.9); Lymphocytes Percent Auto 32.9 % (20-40); Mean Corpuscular HGB Conc 32.4 g/dl (31.0-35.0); Mean Corpuscular Hemoglobin 28.4 pg (27.0-33.0); Mean Corpuscular Volume 87.5 fL (80.0-98.0); Mean Platelet Volume 10.2 fL (9.4-12.3); Monocytes Absolute Auto 0.8 X10*3/uL (0.1-1.2); Monocytes Percent Auto 10.5 % (2-11); Neutrophils Percent Auto 53.5 % (45-73); Platelet Count 312 X10*3/uL (160-400); Red Blood Count 4.16 X10*6/uL (4.20-5.50); White Blood Count 7.4 X10*3/uL (4.8-10.8)
[2024-03-13 10:17] LABS: Erythrocyte Sedimentation Rate 29 MM/HR (0-20)
[2024-03-13 10:47] LABS: Alanine Aminotransferase 26 U/L (0-31); Albumin Level 3.8 g/dL (3.5-5.0); Anion Gap 11 (12-20); Aspartate Amino Transferase 22 U/L (5-31); Bilirubin Total 0.2 mg/dL (0.0-1.0); Blood Urea Nitrogen 16 mg/dL (9-16); C Reactive Protein 2.54 mg/dL (< or = 0.50); Carbon Dioxide 23 mmol/L (22-29); Chloride 108 mmol/L (96-108); Estimated Glomerular Filt Rate 48; Glucose Random 131 mg/dL (60-115); Potassium 4.3 mmol/L (3.3-5.1); Sodium 138 mmol/L (135-145); Total Protein 7.5 g/dL (6.5-8.0)
[2024-03-13 12:26] LABS: Alkaline Phosphatase 129 U/L (39-117)
== END 2024-03-13 08:25 | disposition home or self-care (01) ==
LOC: HO.XRAY 08:24
PROVIDERS: Absent Provider Student in an Organized Health Care Education/Training Program; PCP Student in an Organized Health Care Education/Training Program; Visit Provider Anesthesiology
DX: M17.12 Unilateral primary osteoarthritis, left knee (principal); M25.562 Pain in left knee; M25.552 Pain in left hip; Z96.89 Presence of other specified functional implants; M53.3 Sacrococcygeal disorders, not elsewhere classified; M47.814 Spondylosis without myelopathy or radiculopathy, thoracic region; M54.6 Pain in thoracic spine; M16.12 Unilateral primary osteoarthritis, left hip; M06.9 Rheumatoid arthritis, unspecified
CPT/HCPCS: 36415; 72170; 73562; 80053; 85025; 85652; 86140; 99212

== ENCOUNTER → 2024-03-13 09:07 | Outpatient (BNV) | payer MEDICAID, SELFPAY | PROVIDERS: Absent Provider Student in an Organized Health Care Education/Training Program; PCP Student in an Organized Health Care Education/Training Program; Visit Provider Specialist | DX: M17.12 Unilateral primary osteoarthritis, left knee (principal); Z96.82 Presence of neurostimulator | CPT/HCPCS: 72170; 73562 ==

== ENCOUNTER 2024-03-26 12:34 | Outpatient (AMB) | payer MEDICAID, SELFPAY ==
--- NOTE | 2024-03-26 12:54 | A.OFFVIS_ITS ---
Vital Signs 03/26/24 12:55 Height 5 ft 4 in Weight 225 lb BMI 38.6 BP 152/97 H Blood Pressure Location Lt brachial Position Sitting Respiration 16 Pulse 82 Pulse Source Pulse Oximeter Pulse Oximetry (%) 98 Oxygen Delivery Method Room Air Intake Visit Reasons: X-RAY FOLLOW UP Allergies No Known Allergies Allergy (Verified 03/26/24 12:56) Medication List - Last Reconciled 03/26/24 by Steph Nguyen LPN albuterol 90 mcg/actuation mcg inhalation amlodipine 10 mg PO DAILY carvedilol 25 mg PO BID etanercept (Enbrel SureClick) 50 mg subcut QWEEK fluticasone propionate 44 mcg/actuation (Flovent HFA) 1 puff inhalation BID gabapentin 800 mg PO BID 30 days hydrochlorothiazide 25 mg PO DAILY lisinopril 40 mg PO DAILY semaglutide (weight loss) (Wegovy) 1 mg subcut QWEEK sertraline (Zoloft) 25 mg PO DAILY HPI Comments Details: Scarlet is back in my office to discuss the results of the x-rays. Unfortunately she dislodged both of her leads more the left one. She needs a revision. I will schedule her for the revision. She unfortunately continues to smoke cigarettes. I can not offer her SI joint fusion unless she stopped cigarettes completely for 6 months. Therefore the only options we have is to revise her cure on X PNS system. I will schedule her for the revision. Prior: Complains on pain in left hip area. She also complains on new pain in the left knee. She reports that she stopped using her cure on X PNS about 2 months ago. Now her pain is exacerbated. On physical exam is minimal discomfort in the groin with medial rotation of the left hip. I suspect patient has element of left hip arthritis as well as knee arthritis. I will send her today for left hip x-ray/pelvis x-ray to evaluate the position of the electrodes of the cure on X device as well as to evaluate the status of left hip arthritis. I also will send her for x-ray of the left knee. I will see patient in 4 weeks. She does not complain on pain in the upper lumbar spine lower thoracic spine as she was before. She continues to be under care of Dr. Lloyd, she is very satisfied with care Dr. Lloyd it provides for her. Prior diagnostic T11-T12 L1 bilateral medial branch block resulted in complete el imination of the pain for the 1st 5 hours after the procedure.? The pain relieve lasted more than a week after the injection. Obviously we have found her pain generator.? Those are thoracic facet joints.? I offered her steroid injections versus PNS Sprint T12 right following T12 left 1 week after.? She also reports that she has significant hand stiffness in the morning.? His stiffness is lasting 3-4 hours.? This is justified to consider her a rheumatoid arthritis patient.? She is 42 years old and she is primary age for the onset of rheumatoid arthritis.? She was referred to forming machine adjuster and she was placed on steroids. It is significant dose of steroids with weekly taper. H/o excellent results of stim wave bilateral sacroiliac joint stimulation stim wave/[employer].? she reports excellent pain trial with the device.? She reports excellent pain relief after the implant.? She reports all the pain in the lower back in the projection of the sacroiliac joints is all but gone.? Recently s tarted to experience pain in the thoracic spine as well as pain in the knees bilateral.? Palpation of the thoracic spine in the projection of the approximately T6-T7 T8 spinous processes as well as paraspinal regions is very tender.? She reports limited ability to walk because of this pain.? She reports severe pain with range of motion.? She requests me to perform some injections to help her pain.? I will schedule her for T6-T7 T8 bilateral diagnostic medial branch block.? Possibility exist of treating this pain with sprint PNS.? Alternatively RFA comes to my mind however radiofrequency ablation of the thoracic medial branches considered experimental by most insurances.? The evidence in literature is scant on this procedure as well.? Therapeutic medial branches injections once diagnostic procedures established could be performed if it is desired by the patient.? It has been 6 months since implant of stim wave I do not think there are limitations anymore on steroid medications on this p atient.? PFSH Medical History Diabetes GERD (gastroesophageal reflux disease) Depression Migraine Back pain Snores Hx of myocardial infarction Anxiety History of COVID-19 HTN (hypertension) Raynaud's disease without gangrene delivery delivered Surgical History History of reversal of tubal ligation Hx of section History of back surgery Lipoma of arm Carpal tunnel syndrome Family History Other Adopted person Medical history unknown Social History Are you a primary patient care specialist to a significant other at home: No Do you presently have visiting nurse or other home services: No Alcohol intake: current Alcohol intake frequency: does not drink Patient Tobacco Use Status: Current someday Tobacco user Tobacco use type: Cigarette Cigarettes Per Day: 3 Years Smoked: 27 Substance Use Type: Marijuana Current occupational status: unemployed and other 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 Review of Systems Const All systems reviewed & are unremarkable except as noted in HPI and below Physical Exam Vital Signs: Last Vital Signs Pulse 82 03/26/24 12:55 Resp 16 03/26/24 12:55 BP 152/97 H 03/26/24 12:55 Pulse Ox 98 03/26/24 12:55 Oxygen Delivery Method Room Air 03/26/24 12:55 BMI result Body Mass Index 38.6 Const General: cooperative and no acute distress Orientation/consciousness: patient oriented x3 Resp Effort & Inspection: normal respiratory effort, able to speak in complete sentences and no audible wheezes Back/Spine/Pelvis Other: Tenderness on palpation in paraspinal spinal region of the thoracic spine with most tender point at T7. Paraspinal regions are more tender that midline spinal. Chon test Gaenslen test pelvic compression test pelvic destruction test Stinchfield test all positive bilaterally. SLR is negative. Bilateral normal strength of bilateral lower extremities. Valsalva is negative. Pelvic organ function is intact. Neuro General: patient oriented x3 Assessment & Plan Assessment & Plan (1) Sacroiliac joint pain: Code(s): M53.3 - Sacrococcygeal disorders, not elsewhere classified Category: Medical (2) Spondylosis, thoracic, without myelopathy: Code(s): M47.814 - Spondylosis without myelopathy or radiculopathy, thoracic region Category: Medical (3) Dorsalgia of thoracic region: Code(s): M54.6 - Pain in thoracic spine Category: Medical (4) Rheumatoid arthritis: Code(s): M06.9 - Rheumatoid arthritis, unspecified Category: Medical (5) Osteoarthritis of left knee: Code(s): M17.12 - Unilateral primary osteoarthritis, left knee Category: Medical (6) Left knee pain: Code(s): M25.562 - Pain in left knee Category: Medical (7) S/P insertion of spinal cord stimulator: Code(s): Z96.89 - Presence of other specified functional implants Category: Surgical (8) Left hip pain: Code(s): M25.552 - Pain in left hip Category: Medical (9) Arthritis of left hip: Code(s): M16.12 - Unilateral primary osteoarthritis, left hip Category: Medical Plan H/o good result of PNS stimwave for SI joints pain. Now complains on pain in his SI joint however admits not using the device for 2 months. Unfortunately she dislodged her leads bilaterally. She needs a revision. I will schedule her for the revision of cure on X PNS. H/o good results of Sprint PNS T12 after successful lower thoracic uper lumbar MBB. Does not complain on lower thoracic/upper lumbar pain today. History of hip steroid injections with good results. X-ray of the left knee does not demonstrate any pathology. Most likely pain is coming from the left sacroiliac joint were the devices dislodged more. Diagnosed with RA by Rheumatology. Patient is very satisfied with Dr. Gabino lara. Coding Level of Care Code Est Pt Level 3 (45480) Diagnoses Sacroiliac joint pain M53.3 Spondylosis, thoracic, without myelopathy M47.814 Dorsalgia of thoracic region M54.6 Rheumatoid arthritis M06.9 Osteoarthritis of left knee M17.12 Left knee pain M25.562 S/P insertion of spinal cord stimulator Z96.89 Left hip pain M25.552 Arthritis of left hip M16.12
[2024-03-26 12:55] VITALS: BP 152/97; PULSE 82; RESP 16; O2SAT 98; BMI 38.6
--- OUTSIDE RECORDS SUMMARY | 2024-03-26 14:22 | XMS_ITS | Clinical Summary ---
Author Organization [facility] Address [address] [place] [address] Care Team Providers Care Taste Tester Name Role Phone Shell Lazaro MD Primary Care Provider [phone] Social History Tobacco Use Types Packs/Day Years Used Date Smoking Tobacco: Never Assessed Sex and Gender Information Value Date Recorded Sex Assigned at Not on file Gender Identity Not on file Sexual Orientation Not on file Job Start Date Occupation Industry Not on file Not on file Not on file Plan of Treatment Health Maintenance Due Date Last Done Comments Hepatitis B Vaccines (1 of 3 - 3-dose series) 1979 Hepatitis C Screening 1979 COVID-19 Vaccine (#1) 1979 Depression Screening 1991 Preventative Health Evaluation 1997 DTap / Tdap / Td (1 - Tdap) 1998 Cervical Cancer Screening (P ap Smear) 02/23/2000 Influenza Vaccine (#1) 2023 Colon Cancer Screening (Colonoscopy) 02/23/2024 Pneumococcal Vaccine Aged Out No long er eligible based on patient's age to complete this topic RSV Ped < 20 months Aged Out No longe r eligible based on patient's age to complete this topic Care Teams Taste Tester Relationship Specialty Start Date End Date Shell Lazaro MD [address] [place] [address] [place] [address] PCP - General Adult Medicine 07/01/20
--- OUTSIDE RECORDS SUMMARY | 2024-03-26 14:23 | XMS_ITS | Clinical Summary ---
Author Organization [employer] Address [address] [place] [address] [address] [place] [address] Care Team Providers Care Business Banker Name Role Phone Shell Lazaro MD Primary Care Provider [phone] Allergies Active Allergy Reactions Criticality Noted Date Comments Acetaminophen Hives 10/31/2019 Oxycodone Shortness of breath,Hives High 10/31/2019 Medications sertraline (Zoloft) 25 MG tablet Take 1 tablet by mouth at bed time. 2 Active cholecalciferol (Vitamin D-3) 50 MCG (1999 UT) tablet Take by mouth at bed time. 2 Active celecoxib (CeleBREX) 50 MG capsule TAKE 1 CAPSULE(50 MG) BY MOUTH IN THE MORNING 90 capsule 3 4 Active Ventolin HFA 108 (90 Base) MCG/ACT inhaler INHALE 2 PUFFS BY MOUTH EVERY 4 HOURS NEEDED FOR WHEEZING 18 g 4 Active Enbrel SureClick 50 MG/ML injection 4 Active methocarbamol (Robaxin) 750 MG tablet Take 1 tab oral tid prn as muscle relaxant 90 tablet 1 4 Active lisinopril 40 MG tablet TAKE 1 TABLET(40 MG) BY MOUTH IN THE MORNING 90 tablet 1 4 Active amLODIPine (Norvasc) 10 MG tablet TAKE 1 TABLET(10 MG) BY MOUTH IN THE MORNING 90 tablet 1 4 Active hydroCHLOROthiaz eddy (HYDRODiuril) 25 MG tablet TAKE 1 TABLET(25 MG) BY MOUTH IN THE MORNING 90 tablet 1 4 Active fluticasone-salm eterol (Advair) 230-21 MCG/ACT inhaler Inhale 2 puffs in the morning and at bedtime. Rinse mouth with water after use to reduce aftertaste and incidence of candidiasis. Do not swallow. 12 g 4 025 Active carvedilol (Coreg) 25 MG tablet Take 1 tablet (25 mg) by mouth at bedtime. 30 tablet 4 025 Active Blood Pressure kitIndications:P rimary hypertension BP check daily 1 kit 4 Active gabapentin (Neurontin) 100 MG capsule TAKE 1 CAPSULE(100 MG) BY MOUTH AT BEDTIME 30 capsule 11 4 Active Semaglutide-Weig ht Management (Wegovy) 1 MG/0.5ML solution auto-injector Inject 0.5 mL (1 mg) under the skin 1 (one) time per week. 0.5 mL 3 4 Active azithromycin (Zithromax Z-Ángel) 250 MG tablet Take 2 tabs day 1 and then 1 tab daily to finish 6 tablet 4 Active albuterol (2.5 MG/3ML) 0.083% nebulizer solution Take 3 mL (2.5 mg) by nebulization every 6 (six) hours if needed for wheezing. 75 mL 11 4 025 Active Dextromethorphan -guaiFENesin (Mucinex DM) 30-600 MG tablet sustained-releas e 12 hour Use 1 tab TID 28 tablet 4 Active Active Problems Problem Noted Date Diagnosed Date Class 2 severe obesity with serious comorbidity and body mass index (BMI) of 38.0 to 38.9 in adult 01/24/2024 Rheumatoid arthritis 10/05/2023 Raynaud's disease without gangrene 10/05/2023 Chronic pain of left knee 06/26/2022 Traumatic injury of mid back 06/26/2022 Assessment & Plan (06/26/2022 2:27 PM EDT): Patient persist with low back pain, xray results not available, told to continue resting, apply ice/heat pads, take tylenol q4-6hr and ibuprofen TID, will also send a script for prednisone for 5 days, in case of worsening symptoms such as weakness told to visit er. Smoker 11/20/2012 Primary hypertension 11/20/2012 Myocardial infarction 11/20/2012 Chronic bilateral low back pain without sciatica 11/20/2012 Encounters Date Type Department Care Team Description 03/13/2024 Orders Only GENERIC EXTERNAL DATA DEPARTMENT Provider, Generic External Data 01/28/2024 Telephone [facility] [address] [place] [phone] Shell Lazaro MD Medication Question 01/24/2024 9:30 AM EST Office Visit [facility] [address] [place] [address] Shell Laazro MD Primary hypertension (Primary Dx); Class 2 severe obesity with serious comorbidity and body mass index (BMI) of 38.0 to 38.9 in adult, unspecified obesity type (CMS/HCC); Acute bronchitis, unspecified organism 01/24/2024 Travel 01/23/2024 Telephone [facility] [address] [place] [address] Shell Lazaro MD Chart Prep 01/11/2024 9:15 AM EST Office Visit [facility] [address] [place] [address] Shell Lazaro MD Chronic bilateral low back pain without sciatica (Primary Dx); Encounter for immunization; Class 2 severe obesity with serious comorbidity and body mass index (BMI) of 39.0 to 39.9 in adult, unspecified obesity type (CMS/HCC) 01/11/2024 Travel 01/02/2024 Telephone [facility] [address] [place] [phone] Shell Lazaro MD Nurse Triage from Last 3 Months Immunizations Name Administration Dates Next Due Hep B, Unspecified 11/07/1995,06/13/1995, 996 Influenza injectable quadriv alent preservative free 12/06/2022,11/28/2016 Influenza, seasonal, injecta ble, preservative free 01/11/2024 Tdap 10/05/2023 Social History Tobacco Use Types Packs/Day Years Used Date Smoking Tobacco: Every Day Cigarettes Passive Smoke Exposure: Current Smokeless Tobacco: Never Tobacco Cessation:Ready to Q uit: Not Asked; Counseling Given: Not Answered Alcohol Answer Date Recorded Frequency of Alcohol Consumption Not on file 12/06/2022 Average Number of Drinks Not on file 023 Frequency of Binge Drinking Not on file 06/2022 Score 0 12/06/2022 Depression Answer Date Recorded Patient Health Questionnaire-9 Score 11 01/11/2024 Patient Health Questionnaire-9 Score 11 01/11/2024 Last PHQ-9: Questionnaire Data Not on file 1 03/12/2023 Housing Stability Answer Date Recorded What is your housing situation today? I have tello yates 06/01/[address] you li ve. Do you have problems with any of the following? None of the above 06/01/2023 Food Insecurity Answer Date Recorded Within the past 12 months, y ou worried that your food would run out before you got money to buy more: Never True 06/01/2023 Within the past 12 months,th e food you bought just didn't last and you didn't have enough money to get more: Never True Transportation Answer Date Recorded In the past 12 months, has l ack of transportation kept you from medical appts, meetings, work or from getting things needed for daily living? No 06/01/2023 Utilities Answer Date Recorded In the past 12 months, has t he electric, gas, oil or water company threatened to shut off services in your home? No 06/01/2023 Depression Answer Date Recorded Patient Health Questionnaire-2 Score 4 01/11/2024 Comments No Sex and Gender Information Value Date Recorded Sex Assigned at Female 01/02/2022 10:25 AM EDT Legal Sex Female 10:25 AM EDT Gender Identity Female 01/02/2022 10:25 AM EDT Sexual Orientation Lesbian or Montes 01/02/2022 10 :25 AM EDT Last Filed Vital Signs Vital Sign Reading Time Taken Comments Blood Pressure 152/89 01/24/2024 9:34 AM EST Pulse 79 01/24/2024 9:34 AM EST Temperature 36.6 ??C (97.9 ??F) 01/24/2024 9:34 AM ES T Respiratory Rate 18 01/24/2024 9:34 AM EST Oxygen Saturation 98% 01/11/2024 9:06 AM EST Inhaled Oxygen Concentration - - Weight 102 kg (224 lb) 01/24/2024 9:34 AM EST Height 162.6 cm (5' 4 ) 01/24/2024 9:34 AM EST Body Mass Index 38.45 01/24/2024 9:34 AM EST Plan of Treatment Health Maintenance Due Date Last Done Comments CT Colonography 1979 Colonoscopy 1979 Colorectal Cancer Screening 1979 FIT DNA/Cologuard 1979 FIT 1979 FOBT 1979 HIV Screening 1979 Sigmoidoscopy 1979 Pneumococcal Vaccine: Pediatrics (0 to 5 Years) and At-Risk Patients (6 to 64 Years) (1 of 2 - PCV) 1985 Alcohol/Substance Use Screening 1991 Pap Smear 02/23/2000 Cervical Cancer Screening 04/30/2023 HPV/Cotest 04/30/2023 04/30/2018 Mammogram 08/13/2023 08/12/2021 COVID-19 Vaccine ( - season) 2023 04/20/2020, 03/30/2020 SDOH Screening 05/31/2024 06/01/2023 Depression Monitoring (PHQ-9) 07/10/2024 01/11/2024, 01/11/2024 Depression Screening 01/10/2025 01/11/2024, 01/11/20 24 Tobacco Screening 01/23/2025 01/24/2024 Lipid Panel 10/10/2028 10/11/2023, 06/0 05/2021, 03/14/2021 Zoster Vaccines (1 of 2) 2029 DTaP/Tdap/Td Vaccines (2 - Td or Tdap) 10/04/2033 10/05/2023 RSV Patients and Patients Aged 60 years or older (1 - 1-dose 75+ series) 2054 Hepatitis B Vaccines Completed 11/07/1995, 06/13/1995, 05/11/1995 Hepatitis C Screening Completed 11/08/2022 Influenza Vaccine Completed 01/11/2024, , 11/28/2016, Additional history exists HIB Vaccines Aged Out No longer eligi ble based on patient's age to complete this topic HPV Vaccines Aged Out No longer eligi ble based on patient's age to complete this topic Hepatitis A Vaccines Aged Out No long er eligible based on patient's age to complete this topic IPV Vaccines Aged Out No longer eligi ble based on patient's age to complete this topic Meningococcal Vaccine Aged Out No rusty geoff eligible based on patient's age to complete this topic RSV under 20 months Aged Out No longe r eligible based on patient's age to complete this topic Rotavirus Vaccines Aged Out No longer eligible based on patient's age to complete this topic Procedures Procedure Name Priority Date/Time Associated Diagnosis Comments XR PELVIS 1-2 VIEWS Routine 03/14/2024 8 :36 AM EST XR KNEE 3 VIEWS LEFT Routine 03/14/2024 8:36 AM EST SED RATE BY MODIFIED WESTERGREN Routine 03/13/2024 9:06 AM EST CBC WITH AUTO DIFFERENTIAL Routine 03/13/2024 9:06 AM EST LIPID PANEL, STANDARD Routine 10/11/2023 8:07 AM EDT Primary hypertension HEPATITIS PANEL, GENERAL Routine 11/08/2022 12:06 PM EDT MAMMOGRAM GENERIC Routine 08/12/2021 10: 25 AM EDT ZZZ HISTORICAL HPV MRNA E6/E7 Routine 04/30/2018 4:00 PM EST from Last 3 Months or Most Recently Relevant to Health Maintenance Results * XR Pelvis 1-2 Views (03/14/2024 8:36 AM EST) Anatomical Region Laterality Modality Body, Pelvis Radiographic Lila ging 03/14/2024 8:36 AM EST Narrative 03/14/2024 8:37 AM EST ? [facility] ?[address] ?[place] [address] ?XRay Report ? Signed ? Patient: Calvert,Scarlet ?MR#: [id number] ?? 44 ? : 1980 ?Acct:[id number] ? Age/Sex: 44 / F ?ADM Date: 01/09/25 ? Loc: HO.XRAY ? Attending Dr: Gabe You MD ? Ordering Physician: Gabe You MD ?? Date of Service: 03/13/24 ?? Procedure(s): XR pelvis 1-2V ?? Accession Number(s): [id number] ? cc: Gabe You MD; Shell Lazaro MD ? CLINICAL HISTORY: Z96.89 - Presence of other specified functional implants ? 3 view pelvis ? Comparison: None ? Findings: ?? No acute fracture or dislocation. ?? No significant arthritic changes. ?? Sacroiliac joints are symmetric and normal in appearance. ?? Soft tissues are unremarkable. ?? Two implanted leads are noted in the dorsal soft tissues. ? IMPRESSION: ?? 1. No acute findings. ? This document has been electronically signed by: Randy Marsh MD on ?? 03/14/2024 08:36:18 ? Dictated By: ?Randy Marsh MD ? Signed By: ?<Electronically signed by Randy Marsh MD in OV> ?03/14/24 0837 ? DD/ 5 ? TD/TT: 03/14/24835 ? Janitor And Cleaner: ? Procedure Note Kristi, Image - 03/14/2024 [place] [address] XRay Report Signed Patient: Vince Calvert#: [id number] 44 : 1980Acct:[id number] Age/Sex: 44 / FADM Date: 03/13/24 Loc: RADHA Attending Dr: Gabe You MD Ordering Physician: Gabe You MD Date of Service: 03/13/24 Procedure(s): XR pelvis 1-2V Accession Number(s): [id number] cc: Gabe You MD; Shell Lazaro MD CLINICAL HISTORY: Z96.89 - Presence of other specified functional implants 3 view pelvis Comparison: None Findings: No acute fracture or dislocation. No significant arthritic changes. Sacroiliac joints are symmetric and normal in appearance. Soft tissues are unremarkable. Two implanted leads are noted in the dorsal soft tissues. IMPRESSION: 1. No acute findings. This document has been electronically signed by: Randy Marsh MD on 03/14/2024 08:36:18 Dictated By: Randy Marsh MD Signed By: <Electronically signed by Randy Marsh MD in OV> 03/14/2437 DD/ 5 TD/TT: 03/14/24835 Janitor And Cleaner: [facility] External Provider IMG XR PROCEDURES Final Result * XR Knee 3 Views Left (03/14/2024 8:36 AM EST) Anatomical Region Laterality Modality Lower Extremities, Knee Left Radiogra phic Imaging 03/14/2024 8:36 AM EST Narrative 03/14/2024 8:37 AM EST ? [facility] ?[address] ?[place] [address] ?XRay Report ? Signed ? Patient: Scarlet Calvert ?MR#: [id number] ?? 44 ? : 1980 ?Acct:[id number] ? Age/Sex: 44 / F ?ADM Date: 03/13/24 ? Loc: HO.XRAY ? Attending Dr: Gabe You MD ? Ordering Physician: Gabe You MD ?? Date of Service: 03/13/24 ?? Procedure(s): XR knee LT 3V ?? Accession Number(s): [id number] ? cc: Gabe You MD; Shell Lazaro MD ? CLINICAL HISTORY: M17.12 - Unilateral primary osteoarthritis, left knee ? 3 view left knee ? Comparison: None ? Findings: ?? No fractures or dislocations. ?? No significant arthritic change or erosions. ?? No joint effusion. ?? No radiopaque foreign body. ? IMPRESSION: ?? 1. No acute findings. ? This document has been electronically signed by: Randy Marsh MD on ?? 03/14/2024 08:36:08 ? Dictated By: ?Randy Marsh MD ? Signed By: ?<Electronically signed by Randy Marsh MD in OV> ?03/14/24 0837 ? DD/ 0836 ? TD/TT: 03/14/24 0836 ? Janitor And Cleaner: ? Procedure Note Kristi, Image - 01/10/[address] [address] XRay Report Signed Patient: Vince Calvert#: [id number] 44 : 1980Acct:[id number] Age/Sex: 44 / FADM Date: 03/13/24 Loc: HO.[facility] Attending Dr: Gabe You MD Ordering Physician: Gabe You MD Date of Service: 03/13/24 Procedure(s): XR knee LT 3V Accession Number(s): [id number] cc: Gabe You MD; Shell Lazaro MD CLINICAL HISTORY: M17.12 - Unilateral primary osteoarthritis, left knee 3 view left knee Comparison: None Findings: No fractures or dislocations. No significant arthritic change or erosions. No joint effusion. No radiopaque foreign body. IMPRESSION: 1. No acute findings. This document has been electronically signed by: Randy Marsh MD on 03/14/2024 08:36:08 Dictated By: Randy Marsh MD Signed By: <Electronically signed by Randy Marsh MD in OV> 03/14/24 0837 DD/ TD/TT: 03/14/24835 Janitor And Cleaner: [facility] External Provider IMG XR PROCEDURES Final Result * (ABNORMAL) CBC auto differential (03/13/2024 9:06 AM EST) White Blood Count 7.4 4.8 - 10.8 X10*3/uL [facility] Red Blood Count 4.16(L) 4.20 - 5.50 X10*6/uL [facility] Hemoglobin 11.8(L) 12.0 - 16.0 g/dl [facility] Hematocrit 36.4(L) 37.0 - 47.0 % [facility] Mean Corpuscular Volume 87.5 80.0 - 98.0 fL [facility] Mean Corpuscular Hemoglobin 28.4 27.0 - 33.0 pg [facility] Mean Corpuscular HGB Conc 32.4 31.0 - 35.0 g/dl [facility] Red Cell Distribution Width 14.0 11.0 - 16.0 % [facility] Platelet Count 312 160 - 400 X10*3/uL [facility] Mean Platelet Volume 10.2 9.4 - 12.3 fL [facility] Neutrophils Percent Auto 53.5 45 - 73 % [facility] Imm Gran Pct Auto 0.3 0.0 - 0.4 % [facility] Lymphocytes Percent Auto 32.9 20 - 40 % [facility] Monocytes Percent Auto 10.5 2 - 11 % [facility] Eosinophils Percent Auto 2.3 0 - 4 % [facility] Basophils Percent Auto 0.5 0 - 2 % [facility] NRBC Pct Auto 0.0 0.0 - 0.2 /100WBC [facility] Neutrophils Absolute Auto 4.0 2.0 - 8.3 x10*3/uL [facility] Imm Gran Abs Auto 0.02 0.00 - 0.03 X10*3/uL [facility] Lymphocytes Absolute Auto 2.5 1.2 - 4.9 X10*3/uL [facility] Monocytes Absolute Auto 0.8 0.1 - 1.2 X10*3/uL [facility] Eosinophils Absolute Auto 0.2 0.0 - 0.4 X10*3/uL [facility] Basophils Absolute Auto 0.0 0.0 - 0.2 X10*3/uL [facility] NRBC Abs Auto 0.000 0.0 - 0.012 X10*3/uL [facility] 03/13/2024 9:06 AM EST 03/13/2024 9:06 AM EST us Generic External Data Provider LAB BLOOD ORDERAB LES Final Result [facility] [address] [place], [place] [phone] * (ABNORMAL) Sed Rate by Modified Fanny (03/13/2024 9:06 AM EST) Erythrocyte Sedimentation Rate 29(H) 0 - 20 MM/HR [facility] Comment:Patients with polycy themia and many hemoglobin abnormalitiesmay have depressed sed rates whereas patients with anemiamay have elevated sed rates. 03/13/2024 9:06 AM EST 03/13/2024 9:06 AM EST us Generic External Data Provider LAB BLOOD ORDERAB LES Final Result Performing Organization Address City/[facility] Co de Phone Number [facility] [address] [place] [phone] * (ABNORMAL) Lipid Panel, Standard (10/11/2023 8:07 AM EDT) Triglycerides 142 <150 mg/dL [facility] Comment:Desirable Triglyceri de: less than 150 mg/dLBorderline High Triglyceride 150-199 mg/dLHigh Triglyceride: 200-499 mg/dLVery High Triglyceride: greater than or equal to 5OO mg/dL Cholesterol 184 <200 mg/dL [facility] Comment:Desirable Cholestero l: less than 200 mg/dLBorderline High Cholesterol: 200-239 mg/dLHigh Cholesterol: greater than 239 mg/dL LDL Cholesterol Calculated 120(H) <100 mg/dL [facility] Comment:Desirable LDL: less than 100 mg/dLNear Optimal/Above Optimal LDL: 110- 129 mg/dLBorderline High LDL: 130-159 mg/dLHigh LDL: 160-189 mg/dLVery High LDL: greater than or equal to 190 mg/dL HDL Cholesterol 36(L) >40 mg/dL [facility] Comment:Desirable HDL: great er than 40 mg/dL Note: This HDL assay may give artificially low results in patients with liver disease. Blood Venous blood specimen / Unknown 10/11/2023 8:07 AM EDT 10/11/2023 8:15 AM EDT us Shell Lazaro MD LAB BLOOD ORDERABLES Final Resul t Performing Organization Address City/State/[facility] Co de Phone Number [facility] [address] [place] [address] [phone] * Hepatitis Panel, General (11/08/2022 12:06 PM EDT) Hepatitis A IgM Nonreactive Nonreactive [facility] Comment:IgM antibodies to GOMEZ V not detected; does not exclude earlyacute or recovered HAV infection. ~Hepatitis B Surface Antibody REACTIVE Nonreactive [facility] Comment:REACTIVE: > 11.99 mI U/mL Hepatitis B Core Antibody Nonreactive Nonreactive [facility] Hepatitis C Antibody Nonreactive Nonreactive [facility] Comment:Antibodies to HCV no t detected; does not exclude early acuteHCV infection. Hepatitis B Surface Ag Negative Negative [facility] 11/08/2022 12:0 6 PM EDT 11/08/2022 12:11 PM EDT [facility] External Provider LAB BLO OD ORDERABLES Final Result Performing Organization Address [facility] Co de Phone Number [facility] [address] [place] [address] [phone] * Mammography Report 1 (08/12/2021 10:25 AM EDT) Anatomical Region Laterality Modality Breast Bilateral Mammography 08/12/2021 10:2 5 AM EDT Narrative 09/07/2021 4:14 PM EDT Refer to the Notes tab for result details [facility] Procedure: Mammography Report 1 Procedure Note Provider, MD [place] - 05/28/2022 Refer to the Notes tab for result details [facility] Procedure: Mammography Report 1 Shell Lazaro MD IMG BI PROCEDURES Final Result * HPV mRNA E6/E7 (04/30/2018 4:00 PM EST) HPV mRNA E6/E7 Not Detected NOT DETECTED [facility] Comment: This test was performed using the APTIMA(R) HPV Assay ([employer] This assay detects E6/E7 viral messenger RNA (mRNA) from 14 high-risk HPV types (16,18,31,33,35,39,45,51, 52,56,58,59,66,68). For additional information please refer to: http://education.[employer]/faq/UGD263f5 (This link is being provided for informational/ educational purposes only.) The analytical performance characteristics of this assay have been determined by [employer] [place], [place]. The modifications have not been cleared or approved by the FDA. This assay has been validated pursuant to the CLIA regulations and is used for clinical purposes. Test Performed by [facility], [employer] [facility], [address] [place] [address] Chon Carrillo M.D., Ph.D., Director of Laboratories , CLIA [id number] Please note: ??Effective 11/15/2015, HPV testing will be performed using [employer]'s APTIMA test which targets mRNA. Detecting mRNA instead of DNA, as in older methods, offers significant improvements in specificity. 04/30/2018 4:00 PM EST Gloria Mcmillan CNM HISTORICAL/NON ORDERABLE LABS Final Result Performing Organization Address City/State/[facility] Co de Phone Number [facility] [address] from Last 3 Months or Most Recently Relevant to Health Maintenance Insurance [employer] Care Teams Business Banker Relationship Specialty Start Date End Date Shell Lazaro MD [address] [place] [phone] PCP - General Family Medicine 04/04/13
--- OUTSIDE RECORDS SUMMARY | 2024-03-26 14:23 | XMS_ITS | Encounter Summary ---
Author Organization [employer] Address [address] [place] [address] [address] [place] [address] Care Team Providers Care City Driver Name Role Phone Shell Lazaro MD Primary Care Provider [phone] Reason for Visit * Reason Onset Date Comments Nurse Triage 09/13/2022 Encounter Details Date Type Department Care Team ([facility] st Contact Info) Description 09/13/2022 Telephone [facility] [address] [place] [address] Shell Lazaro MD [address] [place] [address] Nurse Triage Social History Tobacco Use Types Packs/Day Years Used Date Smoking Tobacco: Every Day Cigarettes Passive Smoke Exposure: Current Smokeless Tobacco: Never Comments Unknown Sex and Gender Information Value Date Recorded Sex Assigned at Female 01/02/2022 10:25 AM EDT Legal Sex Female 10:25 AM EDT Gender Identity Female 01/02/2022 10:25 AM EDT Sexual Orientation Lesbian or Montes 01/02/2022 10 :25 AM EDT documented as of this encounter Miscellaneous Notes * Telephone Encounter - Valerie Green RN - 09/13/2022 11:22 AM EDT Triage call Pt reports finding a mass or swelling under right buttocks, top of the back of thigh area. Pt reports finding this yesterday and having a lipoma on the left side. Pt reports it is uncomfortable to sit , it feels hard to the touch, denies swelling, redness, warmth to touch and not itchy. Apt with provider in [facility] 09/14 @ 140pm . Pt agrees with disposition and insurance is verified as active prior to booking. Protocol Used: Skin Lump or Localized Swelling (Adult) Protocol-Based Disposition: See in Office or Video Visit within 3 Days Video visit not offered Positive Triage Question: * Small swelling or lump present > 1 week * All higher-acuity triage questions were negative Care Advice Discussed: * Reasons To Call Back - Fever occurs - Spreading redness occurs - Swelling becomes painful - Swelling persists over 1 week - You become worse * Telephone Encounter - Greg Koenig - 09/13/2022 11:08 AM EDT Symptom: Leg Swelling - Not From Injury Outcome: Schedule an urgent appointment (within 1 hour) or talk to a nurse or provider soon Reason: Severe leg pain now The caller accepted this outcome Please contact pt at [phone] documented in this encounter Plan of Treatment Not on file documented as of this encounter Visit Diagnoses Not on filedocumented in this encounter Care Teams City Driver Relationship Specialty Start Date End Date Shell Lazaro MD [address] [place] [phone] PCP - General Family Medicine 04/04/13 documented as of this encounter
--- OUTSIDE RECORDS SUMMARY | 2024-03-26 14:23 | XMS_ITS | Encounter Summary ---
Author Organization [employer] Address [address] [facility] 7t [place] [address] Care Team Providers Care Investigative Research Specialist Name Role Phone Shell Lazaro MD Primary Care Provider [phone] Reason for Visit * Reason Onset Date Comments Appointment Request 05/21/2023 Encounter Details Date Type Department Care Team ([facility] st Contact Info) Description 05/21/2023 Telephone [facility] [address] [place] [address] Shell Lazaro MD [address] [place], [place] [phone] Appointment Request Social History Tobacco Use Types Packs/Day Years Used Date Smoking Tobacco: Every Day Cigarettes Passive Smoke Exposure: Current Smokeless Tobacco: Never Alcohol Answer Date Recorded Frequency of Alcohol Consumption Not on file 12/06/2022 Average Number of Drinks Not on file 023 Frequency of Binge Drinking Not on file 06/2022 Score 0 12/06/2022 Comments No Sex and Gender Information Value Date Recorded Sex Assigned at Female 01/02/2022 10:25 AM EDT Legal Sex Female 10:25 AM EDT Gender Identity Female 01/02/2022 10:25 AM EDT Sexual Orientation Lesbian or Montes 01/02/2022 10 :25 AM EDT documented as of this encounter Miscellaneous Notes * Telephone Encounter - Wing Alex RN - 05/21/2023 9:55 AM EDT Tc to pt regarding appt request. Pt states that she is worried about her weight gain due to her back injury from three years ago that currently prevents her from hiking and walking. Pt states she is sitting and eating and with being unable to exercise, is gaining weight. Pt states she is open to taking about any weight loss options included gastro bypass. Scheduled appt with PCP for 06/12 at 10:45am. Pt verbalizes understanding and agreement with plan. Pt also states she was diagnosed with osteoarthritis and rheumatoid arthritis. In addition pt is taking enbrel shots and is currently on wk 5. * Telephone Encounter - Grover Bird - 05/21/2023 9:28 AM EDT Tc from patient calling to request a appt with the PCP to discuss about any weight loss programs documented in this encounter Plan of Treatment Not on file documented as of this encounter Visit Diagnoses Not on filedocumented in this encounter Care Teams Investigative Research Specialist Relationship Specialty Start Date End Date Shell Lazaro MD [address] [place] [address] PCP - General Family Medicine 04/04/13 documented as of this encounter
--- OUTSIDE RECORDS SUMMARY | 2024-03-26 14:23 | XMS_ITS | Encounter Summary ---
Author Organization [employer] Address [address] [place] [address] 7t [place] [address] Care Team Providers Care Life Insurance Actuary Name Role Phone Shell Lazaro MD Primary Care Provider [phone] Reason for Visit * Reason Onset Date Comments Referral 09/19/2022 Encounter Details Date Type Department Care Team ([facility] st Contact Info) Description 09/19/2022 Telephone [facility] [address] [place] [address] Shell Lazaro MD [address] [place] [address] Referral Social History Tobacco Use Types Packs/Day Years [...] encounter Miscellaneous Notes * Telephone Encounter - Anshu Riley RN - 09/29/2022 12:49 PM EDT Please review message below. Requesting a new order for a mammogram. * Telephone Encounter - Shell Lazaro MD - 09/29/2022 12:13 PM EDT Annual Mammo * Telephone Encounter - Anshu Riley RN - 09/19/2022 3:01 PM EDT See scanned in mammography report under imaging dated 08/12/21. Impression: No mammographic evidenceof malignancy. Birads-1 negative. Recommendation is a routine annual mammography screening. Will forward request for order to PCP to review. Please advise. Thank you. * Telephone Encounter - Li Fuentes - 09/19/2022 2:34 PM EDT TC from pt requesting a mamogram order to location : [facility] : [facility] [address] [place] [address] Lazaro documented in this encounter Plan of Treatment Not on file documented as of this encounter Visit Diagnoses Not on filedocumented in this encounter Care Teams Life Insurance Actuary Relationship Specialty Start Date End Date Shell Lazaro MD [address] [place] [address] [place] [address] PCP - General Family Medicine 04/04/13 documented as of this encounter
--- OUTSIDE RECORDS SUMMARY | 2024-03-26 14:23 | XMS_ITS | Encounter Summary ---
Author Organization [employer] Address [address] [facility] 7t [place] [address] Care Team Providers Care Outreach Clinician Name Role Phone Shell Lazaro MD Primary Care Provider [phone] Encounter Details Date Type Department Care Team (Late st Contact Info) Description 03/13/2024 Orders Only GENERIC EXTERNAL DATA DEPARTMENT Provider, Generic External Data Social History Tobacco Use Types Packs/Day Years Used Date Smoking Tobacco: Every Day Cigarettes Passive Smoke Exposure: Current Smokeless Tobacco: Never Alcohol Answer Date Recorded Frequency of Alcohol Consumption Not on file 12/06/2022 Average Number of Drinks Not on file 023 Frequency of Binge Drinking Not on file 100 06/2022 Score 0 12/06/2022 Depression Answer Date [...] past 12 months, has t he electric, [employer], oil or water [employer] threatened to shut off services in your [...] AM EDT documented as of this encounter Plan of Treatment Not on file documented as of this encounter Procedures Procedure Name Priority Date/Time Associated Diagnosis Comments XR PELVIS 1-2 VIEWS Routine 03/14/2024 8 :36 AM EST XR KNEE 3 VIEWS LEFT Routine 03/14/2024 8:36 AM EST CBC WITH AUTO DIFFERENTIAL Routine 03/13/2024 9:06 AM EST SED RATE BY MODIFIED WESTERGREN Routine 03/13/2024 9:06 AM EST documented in this encounter Results * XR Pelvis 1-2 Views (03/14/2024 8:36 AM EST) Anatomical Region Laterality Modality Body, Pelvis Radiographic Lila ging 03/14/2024 8:36 AM EST Narrative 03/14/2024 8:37 AM EST ? [facility] ?[address] ?[place] [address] ?XRay Report ? Signed ? Patient: Calvert,Scarlet ?MR#: [id number] ?? 44 ? : 1980 ?Acct:[id number] ? Age/Sex: 44 / F ?ADM Date: 01/09/25 ? Loc: HO.XRAY ? Attending Dr: Gabe You MD ? Ordering Physician: Gabe You MD ?? Date of Service: 03/13/24 ?? Procedure(s): XR pelvis 1-2V ?? Accession Number(s): [id number] ? cc: Gabe You MD; Shell Lazaro [...] ? DD/ 5 ? TD/TT: 03/14/24835 ? Plant Utilities Engineer: ? Procedure Note Dongabrielleter, Image - 03/14/2024 [place] [address] XRay Report Signed Patient: Vince Calvert#: [id number] 44 : 1980Acct:[id number] Age/Sex: 44 / FADM Date: 03/13/24 Loc: HO.JAMILAAY Attending Dr: Gabe You MD Ordering Physician: Gabe You MD Date of Service: 03/13/24 Procedure(s): XR pelvis 1-2V Accession Number(s): [id number] cc: Gabe You MD; Shell Lazaro MD [...] in OV> 03/14/2437 DD/ 5 TD/TT: 03/14/24835 Plant Utilities Engineer: [facility] External Provider IMG XR PROCEDURES Final Result * XR Knee 3 Views Left (03/14/2024 8:36 AM EST) Anatomical Region Laterality Modality Lower Extremities, Knee Left Radiogra phic Imaging 03/14/2024 8:36 AM EST Narrative 03/14/2024 8:37 AM EST ? [facility] ?[address] ?[place] [address] ?XRay Report ? Signed ? Patient: Calvert,Scarlet ?MR#: [id number] ?? 44 ? : 1980 ?Acct:[id number] ? Age/Sex: 44 / F ?ADM Date: 03/13/24 ? Loc: HO.XRAY ? Attending Dr: Gabe You MD ? Ordering Physician: Gabe You MD ?? Date of Service: 03/13/24 ?? Procedure(s): XR knee LT 3V ?? Accession Number(s): [id number] ? cc: Gabe You MD; Shell Lazaro [...] signed by Randy Marsh MD in OV> ?03/14/24836 ? DD/ 5 ? TD/TT: 03/14/24835 ? Plant Utilities Engineer: ? Procedure Note Kristi, Image - 03/14/[address] [address] JAMILAay Report Signed Patient: Vince Calvert#: [id number] 44 : 1980Acct:[id number] Age/Sex: 44 / FADM Date: 03/13/24 Loc: RADHA Attending Dr: Gabe Yuo MD Ordering Physician: Gabe You MD Date of Service: 03/13/24 Procedure(s): XR knee LT 3V Accession Number(s): [id number] cc: Gabe You MD; Shell Lazaro MD [...] in OV> 03/14/2437 DD/ 5 TD/TT: 03/14/24835 Plant Utilities Engineer: [facility] External Provider IMG XR PROCEDURES Final Result * (ABNORMAL) Sed Rate by Modified Jesusergren (03/13/2024 9:06 AM EST) Pathologist [facility] Erythrocyte Sedimentation Rate 29(H) 0 - 20 MM/HR [facility] Comment:Patients with polycy themia and many hemoglobin abnormalitiesmay have depressed sed rates whereas patients with anemiamay have elevated sed rates. 03/13/2024 9:06 AM EST 03/13/2024 9:06 AM EST Generic External Data Provider LAB BLOOD ORDERAB LES Final Result [facility] [address] [place] [phone] * (ABNORMAL) CBC auto differential (03/13/2024 9:06 AM EST) Pathologist [facility] White Blood Count 7.4 4.8 - 10.8 X10*3/uL [facility] Red Blood Count 4.16(L) 4.20 - 5.50 X10*6/uL [facility] Hemoglobin 11.8(L) 12.0 - 16.0 g/dl [facility] Hematocrit 36.4(L) 37.0 - 47.0 % [facility] Mean Corpuscular Volume 87.5 80.0 - 98.0 fL [facility] Mean Corpuscular Hemoglobin 28.4 27.0 - 33.0 pg [facility] Mean Corpuscular HGB Conc 32.4 31.0 - 35.0 g/dl [facility] Red Cell Distribution Width 14.0 11.0 - 16.0 % [facility] Platelet Count 312 160 - 400 X10*3/uL [facility] Mean Platelet Volume 10.2 9.4 - 12.3 fL [facility] Neutrophils Percent Auto 53.5 45 - 73 % [facility] Imm Gran Pct Auto 0.3 0.0 - 0.4 % [facility] Lymphocytes Percent Auto 32.9 20 - 40 % [facility] Monocytes Percent Auto 10.5 2 - 11 % [facility] Eosinophils Percent Auto 2.3 0 - 4 % [facility] Basophils Percent Auto 0.5 0 - 2 % [facility] NRBC Pct Auto 0.0 0.0 - 0.2 /100WBC [facility] Neutrophils Absolute Auto 4.0 2.0 - 8.3 x10*3/uL [facility] Imm Gran Abs Auto 0.02 0.00 - 0.03 X10*3/uL [facility] Lymphocytes Absolute Auto 2.5 1.2 - 4.9 X10*3/uL [facility] Monocytes Absolute Auto 0.8 0.1 - 1.2 X10*3/uL [facility] Eosinophils Absolute Auto 0.2 0.0 - 0.4 X10*3/uL [facility] Basophils Absolute Auto 0.0 0.0 - 0.2 X10*3/uL [facility] NRBC Abs Auto 0.000 0.0 - 0.012 X10*3/uL [facility] 03/13/2024 9:06 AM EST 03/13/2024 9:06 AM EST us Generic External Data Provider LAB BLOOD ORDERAB LES Final Result [facility] [address] [place] [phone] [phone] documented in this encounter Visit Diagnoses Not on filedocumented in this encounter Additional Health Concerns Assessment Noted Time PHQ-9 Depression Total Score: 11 024 9:26 AM EST documented as of this encounter Care Teams Outreach Clinician Relationship Specialty Start Date End Date Shell Lazaro MD [address] [place] [phone] PCP - General Family Medicine 04/04/13 documented as of this encounter
--- OUTSIDE RECORDS SUMMARY | 2024-03-26 14:23 | XMS_ITS | Encounter Summary ---
Author Organization [employer] Address [address] [place] [address] 7t [place] [address] Care Team Providers Care Correspondence Representative Name Role Phone Shell Lazaro MD Primary Care Provider [phone] Reason for Visit * Reason Onset Date Comments Medication Question 05/07/2023 Encounter Details Date Type Department Care Team ([facility] st Contact Info) Description 05/07/2023 Telephone [facility] & PEDS [address] [place] [address] Shell Lazaro MD [address] [place] [address] Medication Question Social History Tobacco Use Types Packs/Day Years [...] encounter Miscellaneous Notes * Telephone Encounter - Shell Lazaro MD - 05/08/2023 11:23 AM EST Pulmicort sent * Telephone Encounter - Pilar Hagen LPN - 05/07/2023 10:54 AM EST Please review . Can be changed to arnuity * Telephone Encounter - Jannie Riley - 05/07/2023 10:47 AM EST Tc from pharmacy calling in regards to fluticasone (Flovent) 110 MCG/ACT inhaler. States medicationis currently on back order. Due to insurance, will need either an alternative or PA for generic. documented in this encounter Plan of Treatment Not on file documented as of this encounter Visit Diagnoses Not on filedocumented in this encounter Care Teams Correspondence Representative Relationship Specialty Start Date End Date Shell Lazaro MD [address] [place] [phone] PCP - General Family Medicine 04/04/13 documented as of this encounter
--- OUTSIDE RECORDS SUMMARY | 2024-03-26 14:24 | XMS_ITS | Encounter Summary ---
Author Organization [employer] Address [address] [place] [address] [address]t [place] [address] Care Team Providers Care Occupational Therapy Director Name Role Phone Shell Lazaro MD Primary Care Provider [phone] Encounter Details Date Type Department Care Team ([facility] st Contact Info) Description 06/27/2022 Telephone [facility] [address] [place] [address] Shell Lazaro MD [address] [place], [place] [phone] Social History Tobacco Use Types Packs/Day Years Used Date Smoking Tobacco: Every Day Cigarettes Passive Smoke Exposure: Current Smokeless Tobacco: Never Comments Unknown Sex and Gender Information Value Date Recorded Sex Assigned at Female 01/02/2022 10:25 AM EDT Legal Sex Female 10:25 AM EDT Gender Identity Female 01/02/2022 10:25 AM EDT Sexual Orientation Lesbian or Montes 01/02/2022 10 :25 AM EDT COVID-19 Exposure Response Date Recorded In the last 10 days, have yo u been in contact with someone who was confirmed or suspected to have Coronavirus/COVID-19? No / Unsure 06/20/2022 10:14 AM EDT documented as of this encounter Plan of Treatment Not on file documented as of this encounter Visit Diagnoses Not on filedocumented in this encounter Care Teams Occupational Therapy Director Relationship Specialty Start Date End Date Shell Lazaro MD [address] [place] [phone] PCP - General Family Medicine 04/04/13 documented as of this encounter
== END 2024-03-26 13:12 | disposition home or self-care (01) ==
PROVIDERS: PCP Student in an Organized Health Care Education/Training Program; Visit Provider Anesthesiology
DX: M53.3 Sacrococcygeal disorders, not elsewhere classified (principal); M47.814 Spondylosis without myelopathy or radiculopathy, thoracic region; M54.6 Pain in thoracic spine; M06.9 Rheumatoid arthritis, unspecified; M17.12 Unilateral primary osteoarthritis, left knee; M25.562 Pain in left knee; Z96.89 Presence of other specified functional implants; M25.552 Pain in left hip; M16.12 Unilateral primary osteoarthritis, left hip
CPT/HCPCS: 99213

== ENCOUNTER → 2024-03-26 12:34 | Outpatient (BNVA) | payer MEDICAID, SELFPAY | PROVIDERS: PCP Student in an Organized Health Care Education/Training Program; Visit Provider Anesthesiology | DX: M53.3 Sacrococcygeal disorders, not elsewhere classified (principal); M47.814 Spondylosis without myelopathy or radiculopathy, thoracic region; M54.6 Pain in thoracic spine; M06.9 Rheumatoid arthritis, unspecified; M17.12 Unilateral primary osteoarthritis, left knee; M25.552 Pain in left hip; M16.12 Unilateral primary osteoarthritis, left hip; Z96.89 Presence of other specified functional implants | CPT/HCPCS: 99212 ==

== ENCOUNTER 2024-06-13 10:31 | Day surgery (SDC) | payer MEDICAID, SELFPAY ==
--- OUTSIDE RECORDS SUMMARY | 2024-06-05 16:29 | XMS_ITS | Clinical Summary ---
Author Organization [employer] Address [address] [place] [address] 7t [place] [address] Care Team Providers Care Radio Dispatcher Name Role Phone Shell Lazaro MD Primary Care Provider [phone] Allergies Active Allergy Reactions Criticality Noted Date [...] Encounters Date Type Department Care Team Description 05/16/2024 Population Health Risk Score Community [facility] ([facility]) Department [address] [place] [address] [phone] Provider, Population Health Generic 03/13/2024 Orders Only GENERIC EXTERNAL DATA DEPARTMENT Provider, Generic External Data from Last 3 Months Immunizations Name Administration [...] FOBT 1979 HIV Screening 1979 Sigmoidoscopy 1979 Alcohol/Substance Use Screening 1991 Family Planning (PISQ) 1994 Pneumococcal Vaccine: Pediatrics (0 to 5 Years) and At-Risk Patients (6 to 49) Years) (1 of 2 - PCV) 1998 Pap Smear 02/23/2000 Cervical Cancer Screening 04/30/2023 HPV/Cotest 04/30/2023 04/30/2018 Mammogram 08/13/2023 08/12/2021 COVID-19 Vaccine ( season) 2023 04/20/2020, 03/30/2020 SDOH Screening 05/31/2024 06/01/2023 Depression Monitoring (PHQ-9) 07/10/2024 01/11/2024, 01/11/2024 Depression Screening 01/10/2025 01/11/2024, 01/11/20 Tobacco Screening 01/23/2025 01/24/2024 Lipid Panel 10/10/2028 [...] 8:36 AM EST SED RATE BY MODIFIED BEVERLEYERGREN Routine 03/13/2024 9:06 AM EST CBC WITH [...] EST Narrative 03/14/2024 8:37 AM EST ? [facility] ?[address] ?[place] [address] ?XRay Report ? Signed ? Patient: Calvert,Scarlet ?MR#: [id number] ?? 44 ? : 1980 ?Acct:[id number] ? Age/Sex: 44 / F ?ADM Date: 03/13/24 ? Loc: HO.XRAY ? Attending Dr: Gabe You MD ? Ordering Physician: Gbae You MD ?? Date of Service: 03/13/24 ?? Procedure(s): XR pelvis 1-2V ?? Accession Number(s): [id number] ? cc: Gabe You MD; Shell Lazaro [...] DD/ 0836 ? TD/TT: 03/14/24 0836 ? Clinical Coder: ? Procedure Note Dongabrielleter, Image - 03/14/[address] [address] XRay Report Signed Patient: Vince Calvert#: [id number] 44 : 1980Acct:[id number] Age/Sex: 44 / FADM Date: 03/13/24 Loc: HO.[place] Attending Dr: Gabe You MD Ordering Physician: Gabe You MD Date of Service: 03/13/24 Procedure(s): XR pelvis 1-2V Accession Number(s): [id number] cc: Gabe You MD; Shell Lazaro MD [...] in OV> 03/14/2437 DD/ 5 TD/TT: 03/14/24835 Clinical Coder: [facility] External Provider IMG XR PROCEDURES Final Result * XR Knee 3 Views Left (03/14/2024 8:36 AM EST) Anatomical Region Laterality Modality Lower Extremities, Knee Left Radiogra phic Imaging 03/14/2024 8:36 AM EST Narrative 03/14/2024 8:37 AM EST ? [facility] ?[address] ?[place] [address] ?XRay Report ? Signed ? Patient: Calvert,Scarlet ?MR#: [id number] ?? 44 ? : 1980 ?Acct:[id number] ? Age/Sex: 44 / F ?ADM Date: 01/09/25 ? Loc: HO.XRAY ? Attending Dr: Gabe You MD ? Ordering Physician: Gabe You MD ?? Date of Service: 03/13/24 ?? Procedure(s): XR knee LT 3V ?? Accession Number(s): [id number] ? cc: Gabe You MD; Shell Lazaro [...] ? DD/ 5 ? TD/TT: 03/14/24835 ? Clinical Coder: ? Procedure Note Kristi, Image - 03/14/2024 [place] [address] XRay Report Signed Patient: Vince Calvert#: [id number] 44 : 1980Acct:[id number] Age/Sex: 44 / FADM Date: 03/13/24 Loc: RAD[facility] Attending Dr: Gabe You MD Ordering Physician: Gabe You MD Date of Service: 03/13/24 Procedure(s): XR knee LT 3V Accession Number(s): [id number] cc: Gabe You MD; Shell Lazaro MD [...] signed by Randy Marsh MD in OV> 03/14/24836 DD/ 5 TD/TT: 03/14/24835 Clinical Coder: [facility] External Provider IMG XR PROCEDURES Final Result * (ABNORMAL) CBC auto differential (03/13/2024 9:06 AM EST) White Blood Count 7.4 4.8 - 10.8 X10*3/uL [facility] Red Blood Count 4.16(L) 4.20 - 5.50 X10*6/uL [facility] Hemoglobin 11.8(L) 12.0 - 16.0 g/dl [facility] Hematocrit 36.4(L) 37.0 - 47.0 % [facility] Mean Corpuscular Volume 87.5 80.0 - 98.0 fL [facility] Mean Corpuscular Hemoglobin 28.4 27.0 - 33.0 pg [facility] Mean Corpuscular HGB Conc 32.4 31.0 - 35.0 g/dl [facility] Red Cell Distribution Width 14.0 11.0 - 16.0 % [facility] Platelet Count 312 160 - 400 X10*3/uL [facility] Mean Platelet Volume 10.2 9.4 - 12.3 fL [facility] Neutrophils Percent Auto 53.5 45 - 73 % [facility] Imm Gran Pct Auto 0.3 0.0 - 0.4 % [facility] Lymphocytes Percent Auto 32.9 20 - 40 % [facility] Monocytes Percent Auto 10.5 2 - 11 % [facility] Eosinophils Percent Auto 2.3 0 - 4 % [facility] Basophils Percent Auto 0.5 0 - 2 % [facility] NRBC Pct Auto 0.0 0.0 - 0.2 /100WBC [facility] Neutrophils Absolute Auto 4.0 2.0 - 8.3 x10*3/uL [facility] Imm Gran Abs Auto 0.02 0.00 - 0.03 X10*3/uL [facility] Lymphocytes Absolute Auto 2.5 1.2 - 4.9 X10*3/uL [facility] Monocytes Absolute Auto 0.8 0.1 - 1.2 X10*3/uL [facility] Eosinophils Absolute Auto 0.2 0.0 - 0.4 X10*3/uL [facility] Basophils Absolute Auto 0.0 0.0 - 0.2 X10*3/uL [facility] NRBC Abs Auto 0.000 0.0 - 0.012 X10*3/uL [facility] 03/13/2024 9:06 AM EST 03/13/2024 9:06 AM EST Generic External Data Provider LAB BLOOD ORDERAB LES Final Result Performing Organization Address [facility] Co hi Phone Number [facility] [address] [place] [phone] * (ABNORMAL) Sed Rate by Modified Shyamren (03/13/2024 9:06 AM EST) Erythrocyte Sedimentation Rate 29(H) 0 - 20 MM/HR [facility] Comment:Patients with polycy themia and many hemoglobin abnormalitiesmay have depressed sed rates whereas patients with anemiamay have elevated sed rates. 03/13/2024 9:06 AM EST 03/13/2024 9:06 AM EST Generic External Data Provider LAB BLOOD ORDERAB LES Final Result Performing Organization Address [facility] Co de Phone Number [facility] [address] [place] [address] [phone] * (ABNORMAL) Lipid Panel, Standard (10/11/2023 8:07 AM EDT) Triglycerides 142 <150 mg/dL [facility] Comment:Desirable Triglyceri de: less than 150 mg/dLBorderline High Triglyceride 150-199 mg/dLHigh Triglyceride: 200-499 mg/dLVery High Triglyceride: greater than or equal to 5OO mg/dL Cholesterol 184 <200 mg/dL [facility] Comment:Desirable Cholestero l: less than 200 mg/dLBorderline High Cholesterol: 200-239 mg/dLHigh Cholesterol: greater than 239 mg/dL LDL Cholesterol Calculated 120(H) <100 mg/dL [facility] Comment:Desirable LDL: less than 100 mg/dLNear Optimal/Above Optimal LDL: 110- 129 mg/dLBorderline High LDL: 130-159 mg/dLHigh LDL: 160-189 mg/dLVery High LDL: greater than or equal to 190 mg/dL HDL Cholesterol 36(L) >40 mg/dL [facility] Comment:Desirable HDL: great er than 40 mg/dL Note: This HDL assay may give artificially low results in patients with liver disease. Blood Venous blood specimen / Unknown 10/11/2023 8:07 AM EDT 10/11/2023 8:15 AM EDT Shell Lazaro MD LAB BLOOD ORDERABLES Final Resul t Performing Organization Address [facility] Co de Phone Number [facility] [address] [place] [phone] * Hepatitis Panel, General (11/08/2022 12:06 PM EDT) Hepatitis A IgM Nonreactive Nonreactive [facility] Comment:IgM antibodies to GOMEZ V not detected; does not exclude earlyacute or recovered HAV infection. ~Hepatitis B Surface Antibody REACTIVE Nonreactive [facility] Comment:REACTIVE: > 11.99 mI U/mL Hepatitis B Core Antibody Nonreactive Nonreactive [facility] Hepatitis C Antibody Nonreactive Nonreactive [facility] Comment:Antibodies to HCV no t detected; does not exclude early acuteHCV infection. Hepatitis B Surface Ag Negative Negative [facility] 11/08/2022 12:0 6 PM EDT 11/08/2022 12:11 PM EDT [facility] External Provider LAB BLO OD ORDERABLES Final Result [facility] [address] [place] [phone] [phone] * Mammography Report 1 (08/12/2021 10:25 AM EDT) Anatomical Region Laterality Modality Breast Bilateral Mammography 08/12/2021 10:2 5 AM EDT Narrative 09/07/2021 4:14 PM EDT Refer to the Notes tab for result details [facility] Procedure: Mammography Report 1 Procedure Note Provider, MD [place] - 05/28/2022 Refer to the Notes tab for result details [facility] Procedure: Mammography Report 1 Shell Lazaro MD IM BI PROCEDURES Final Result * HPV mRNA E6/E7 (04/30/2018 4:00 PM EST) HPV mRNA E6/E7 Not Detected NOT DETECTED [facility] Comment: This test was performed using the APTIMA(R) HPV Assay ([employer] This assay detects E6/E7 viral messenger RNA (mRNA) from 14 high-risk HPV types (16,18,31,33,35,39,45,51, 52,56,58,59,66,68). For additional information please refer to: http://education.Fanium/faq/GFV995b9 (This link is being provided for informational/ educational purposes only.) The analytical performance characteristics of this assay have been determined by [facility] [place], [place]. The modifications have not been cleared or approved by the FDA. This assay has been validated pursuant to the CLIA regulations and is used for clinical purposes. Test Performed by [facility], [facility] [place], [address] [place], [place] Chon Carrillo M.D., Ph.D., Director of Laboratories , CLIA [id number] Please note: ??Effective 11/15/2015, HPV testing will be performed using [employer]'s APTIMA test which targets mRNA. Detecting mRNA instead of DNA, as in older methods, offers significant improvements in specificity. 04/30/2018 4:00 PM EST Gloria Mcmillan CNM HISTORICAL/NON ORDERABLE LABS Final Result [facility] [address] [place] [phone], from Last 3 Months or Most Recently Relevant to Health Maintenance Insurance Ellie C3 Care Teams Radio Dispatcher Relationship Specialty Start Date End Date Shell Lazaro MD [address] [place] [phone] PCP - General Family Medicine 04/04/13
--- OUTSIDE RECORDS SUMMARY | 2024-06-05 16:29 | XMS_ITS | Encounter Summary ---
Author Organization [employer] Address [address] [place] [address] [address]t [place] [address] Care Team Providers Care Per Diem Registered Nurse Name Role Phone Shell Lazaro MD Primary Care Provider Reason for Visit * Reason Onset Date Comments Medication Question 05/07/2023 Encounter Details Date Type Department Care Team ([facility] st Contact Info) Description 05/07/2023 Telephone [facility] MED & PEDS [address] [place] [address] Shell Lazaro MD [address] [place] [address] Medication Question Social History Tobacco Use Types [...] on filedocumented in this encounter Care Teams Per Diem Registered Nurse Relationship Specialty Start Date End Date Shell Lazaro MD [address] [place] [address] PCP - General Family Medicine 04/04/13 documented as of this encounter
--- OUTSIDE RECORDS SUMMARY | 2024-06-05 16:29 | XMS_ITS | Encounter Summary ---
Author Organization [employer] Address [address] [facility] 7t [place] [address] Care Team Providers Care Striker Out Name Role Phone Shell Lazaro MD Primary Care Provider [phone] Reason for Visit * Reason Onset Date Comments Appointment Request 05/21/2023 Encounter Details Date Type Department Care Team ([facility] st Contact Info) Description 05/21/2023 Telephone [facility] MEDICINE [address] [place] [address] Shell Lazaro MD [address] [place], [place] [phone] Appointment Request Social History Tobacco Use Types [...] on filedocumented in this encounter Care Teams Striker Out Relationship Specialty Start Date End Date Shell Lazaro MD [address] [place] [phone] PCP - General Family Medicine 04/04/13 documented as of this encounter
--- OUTSIDE RECORDS SUMMARY | 2024-06-05 16:30 | XMS_ITS | Encounter Summary ---
Author Organization [employer] Address [address] [place] [address] 7t [place] [address] Care Team Providers Care Industrial Services Worker Name Role Phone Shell Lazaro MD Primary Care Provider [phone] Reason for Visit * Reason Onset Date Comments Nurse Triage 09/13/2022 Encounter Details Date Type Department Care Team ([facility] st Contact Info) Description 09/13/2022 Telephone [facility] MED & PEDS [address] [place] [address] Shell Lazaro MD [address] [place] [address] Nurse Triage Social History Tobacco Use Types [...] and not itchy. Apt with provider in [facility] 09/14 @ 140pm . Pt agrees with [...] accepted this outcome Please contact pt at [phone] documented in this encounter Plan of Treatment Not on file documented as of this encounter Visit Diagnoses Not on filedocumented in this encounter Care Teams Industrial Services Worker Relationship Specialty Start Date End Date Shell Lazaro MD [address] [place] [address] PCP - General Family Medicine 04/04/13 documented as of this encounter
--- OUTSIDE RECORDS SUMMARY | 2024-06-05 16:30 | XMS_ITS | Encounter Summary ---
Author Organization [employer] Address [address] [place] [address] [address] [place] [address] Care Team Providers Care Beam Dyer Name Role Phone Shell Lazaro MD Primary Care Provider [phone] Encounter Details Date Type Department Care Team ([facility] st Contact Info) Description 06/27/2022 Telephone [facility] MEDICINE [address] [place] [address] Shell Lazaro MD [address] [place], [place] [phone] Social History Tobacco Use Types Packs/Day Years [...] on filedocumented in this encounter Care Teams Beam Dyer Relationship Specialty Start Date End Date Shell Lazaro MD [address] [place] [phone] PCP - General Family Medicine 04/04/13 documented as of this encounter
--- OUTSIDE RECORDS SUMMARY | 2024-06-05 16:30 | XMS_ITS | Encounter Summary ---
Author Organization [employer] Address [address] [place] [address] [address]t [place] [address] Care Team Providers Care Critical Care Physician Assistant Name Role Phone Shell Lazaro MD Primary Care Provider [phone] Reason for Visit * Reason Onset Date Comments Referral 09/19/2022 Encounter Details Date Type Department Care Team ([facility] st Contact Info) Description 09/19/2022 Telephone [facility] MEDICINE [address] [place] [address] Shell Lazaro MD [address] [place] [address] Referral Social History Tobacco Use Types Packs/Day [...] requesting a mamogram order to location : [facility] : [facility] [address] [place] [address] Lazaro documented in this encounter Plan of Treatment Not on file documented as of this encounter Visit Diagnoses Not on filedocumented in this encounter Care Teams Critical Care Physician Assistant Relationship Specialty Start Date End Date Shell Lazaro MD [address] [place] [address] [place] [address] PCP - General Family Medicine 04/04/13 documented as of this encounter
--- OUTSIDE RECORDS SUMMARY | 2024-06-05 16:30 | XMS_ITS | Clinical Summary ---
Author Organization [facility] Address [address] [place] [address] Care Team Providers Care Machine Welt Butter Name Role Phone Shell Lazaro MD Primary Care Provider Social History Tobacco Use Types Packs/Day Years [...] age to complete this topic Care Teams Machine Welt Butter Relationship Specialty Start Date End Date Shell Lazaro MD [address] [place] [address] [place] [address] PCP - General Adult Medicine 07/01/20
--- NOTE | 2024-06-12 10:06 | P.CONAN_ITS ---
Documented by User: Dana Simms NP 06/12/24 10:40 HPI - Anesthesia Eval Consult details Narrative: 44yo F for Bilateral Revision Sacroiliac Joint Peripheral nerve Stimulator Per pt, mild NH 2001 d/t htn urgency, no issues since, follows rn community with EKG every few years. No CP/SOB now with activity limited to pain Previous pain procedures with MAC and GA without issue Anesthesia Pre-Procedure Meds Is the patient on any of the following meds?: GLP1/DPP4 PMFSH Active Problems Active Problems: All Active Problems Arthritis of left hip (Acute) Left hip pain (Acute) S/P insertion of spinal cord stimulator (Acute) Left knee pain (Acute) Osteoarthritis of left knee (Acute) Numbness and tingling in left hand (Acute) High risk medication use (Acute) Seronegative arthritis (Acute) Transaminitis (Acute) Trochanteric bursitis of left hip (Acute) Dorsalgia of thoracic region (Acute) Spondylosis, thoracic, without myelopathy (Acute) Lumbar radiculopathy (Acute) Sacroiliac joint pain (Acute) Spinal stenosis of lumbar region (Acute) Morbid obesity (Acute) Carpal tunnel syndrome on left (Acute) Raynaud's disease without gangrene (Acute) Past Medical History Medical History Diabetes GERD (gastroesophageal reflux disease) Depression Migraine Back pain Snores Hx of myocardial infarction Anxiety History of COVID-19 HTN (hypertension) Raynaud's disease without gangrene delivery delivered Family History Family History Other Adopted person Medical history unknown Family history of problems with anesthesia: No Surgical History Surgical History History of reversal of tubal ligation Hx of section History of back surgery Lipoma of arm Carpal tunnel syndrome History of Problems with Anesthesia: No Social History Social History Are you a primary clinical care coordinator to a significant other at home: No Do you presently have visiting nurse or other home services: No Alcohol intake: current Alcohol intake frequency: does not drink Patient Tobacco Use Status: Current someday Tobacco user Tobacco use type: Cigarette Cigarettes Per Day: 3 Years Smoked: 27 Substance Use Type: Marijuana Advance Directives: No Advance Directives Information Provided: Yes Current occupational status: unemployed and other 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[employer] Meds Allergies Allergy/AdvReac Type Severity Reaction Status Date / Time No Known Allergies Allergy Verified 06/13/24 10:46 Home Medications ?Medication ?Instructions ?Recorded ?Confirmed ?Last Taken ?Type lisinopril 40 mg tablet 40 mg PO DAILY 01/21/20 06/13/24 06/13/24 History amlodipine 5 mg tablet 10 mg PO DAILY 04/06/20 06/13/24 06/13/24 History hydrochlorothiazide 25 mg tablet 25 mg PO DAILY 12/07/20 06/13/24 06/13/24 History sertraline 25 mg tablet (Zoloft) 25 mg PO DAILY 04/27/21 06/13/24 10/20/21 History albuterol 90 mcg/actuation aerosol mcg inhalation 12/14/22 03/26/24 06/13/24 History inhaler fluticasone propionate 44 1 puff inhalation BID 12/14/22 06/13/24 Unknown History mcg/actuation HFA aerosol inhaler (Flovent HFA) carvedilol 25 mg tablet 25 mg PO BID 10/15/23 06/13/24 06/13/24 History semaglutide (weight loss) 1 mg/0.5 1 mg subcut QWEEK 02/14/24 06/13/24 Unknown History mL subcutaneous pen injector (Wegovy) Exam Pertinent Lab Results Pertinent Lab Results: Laboratory Tests 03/13/24 09:06 WBC 7.4 Hgb 11.8 L Hct 36.4 L Plt Count 312 Sodium 138 Potassium 4.3 Chloride 108 Carbon Dioxide 23 BUN 16 Creatinine 1.22 Assessment and Plan Assessment Anesthesia Assessment: Chart Reviewed Final Anesthetic Review Family History of Problems with Anesthesia: No History of Problems with Anesthesia: No Documented by User: Yodit Casillas MD 06/13/24 11:05 COUNTS INCLUDE 234 BEDS AT [facility] Past Medical History Medical History Diabetes GERD (gastroesophageal reflux disease) Depression Migraine Back pain Snores Hx of myocardial infarction Anxiety History of COVID-19 HTN (hypertension) Raynaud's disease without gangrene delivery delivered Family History Family History Other Adopted person Medical history unknown Surgical History Surgical History History of reversal of tubal ligation Hx of section History of back surgery Lipoma of arm Carpal tunnel syndrome Social History Social History Are you a primary clinical care coordinator to a significant other at home: No Do you presently have visiting nurse or other home services: No Alcohol intake: current Alcohol intake frequency: does not drink Patient Tobacco Use Status: Current someday Tobacco user Tobacco use type: Cigarette Cigarettes Per Day: 3 Years Smoked: 27 Substance Use Type: Marijuana Advance Directives: No Advance Directives Information Provided: Yes Current occupational status: unemployed and other 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[employer] 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 Allergies Allergy/AdvReac Type Severity Reaction Status Date / Time No Known Allergies Allergy Verified 06/13/24 10:46 Home Medications ?Medication ?Instructions ?Recorded ?Confirmed ?Last Taken ?Type lisinopril 40 mg tablet 40 mg PO DAILY 01/21/20 06/13/24 06/13/24 History amlodipine 5 mg tablet 10 mg PO DAILY 04/06/20 06/13/24 06/13/24 History hydrochlorothiazide 25 mg tablet 25 mg PO DAILY 12/07/20 06/13/24 06/13/24 History sertraline 25 mg tablet (Zoloft) 25 mg PO DAILY 04/27/21 06/13/24 10/20/21 History albuterol 90 mcg/actuation aerosol mcg inhalation 12/14/22 03/26/24 06/13/24 History inhaler fluticasone propionate 44 1 puff inhalation BID 12/14/22 06/13/24 Unknown History mcg/actuation HFA aerosol inhaler (Flovent HFA) carvedilol 25 mg tablet 25 mg PO BID 10/15/23 06/13/24 06/13/24 History semaglutide (weight loss) 1 mg/0.5 1 mg subcut QWEEK 02/14/24 06/13/24 Unknown History mL subcutaneous pen injector (Wegovmatthew) Exam Airway Mallampati Class: II (missing a couple) TM Dist: >3cm Neck ROM: Full Heart: rrr Lungs: cta Assessment and Plan Assessment Anesthesia Assessment: Anesthesia Plan Discussed Final Anesthetic Review NPO: Yes ASA Class: III Final Preanesthetic Review: No Changes in Pt Med Stat, Meds/Allgs Chart Reviewed and Consent Obtained/Reviewed Patient Risk: Intermediate Procedure Risk: Low Anesthetic Plan Anesthetic Plan: MAC: Disposition: Standard PACU
--- NOTE | ~2024-06-13 | FL_ITS ---
EXAMINATION: FL GUIDANCE ONLY HISTORY: REVISION SACROILIAC JOINT PERIPHERAL NERVE STIMULATOR COMPARISON: None available. TECHNIQUE: Fluoroscopy time: 1.0 minutes. Cumulative Dose: 30.99 mGy. DAP: 12.016 mGym2 Images: 4. FINDINGS: Images demonstrate bilateral sacral leads in place. FL/FL guidance in OR IMPRESSION: Fluoroscopy during procedure. Please see procedure report for additional information. Electronically signed by: Bert Conroy MD 06/13/2024 02:12 PM EDT
[2024-06-13 10:44] VITALS: BMI 38.7
[2024-06-13 10:46] LABS: UPreg QC Valid YES; Urine Pregnancy NEGATIVE (NEGATIVE)
[2024-06-13] MEDS: Lactated Ringers 1,000 ML 100 ML IVCONT (10:51)
--- NOTE | 2024-06-13 11:07 | MHC.SHP ---
Pre-Procedural Eval Section A - 24 Hr Update-Section A only Date of Service: 06/13/24 The patient is an INPATIENT: No Changes since office visit: Yes Patient answered all questions The patient has been examined within 24 hours of the surgical procedure. The History & Physical has been completed within 30 days and I have reviewed it.: No Section B - Complete if H&P > 30 days Chief Complaint: Sacrococcygeal disorders, not elsewhere classified Details of Present Illness: as above Relevant Family History (Specify if Yes): No Relevant Social History: None Present Medications: None Medical History: No relevant PMH History of Previous Operations: No relevant previous surgery Allergies: Allergies Allergy/AdvReac Type Severity Reaction Status Date / Time No Known Allergies Allergy Verified 06/13/24 10:46 Review of Systems Sugical H&P ROS: Negative: Constitution, Cardiovascular, Respiratory, Neurological, Psychiatric, Hem-Onc, Allergic/Immunologic, Gastrointestinal, Genitourinary, Musculoskeletal, Integumentary, Endocrine and Eyes/Ears/Nose/Throat Exam Surgical H&P Exam: Normal: HEENT, Normal: Heart, Normal: Lungs, Normal: Extremities, Normal: Abdomen, Normal: Skin and Normal: Neurological Plan Diagnosis/Plan: Unchanged I have reviewed the history and physical and performed a pertinent physical examination on my patient. No changes have occurred unless specified. Time Spent With Patient Time: Total time managing care of this patient today ____ minutes.
[2024-06-13 11:10] VITALS: BP 114/72; PULSE 73; RESP 18; TEMP 36.8; O2SAT 96
[2024-06-13] MEDS: ceFAZolin Sodium/Dextrose,Iso 2 GM/50 ML PIGGYBACK IV (11:50)
--- NOTE | 2024-06-13 14:07 | P.BOP_ITS ---
Brief Operative Note Date of Service: 06/13/24 Pre-op diagnosis: Sacroiliitis bilateral sacroiliac joint dysfunction. Post-op diagnosis: same Procedure: Removal of the malpositioned peripheral nerve stimulator Curonix and reinsertion of the peripheral nerve stimulation chronic sacroiliac joint innervation stimulation Implants: PNS Curonix stimulating leads Surgeon: Gabe You MD Was an Clinical Nurse Educator used for this Procedure?: No Estimated blood loss (mL): 8 Pathology: none sent Condition: stable Disposition: PACU
--- NOTE | 2024-06-13 14:10 | W.PM.OPN ---
Operative Note Operative Note Date of Service: 06/13/24 Narrative: Removal of the malpositioned peripheral nerve stimulator Curonix and reinsertion of the peripheral nerve stimulation Curonix sacroiliac joint innervation stimulation Informed consent was thoroughly explained to the patient before moving her to the operating room.? Risks and benefits were explained and all the questions were answered. Patient ? was taken to the operating room, she was positioned prone on the operating table [employer] monitors were applied and and patient was deeply sedated. Time out was performed delineated correct name and of the patient, site, side and nature of the procedure, risks of DVT and fire, need for antibiotics. Her lower back and buttocks was prepped with ChloraPrep twice, and draped with Full body drape including Ioban film.? Sterilely draped C-arm was brought over the operating field and electrodes of the stimulating leads in the lumbar spine were demonstrated on the screen. In the projection of the stimulating leads in the area of previous scar injection of the local anesthetic lidocaine was performed infiltrating skin and scar. Along the scar tissue 10 blade scalpel was used to make an incision 7 cm long. Dull and sharp dissection was used to locate the antenna of the electrodes and electrodes themselves. After that gentle dragging on tissue and stimulating lead allowed me to withdraw the stimulating leads from their positioned in the subcutaneous tissues in the pelvis. Thorough hemostasis was performed and wound was packed with 4x4s so in irrigation fluid containing vancomycin. After the sq picture of patient's pelvis was demonstrated on the screen.? The projection of the previous scars was infiltrated with local anesthetic lidocaine 2% mixed with ropivacaine 0.5%. Two horizontal incisions 6 cm long each were performed on the skin 3 cm above the projection of the iliac crest to the skin. Before the incision the skin was numbed using mixture of lidocaine 2% and ropivacaine 0.5% 1-1 total of 4 cc. Thorough hemostasis was obtained. After that malleable introducer needle was used to insert through the right incision and advanced to were the sacral ala on the right. After needle met the bone on sacral ala it was redirected slightly posterior and continued to advance alongside the curvature of the sacral bone.? When the tip of the needle reached the end of the projection of the sacroiliac joint inferiorly advancement stops and guitar wire was introduced into the needle.? It went through the needle without difficulties.? After that 4 electrode stimulating array lead was inserted through the needle and advanced to the desired position.? The needle was removed and care was taken not to dislodge the lead.? The driving stylet was removed from the lead and it was replaced with stimulating copper wire antenna electrode. Anchoring device was dislodged on the stimulating lead and advanced to the level of the tissue. It was sutured to the skin using 2 Tycron sutures.? The same manipulation was performed on the left side through the left horizontal incision. The same anchoring device was used to fix the electrode lead to underlying tissues. After that the the hemostasis was checked and wounds were irrigated with normal saline mixed with vancomycin. After that a tunneling devices were used to dislodge both stimulating leads from the horizontal incisions to midline vertical incision. The knots were tied on each of the electrode, the coil was formed above those electrodes and tied using free silk ties . After that the coil was inserted into the wound, and positioned to avoid pressure on the skin. After that irrigation was performed all 3 wounds, 2-0 Polysorb sutures were used to close the wounds and 2-0 Polysorb sutures were used to approximate the skin level jaswinder were applied to the skin level. Bacitracin ointment was applied to each staple line and sterile dressing was applied., stimulating pad was applied and taped to the skin using Medipore tape. Upon completion of the procedure the patient was awaken Transferred on the stretcher, and transferred stable to the recovery room.
[2024-06-13 14:11] VITALS: BP 93/62; PULSE 79; RESP 16; TEMP 36.4; TEMP 36.5; O2SAT 100; O2SAT 98
[2024-06-13] MEDS: Acetaminophen 1,000 MG/100 ML PIGGYBACK 400 MG IV (14:18)
[2024-06-13] MEDS: oxyCODONE HCl Immed Release 5 MG TABLET PO (14:18)
[2024-06-13 14:26] VITALS: BP 99/68; PULSE 76; RESP 16; O2SAT 100
[2024-06-13 14:41] VITALS: BP 106/66; PULSE 68; RESP 16; TEMP 36.4; O2SAT 99
== END 2024-06-13 14:59 | disposition home or self-care (01) ==
PROVIDERS: Nurse Practitioner; PCP Student in an Organized Health Care Education/Training Program; Visit Provider Anesthesiology
PROC: (CPT 64595; principal; 2024-06-13 12:20)
DX: T85.123A Displacement of implanted electronic neurostimulator, generator, initial encounter (principal); Y75.3 Surgical instruments, materials and neurological devices (including sutures) associated with adverse incidents; Y92.9 Unspecified place or not applicable; M46.1 Sacroiliitis, not elsewhere classified; M53.3 Sacrococcygeal disorders, not elsewhere classified; M47.814 Spondylosis without myelopathy or radiculopathy, thoracic region; M54.6 Pain in thoracic spine; I73.00 Raynaud's syndrome without gangrene; M06.9 Rheumatoid arthritis, unspecified; F17.210 Nicotine dependence, cigarettes, uncomplicated; Z96.82 Presence of neurostimulator; E11.9 Type 2 diabetes mellitus without complications; I25.2 Old myocardial infarction; F41.9 Anxiety disorder, unspecified; I10 Essential (primary) hypertension; Z79.85 Long-term (current) use of injectable non-insulin antidiabetic drugs; Z79.899 Other long term (current) drug therapy; Z98.890 Other specified postprocedural states; M17.12 Unilateral primary osteoarthritis, left knee
CPT/HCPCS: 64595; 81025; C1713; C1816; J0131; J0690; J1596; J2003; J2250; J2371; J2704; J2795; J3010; J3370; Q9967

== ENCOUNTER → 2024-06-13 10:31 | Outpatient (BNV) | payer MEDICAID, SELFPAY | PROVIDERS: PCP Student in an Organized Health Care Education/Training Program; Visit Provider Anesthesiology | DX: M46.1 Sacroiliitis, not elsewhere classified (principal); M53.3 Sacrococcygeal disorders, not elsewhere classified; Z96.82 Presence of neurostimulator | CPT/HCPCS: 64595 ==

== ENCOUNTER 2024-06-19 13:54 | Outpatient (AMB) | payer MEDICAID, SELFPAY ==
--- NOTE | 2024-06-19 14:02 | MHC.OFFVIS ---
Vital Signs 06/19/24 14:05 Height 5 ft 4 in Weight 226 lb BMI 38.8 BP 146/76 H Blood Pressure Location Lt brachial Position Sitting Pulse 78 Pulse Source Pulse Oximeter Pulse Oximetry (%) 98 Oxygen Delivery Method Room Air Intake Visit Reasons: S/p B/l SI Innervation PNS REVISION 06/13/24 Intake Note: Pain today 10/12 Animal Physiology Teacher Required: No Accompanied by: Self / Same As Patient Allergies No Known Allergies Allergy (Verified 06/19/24 14:06) HPI Comments Details: Scarlet is back in my office after the revision of the PNS curonix the patient received with me in the past. The procedure was technically very difficult. However we were able to achieve appropriate position of the bilateral stimulation of the curonix PNS . Today the patient came for dressing change. The dressing was removed the wounds are dry no pathological discharge no redness no swelling no tenderness on palpation. The patient reports minor to moderate aching and burning sensation in the projection of the incisions. Today we removed the dressings washed the wounds with ChloraPrep and I applied sterile 4x4s and Tegaderm drape. After that we applied stimulating paddle at the area of the lumbar spine. The cure on X tour sales representative Consuelo was working with the patient today to adjust this new stimulation. She continues to be under care of Dr. Lloyd, she is very satisfied with care Dr. Lloyd it provides for her. Prior diagnostic T11-T12 L1 bilateral medial branch block resulted in complete elimination of the pain for the 1st 5 hours after the procedure.? The pain relieve lasted more than a week after the injection. Obviously we have found her pain generator.? Those are thoracic facet joints.? I offered her steroid injections versus PNS Sprint T12 right following T12 left 1 week after.? She also reports that she has significant hand stiffness in the morning.? His stiffness is lasting 3-4 hours.? This is justified to consider her a rheumatoid arthritis patient.? She is 42 years old and she is primary age for the onset of rheumatoid arthritis.? She was referred to planetarium sky show technician and she was placed on steroids. It is significant dose of steroids with weekly taper. H/o excellent results of stim wave bilateral sacroiliac joint stimulation stim wave/curonics.? she reports excellent pain trial with the device.? She reports excellent pain relief after the implant.? She reports all the pain in the lower back in the projection of the sacroiliac joints is all but gone.? Recently started to experience pain in the thoracic spine as well as pain in the knees bilateral.? Palpation of the thoracic spine in the projection of the approximately T6-T7 T8 spinous processes as well as paraspinal regions is very tender.? She reports limited ability to walk because of this pain.? She reports severe pain with range of motion.? She requests me to perform some injections to help her pain.? I will schedule her for T6-T7 T8 bilateral diagnostic medial branch block.? Possibility exist of treating this pain with sprint PNS.? Alternatively RFA comes to my mind however radiofrequency ablation of the thoracic medial branches considered experimental by most insurances.? The evidence in literature is scant on this procedure as well.? Therapeutic medial branches injections once diagnostic procedures established could be performed if it is desired by the patient.? It has been 6 months since implant of stim wave I do not think there are limitations anymore on steroid medications on this patient.? [facility] Medical History Diabetes GERD (gastroesophageal reflux disease) Depression Migraine Back pain Snores Hx of myocardial infarction Anxiety History of COVID-19 HTN (hypertension) Raynaud's disease without gangrene delivery delivered Surgical History History of reversal of tubal ligation Hx of section History of back surgery Lipoma of arm Carpal tunnel syndrome Family History Other Adopted person Medical history unknown Social History Are you a primary account executive healthcare to a significant other at home: No Do you presently have visiting nurse or other home services: No Alcohol intake: current Alcohol intake frequency: does not drink Patient Tobacco Use Status: Current everyday Tobacco user Tobacco use type: Cigarette Cigarettes Per Day: 3 Years Smoked: 27 Substance Use Type: Marijuana Current occupational status: unemployed and other 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 Review of Systems Const All systems reviewed & are unremarkable except as noted in HPI and below Physical Exam Vital Signs: Last Vital Signs Pulse 78 06/19/24 14:05 BP 146/76 H 06/19/24 14:05 Pulse Ox 98 06/19/24 14:05 Oxygen Delivery Method Room Air 06/19/24 14:05 BMI result Body Mass Index 38.8 Const General: cooperative and no acute distress Orientation/consciousness: patient oriented x3 Resp Effort & Inspection: normal respiratory effort, able to speak in complete sentences and no audible wheezes Back/Spine/Pelvis Other: Tenderness on palpation in paraspinal spinal region of the thoracic spine with most tender point at T7. Paraspinal regions are more tender that midline spinal. Chon test Gaenslen test pelvic compression test pelvic destruction test Stinchfield test all positive bilaterally. SLR is negative. Bilateral normal strength of bilateral lower extremities. Valsalva is negative. Pelvic organ function is intact. Neuro General: patient oriented x3 Assessment & Plan Assessment & Plan (1) Sacroiliac joint pain: Code(s): M53.3 - Sacrococcygeal disorders, not elsewhere classified Category: Medical (2) Spondylosis, thoracic, without myelopathy: Code(s): M47.814 - Spondylosis without myelopathy or radiculopathy, thoracic region Category: Medical (3) Dorsalgia of thoracic region: Code(s): M54.6 - Pain in thoracic spine Category: Medical (4) Rheumatoid arthritis: Code(s): M06.9 - Rheumatoid arthritis, unspecified Category: Medical (5) Osteoarthritis of left knee: Code(s): M17.12 - Unilateral primary osteoarthritis, left knee Category: Medical (6) Left knee pain: Code(s): M25.562 - Pain in left knee Category: Medical (7) S/P insertion of spinal cord stimulator: Code(s): Z96.89 - Presence of other specified functional implants Category: Surgical (8) Left hip pain: Code(s): M25.552 - Pain in left hip Category: Medical (9) Arthritis of left hip: Code(s): M16.12 - Unilateral primary osteoarthritis, left hip Category: Medical Plan H/o good result of PNS stimwave for SI joints pain. Unfortunately patient dislodged her electrodes about 1 year after the implantation. She went for revision on 06/13/2024. The wounds are healing appropriately. We will start stimulation today. I will see her in 1 week to remove the jaswinder. Medications: Refilled oxycodone Partial Fill upon patient request. 5 mg PO Q4H PRN 36 caps 0RF postoperative pain 6 days Coding Level of Care Code Est Pt Level 3 (02331) Diagnoses Sacroiliac joint pain M53.3 Spondylosis, thoracic, without myelopathy M47.814 Dorsalgia of thoracic region M54.6 Rheumatoid arthritis M06.9 Osteoarthritis of left knee M17.12 Left knee pain M25.562 S/P insertion of spinal cord stimulator Z96.89 Left hip pain M25.552 Arthritis of left hip M16.12
[2024-06-19 14:05] VITALS: BP 146/76; PULSE 78; O2SAT 98; BMI 38.8
--- OUTSIDE RECORDS SUMMARY | 2024-06-19 16:59 | XMS_ITS | Clinical Summary ---
Author Organization [facility] Address [address] [place] [address] Care Team Providers Care Director Skills Name Role Phone Shell Lazaro MD Primary Care Provider [phone] Social History Tobacco Use Types Packs/Day Years [...] age to complete this topic Care Teams Director Skills Relationship Specialty Start Date End Date Shell Lazaro MD [address] [place] [address] [place] [address] PCP - General Adult Medicine 07/01/20
--- OUTSIDE RECORDS SUMMARY | 2024-06-19 16:59 | XMS_ITS | Clinical Summary ---
Author Organization [employer] Address [address] [place] [address] [address] [place] [address] Care Team Providers Care Show Girl Name Role Phone Shell Lazaro MD Primary Care Provider [phone] Allergies Active Allergy Reactions Criticality Noted Date [...] Encounters Date Type Department Care Team Description 06/13/2024 Orders Only GENERIC EXTERNAL DATA DEPARTMENT Provider, Generic External Data 05/16/2024 Population Health Risk Score [facility] () Department [address] [place] [id number] Provider, Population Health Generic from Last 3 Months Immunizations Name Administration [...] 03/30/2020 SDOH Screening 05/31/2024 06/01/2023 Depression Monitoring 07/10/2024 01/11/2024, 024 Depression Screening 01/10/2025 01/11/2024, 01/11/20 24 Tobacco [...] Procedure Name Priority Date/Time Associated Diagnosis Comments FL GUIDANCE IN OR Routine 06/13/2024 11: 45 AM EDT HCG, QL, URINE Routine 06/13/2024 10:30 AM EDT LIPID PANEL, STANDARD Routine 10/11/2023 8:07 AM EDT Primary hypertension HEPATITIS PANEL, GENERAL Routine 11/08/2022 12:06 PM EDT MAMMOGRAM GENERIC Routine 08/12/2021 10: 25 AM EDT SHERRIE HISTORICAL HPV MRNA E6/E7 Routine 04/30/2018 4:00 PM EST from Last 3 Months or Most Recently Relevant to Health Maintenance Results * FL Guidance in OR (06/13/2024 11:45 AM EDT) Anatomical Region Laterality Modality X-Ray Angiograph y 06/13/2024 11:4 5 AM EDT Narrative 06/13/2024 2:15 PM EDT ? [facility] ?[address] ?[place] [address] ? Fluoroscopy Report ? Signed ? Patient: Scarlet Calvert ?MR#: [id number] ?? 44 ? : 1980 ?Acct:[id number] ? Age/Sex: 44 / F ?ADM Date: 06/13/24 ? Loc: HO.SSS ? Attending Dr: Gabe You MD ? Ordering Physician: Gabe You MD ?? Date of Service: 06/13/24 ?? Procedure(s): FL guidance in OR ?? Accession Number(s): [id number] ? cc: Gabe You MD; Shell Lazaro MD ? EXAMINATION: ??FL GUIDANCE ONLY ? HISTORY: REVISION SACROILIAC JOINT PERIPHERAL NERVE STIMULATOR ? COMPARISON: ?? None available. ? TECHNIQUE: ?? Fluoroscopy time: 1.0 minutes. ?? Cumulative Dose: 30.99 mGy. ?? DAP: 12.016 mGym2 ?? Images: 4. ? FINDINGS: ?? Images demonstrate bilateral sacral leads in place. ? FL/FL guidance in OR ?? IMPRESSION: ?? Fluoroscopy during procedure. Please see procedure report for ?? additional information. ? Electronically signed by: ??Bert Conroy MD ??06/13/2024 02:12 PM EDT ?? RP ? Dictated By: ?Bert Conroy MD ? Signed By: ?<Electronically signed by Bert Conroy MD in OV> ?06/13/24 1412 ? DD/ 1145 ? TD/TT: 06/13/24 1335 ? Cross Cut Sawyer: ? Procedure Note rKisti, Foster - 06/13/[address] [address] Fluoroscopy Report Signed Patient: Vince Calvert#: [id number] 44 : 1980Acct:[id number] Age/Sex: 44 / FADM Date: 06/13/24 Loc: HO.SSS Attending Dr: Gabe You MD Ordering Physician: Gabe You MD Date of Service: 06/13/24 Procedure(s): FL guidance in OR Accession Number(s): [id number] cc: Gabe You MD; Shell Lazaro MD EXAMINATION: FL GUIDANCE ONLY HISTORY: REVISION SACROILIAC JOINT PERIPHERAL NERVE STIMULATOR COMPARISON: None available. TECHNIQUE: Fluoroscopy time: 1.0 minutes. Cumulative Dose: 30.99 mGy. DAP: 12.016 mGym2 Images: 4. FINDINGS: Images demonstrate bilateral sacral leads in place. FL/FL guidance in OR IMPRESSION: Fluoroscopy during procedure. Please see procedure report for additional information. Electronically signed by: Bert Conroy MD 06/13/2024 02:12 PM EDT Dictated By: Bert Conroy MD Signed By: <Electronically signed by Bert Conroy MD in OV> 06/13/24 1412 DD/ 1145 TD/TT: 06/13/24 1335 Cross Cut Sawyer: [facility] External Provider IMG IR PROCEDURES Final Result * HCG, Qualitative, Urine (06/13/2024 10:30 AM EDT) Urine NEGATIVE NEGATIVE [facility] Comment:This test was develo ped to detect early . Falsenegative results may occur after the 5th - 7th week ofpregnancy when using this test method. If clinicallyindicated, consider a serum hCG. 06/13/2024 10:3 0 AM EDT 06/13/2024 10:40 AM EDT Generic External Data Provider LAB URINE ORDERAB LES Final Result [facility] [address] [place] [address] [phone] * (ABNORMAL) Lipid Panel, Standard (10/11/2023 8:07 AM EDT) Triglycerides 142 <150 mg/dL [facility] Comment:Desirable Triglyceri de: less than 150 mg/dLBorderline High Triglyceride 150-199 mg/dLHigh Triglyceride: 200-499 mg/dLVery High Triglyceride: greater than or equal to 5OO mg/dL Cholesterol 184 <200 mg/dL [facility] Comment:Desirable Cholestero l: less than 200 mg/dLBorderline High Cholesterol: 200-239 mg/dLHigh Cholesterol: greater than 239 mg/dL LDL Cholesterol Calculated 120(H) <100 mg/dL [facility] Comment:Desirable LDL: less than 100 mg/dLNear Optimal/Above Optimal LDL: 110- 129 mg/dLBorderline High LDL: 130-159 mg/dLHigh LDL: 160-189 mg/dLVery High LDL: greater than or equal to 190 mg/dL HDL Cholesterol 36(L) >40 mg/dL [facility] Comment:Desirable HDL: great er than 40 mg/dL Note: This HDL assay may give artificially low results in patients with liver disease. Blood Venous blood specimen / Unknown 10/11/2023 8:07 AM EDT 10/11/2023 8:15 AM EDT us Shell Lazaro MD LAB BLOOD ORDERABLES Final Resul t Performing Organization Address City/[facility]/ZIP Co de Phone Number [facility] [address] [place] [address] [phone] * Hepatitis Panel, General (11/08/2022 12:06 PM EDT) Hepatitis A IgM Nonreactive Nonreactive [facility] Comment:IgM antibodies to GOMEZ V not detected; does not exclude earlyacute or recovered HAV infection. ~Hepatitis B Surface Antibody REACTIVE Nonreactive [facility] Comment:REACTIVE: > 11.99 mI U/mL Hepatitis B Core Antibody Nonreactive Nonreactive [facility] Hepatitis C Antibody Nonreactive Nonreactive [facility] Comment:Antibodies to HCV no t detected; does not exclude early acuteHCV infection. Hepatitis B Surface Ag Negative Negative [facility] 11/08/2022 12:0 6 PM EDT 11/08/2022 12:11 PM EDT [facility] External Provider LAB BLO OD ORDERABLES Final Result [facility] [address] [place] [phone] * Mammography Report 1 (08/12/2021 10:25 AM EDT) Anatomical Region Laterality Modality Breast Bilateral Mammography 08/12/2021 10:2 5 AM EDT Narrative 09/07/2021 4:14 PM EDT Refer to the Notes tab for result details [facility] Procedure: Mammography Report 1 Procedure Note ProviderMarietta MD - 05/28/2022 Refer to the Notes tab for result details [facility] Procedure: Mammography Report 1 Shell Lazaro MD IMG BI PROCEDURES Final Result * HPV mRNA E6/E7 (04/30/2018 4:00 PM EST) HPV mRNA E6/E7 Not Detected NOT DETECTED [facility] Comment: This test was performed using the APTIMA(R) HPV Assay ([employer] This assay detects E6/E7 viral messenger RNA (mRNA) from 14 high-risk HPV types (16,18,31,33,35,39,45,51, 52,56,58,59,66,68). For additional information please refer to: http://education.[employer]/faq/JNY942c2 (This link is being provided for informational/ educational purposes only.) The analytical performance characteristics of this assay have been determined by [employer] [place], [place]. The modifications have not been cleared or approved by the FDA. This assay has been validated pursuant to the CLIA regulations and is used for clinical purposes. Test Performed by [facility], [address] [place] [address] Chon Carrillo M.D., Ph.D., Director of Laboratories , [place] [id number] Please note: ??Effective 11/15/2015, HPV testing will be performed using [employer] APTIMA test which targets mRNA. Detecting mRNA instead of DNA, as in older methods, offers significant improvements in specificity. 04/30/2018 4:00 PM EST us Gloria Mcmillan CNM HISTORICAL/NON ORDERABLE LABS Final Result [facility] [address] from Last 3 Months or Most Recently Relevant to Health Maintenance Insurance [employer] Care Teams Show Girl Relationship Specialty Start Date End Date Shell Lazaro MD [address] [place] [phone] PCP - General Family Medicine 04/04/13
--- OUTSIDE RECORDS SUMMARY | 2024-06-19 16:59 | XMS_ITS | Encounter Summary ---
Author Organization [employer] Address [address] [place] [address] [address] [place] [address] Care Team Providers Care Associate Producer Name Role Phone Shell Lazaro MD Primary Care Provider Reason for Visit * Reason Onset Date Comments Referral 09/19/2022 Encounter Details Date Type Department Care Team ([facility] st Contact Info) Description 09/19/2022 Telephone [facility] [address] [place] [address] Shell Lazaro MD [address] [place] [address] Referral Social History Tobacco Use Types Packs/Day [...] requesting a mamogram order to location : [facility] : [facility]'s [address] [place] [address] Lazaro documented in this encounter Plan of Treatment Not on file documented as of this encounter Visit Diagnoses Not on filedocumented in this encounter Care Teams Associate Producer Relationship Specialty Start Date End Date Shell Lazaro MD [address] [place] [address] [place] [address] PCP - General Family Medicine 04/04/13 documented as of this encounter
--- OUTSIDE RECORDS SUMMARY | 2024-06-19 16:59 | XMS_ITS | Encounter Summary ---
Author Organization [employer] Address [address] [place] [address] [address] [place] [address] Care Team Providers Care Aboriginal Education Worker Coordinator Name Role Phone Shell Lazaro MD Primary Care Provider [phone] Reason for Visit * Reason Onset Date Comments Nurse Triage 09/13/2022 Encounter Details Date Type Department Care Team ([facility] st Contact Info) Description 09/13/2022 Telephone [facility] [address] [place] [address] Shell Lazaro MD [address] [place] [address] Nurse Triage Social History Tobacco Use Types [...] and not itchy. Apt with provider in [facility] 09/14 @ 140pm . Pt agrees with [...] accepted this outcome Please contact pt at [phone] documented in this encounter Plan of Treatment Not on file documented as of this encounter Visit Diagnoses Not on filedocumented in this encounter Care Teams Aboriginal Education Worker Coordinator Relationship Specialty Start Date End Date Shell Lazaro MD [address] [place] [phone] PCP - General Family Medicine 04/04/13 documented as of this encounter
--- OUTSIDE RECORDS SUMMARY | 2024-06-19 16:59 | XMS_ITS | Encounter Summary ---
Author Organization [employer] Address [address] [place] [address] 7t [place] [address] Care Team Providers Care Regulatory Associate Name Role Phone Shell Lazaro MD Primary Care Provider [phone] Reason for Visit * Reason Onset Date Comments Medication Question 05/07/2023 Encounter Details Date Type Department Care Team ([facility] st Contact Info) Description 05/07/2023 Telephone [facility] CHC MED & PEDS [address] [place] [address] Shell Lazaro MD [address] [place] [address] Medication Question Social History Tobacco Use Types [...] on filedocumented in this encounter Care Teams Regulatory Associate Relationship Specialty Start Date End Date Shell Lazaro MD [address] [place] [phone] PCP - General Family Medicine 04/04/13 documented as of this encounter
--- OUTSIDE RECORDS SUMMARY | 2024-06-19 16:59 | XMS_ITS | Encounter Summary ---
Author Organization [employer] Address [address] [facility] 7t [place] [address] Care Team Providers Care Pipeline Integrity Engineer Name Role Phone Shell Lazaro MD Primary Care Provider [phone] Reason for Visit * Reason Onset Date Comments Appointment Request 05/21/2023 Encounter Details Date Type Department Care Team ([facility] st Contact Info) Description 05/21/2023 Telephone [facility] MEDICINE [address] [place] [address] Shell Lazaro MD [address] [place], [place] [phone] Appointment Request Social History Tobacco Use Types [...] on filedocumented in this encounter Care Teams Pipeline Integrity Engineer Relationship Specialty Start Date End Date Shell Lazaro MD [address] [place] [address] PCP - General Family Medicine 04/04/13 documented as of this encounter
--- OUTSIDE RECORDS SUMMARY | 2024-06-19 16:59 | XMS_ITS | Encounter Summary ---
Author Organization [employer] Address [address] [place] [address] 7t [place] [address] Care Team Providers Care Fabrics And Material Cutter Name Role Phone Shell Lazaro MD Primary Care Provider Encounter Details Date Type Department Care Team ([facility] st Contact Info) Description 06/27/2022 Telephone [facility] MEDICINE [address] [place] [address] Shell Lazaro MD [address] [place], [place] [phone] Social History Tobacco Use Types Packs/Day Years [...] on filedocumented in this encounter Care Teams Fabrics And Material Cutter Relationship Specialty Start Date End Date Shell Lazaro MD [address] [place] [address] PCP - General Family Medicine 04/04/13 documented as of this encounter
== END 2024-06-19 14:38 | disposition home or self-care (01) ==
LOC: HO.PMC 13:54
PROVIDERS: PCP Student in an Organized Health Care Education/Training Program; Visit Provider Anesthesiology
DX: M53.3 Sacrococcygeal disorders, not elsewhere classified (principal); M47.814 Spondylosis without myelopathy or radiculopathy, thoracic region; M54.6 Pain in thoracic spine; M06.9 Rheumatoid arthritis, unspecified; M17.12 Unilateral primary osteoarthritis, left knee; M25.562 Pain in left knee; Z96.89 Presence of other specified functional implants; M25.552 Pain in left hip; M16.12 Unilateral primary osteoarthritis, left hip
CPT/HCPCS: 99024

== ENCOUNTER → 2024-06-19 13:54 | Outpatient (BNVA) | payer MEDICAID, SELFPAY | PROVIDERS: PCP Student in an Organized Health Care Education/Training Program; Visit Provider Anesthesiology | DX: M53.3 Sacrococcygeal disorders, not elsewhere classified (principal); M47.814 Spondylosis without myelopathy or radiculopathy, thoracic region; M54.6 Pain in thoracic spine; M06.9 Rheumatoid arthritis, unspecified; M17.12 Unilateral primary osteoarthritis, left knee; M25.552 Pain in left hip; M16.12 Unilateral primary osteoarthritis, left hip; Z96.89 Presence of other specified functional implants | CPT/HCPCS: 99212 ==

== ENCOUNTER 2024-06-26 13:11 | Outpatient (AMB) | payer MEDICAID, SELFPAY ==
--- NOTE | 2024-06-26 13:29 | A.OFFVIS_ITS ---
Vital Signs 06/26/24 13:32 Height 5 ft 4 in Weight 226 lb BMI 38.8 BP 133/87 Blood Pressure Location Lt brachial Position Sitting Pulse 81 Pulse Source Pulse Oximeter Pulse Oximetry (%) 99 Oxygen Delivery Method Room Air Intake Visit Reasons: S/p B/l SI Innerv PNS REVISION 06/13/24 Speed Belt Sander Tender Required: No Accompanied by: Self / Same As Patient Allergies No Known Allergies Allergy (Verified 06/26/24 13:33) HPI Comments Details: Scarlet is back in my office after the revision of the PNS curonix the patient received with me in the past. The procedure was technically very difficult. However we were able to achieve appropriate position of the bilateral stimulation of the curonix PNS . Today the patient came for dressing change. The dressing was removed the wounds are dry no pathological discharge no redness no swelling no tenderness on palpation. The patient reports minor to moderate aching and burning sensation in the projection of the incisions. Today we removed the dressings washed the wounds with ChloraPrep, jaswinder were removed I applied sterile 4x4s and Tegaderm drape. Patient reports stronger stimulation on the left side. The cure on X retail wireless sales representative is working with the patient to decrease her level of stimulation on the left. Counseling was provided to the patient about hygiene limitations activity limitations avoiding heavy lifting and continuation of wearing abdominal binder. No new appointment will be scheduled unless patient desires to. She continues to be under care of Dr. Lloyd, she is very satisfied with care Dr. Lloyd it provides for her. Prior diagnostic T11-T12 L1 bilateral medial branch block resulted in complete e limination of the pain for the 1st 5 hours after the procedure.? The pain relieve lasted more than a week after the injection. Obviously we have found her pain generator.? Those are thoracic facet joints.? I offered her steroid injections versus PNS Sprint T12 right following T12 left 1 week after.? She also reports that she has significant hand stiffness in the morning.? His stiffness is lasting 3-4 hours.? This is justified to consider her a rheumatoid arthritis patient.? She is 42 years old and she is primary age for the onset of rheumatoid arthritis.? She was referred to head operator sulfide and she was placed on steroids. It is significant dose of steroids with weekly taper. H/o excellent results of stim wave bilateral sacroiliac joint stimulation stim wave/curonics.? she reports excellent pain trial with the device.? She reports excellent pain relief after the implant.? She reports all the pain in the lower back in the projection of the sacroiliac joints is all but gone.? Recently started to experience pain in the thoracic spine as well as pain in the knees bilateral.? Palpation of the thoracic spine in the projection of the approximately T6-T7 T8 spinous processes as well as paraspinal regions is very tender.? She reports limited ability to walk because of this pain.? She reports severe pain with range of motion.? She requests me to perform some injections to help her pain.? I will schedule her for T6-T7 T8 bilateral diagnostic medial branch block.? Possibility exist of treating this pain with sprint PNS.? Alternatively RFA comes to my mind however radiofrequency ablation of the thoracic medial branches considered experimental by most insurances.? The evidence in literature is scant on this procedure as well.? Therapeutic medial branches injections once diagnostic procedures established could be performed if it is desired by the patient.? It has been 6 months since implant of stim wave I do not think there are limitations anymore on steroid medications on this patient.? [facility] Medical History Diabetes GERD (gastroesophageal reflux disease) Depression Migraine Back pain Snores Hx of myocardial infarction Anxiety History of COVID-19 HTN (hypertension) Raynaud's disease without gangrene delivery delivered Surgical History History of reversal of tubal ligation Hx of section History of back surgery Lipoma of arm Carpal tunnel syndrome Family History Other Adopted person Medical history unknown Social History Are you a primary nursing care partner to a significant other at home: No Do you presently have visiting nurse or other home services: No Alcohol intake: current Alcohol intake frequency: does not drink Patient Tobacco Use Status: Current everyday Tobacco user Tobacco use type: Cigarette Cigarettes Per Day: 3 Years Smoked: 27 Substance Use Type: Marijuana Current occupational status: unemployed and other 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 Review of Systems Const All systems reviewed & are unremarkable except as noted in HPI and below Physical Exam Vital Signs: Last Vital Signs Pulse 81 06/26/24 13:32 BP 133/87 06/26/24 13:32 Pulse Ox 99 06/26/24 13:32 Oxygen Delivery Method Room Air 06/26/24 13:32 BMI result Body Mass Index 38.8 Const General: cooperative and no acute distress Orientation/consciousness: patient oriented x3 Resp Effort & Inspection: normal respiratory effort, able to speak in complete sentences and no audible wheezes Back/Spine/Pelvis Other: Tenderness on palpation in paraspinal spinal region of the thoracic spine with most tender point at T7. Paraspinal regions are more tender that midline spinal. Chon test Gaenslen test pelvic compression test pelvic destruction test Stinchfield test all positive bilaterally. SLR is negative. Bilateral normal strength of bilateral lower extremities. Valsalva is negative. Pelvic organ function is intact. Neuro General: patient oriented x3 Assessment & Plan Assessment & Plan (1) Sacroiliac joint pain: Code(s): M53.3 - Sacrococcygeal disorders, not elsewhere classified Category: Medical (2) Spondylosis, thoracic, without myelopathy: Code(s): M47.814 - Spondylosis without myelopathy or radiculopathy, thoracic region Category: Medical (3) Dorsalgia of thoracic region: Code(s): M54.6 - Pain in thoracic spine Category: Medical (4) Rheumatoid arthritis: Code(s): M06.9 - Rheumatoid arthritis, unspecified Category: Medical (5) Osteoarthritis of left knee: Code(s): M17.12 - Unilateral primary osteoarthritis, left knee Category: Medical (6) Left knee pain: Code(s): M25.562 - Pain in left knee Category: Medical (7) S/P insertion of spinal cord stimulator: Code(s): Z96.89 - Presence of other specified functional implants Category: Surgical (8) Left hip pain: Code(s): M25.552 - Pain in left hip Category: Medical (9) Arthritis of left hip: Code(s): M16.12 - Unilateral primary osteoarthritis, left hip Category: Medical Plan H/o good result of PNS stimwave for SI joints pain. Unfortunately patient dislodged her electrodes about 1 year after the implantation. She went for revision on 06/13/2024. The wounds are healing appropriately. Nageezi removed today. See as above. Stimulation discussion is as above. Counseling provided to the patient as above. No new appointment. Next appointment is as needed. Coding Level of Care Code Est Pt Level 3 (70671) Diagnoses Sacroiliac joint pain M53.3 Spondylosis, thoracic, without myelopathy M47.814 Dorsalgia of thoracic region M54.6 Rheumatoid arthritis M06.9 Osteoarthritis of left knee M17.12 Left knee pain M25.562 S/P insertion of spinal cord stimulator Z96.89 Left hip pain M25.552 Arthritis of left hip M16.12
[2024-06-26 13:32] VITALS: BP 133/87; PULSE 81; O2SAT 99; BMI 38.8
--- OUTSIDE RECORDS SUMMARY | 2024-06-26 15:31 | XMS_ITS | Clinical Summary ---
Author Organization [employer] Address [address] [place] [address] 7t [place] [address] Care Team Providers Care Lathe Scalper Operator Name Role Phone Shell Lazaro MD Primary Care Provider [phone] Allergies Active Allergy Reactions Criticality Noted Date [...] Encounters Date Type Department Care Team Description 06/20/2024 Telephone [facility] CHC MED & PEDS [address] [place] [address] Shell Lazaro MD 06/13/2024 Orders Only GENERIC EXTERNAL DATA DEPARTMENT Provider, Generic External Data 05/16/2024 Population Health Risk Score [facility] Care [facility] (C3) Department [address] [phone] Provider, Population Health Generic from Last [...] 01/24/2024 9:34 AM EST Plan of Treatment Upcoming Encounters Date Type Department Care Team (Late st Contact Info) Description 07/02/2024 10:45 AM EDT Office Visit [facility] CHC MED & PEDS [address] [place] [address] Shell Lazaro MD [address] [place] [address] Health Maintenance Due Date Last Done Comments [...] 04/20/2020, 03/30/2020 SDOH Screening 05/31/2024 06/01/2023 Depression Screening 01/10/2025 01/11/2024, 01/11/20 24 Tobacco [...] EDT Narrative 06/13/2024 2:15 PM EDT ? [facility] ?[address] ?[place] [address] ? Fluoroscopy Report ? Signed ? Patient: Scarlet Calvert ?MR#: [id number] ?? 44 ? : 1980 ?Acct:[id number] ? Age/Sex: 44 / F ?ADM Date: 06/13/24 ? Loc: HO.SSS ? Attending Dr: Gabe You MD ? Ordering Physician: Gabe You MD ?? Date of Service: 06/13/24 ?? Procedure(s): FL guidance in OR ?? Accession Number(s): [id number] ? cc: Gabe You MD; Shell Lazaro [...] DD/ 1145 ? TD/TT: 06/13/24 1335 ? Dedicated Regional Driver: ? Procedure Note Donotuseinterpreter, Image - 06/13/[address] [address] Fluoroscopy Report Signed Patient: Vince Calvert#: [id number] 44 : 1980Acct:[id number] Age/Sex: 44 / FADM Date: 06/13/24 Loc: .[facility] Attending Dr: Gabe You MD Ordering Physician: Gabe You MD Date of Service: 06/13/24 Procedure(s): FL guidance in OR Accession Number(s): [id number] cc: Gabe You MD; Shell Lazaro MD [...] 06/13/24 1412 DD/ 1145 TD/TT: 06/13/24 1335 Dedicated Regional Driver: [facility] External Provider IMG IR PROCEDURES Final Result * HCG, Qualitative, Urine (06/13/2024 10:30 AM EDT) Urine NEGATIVE NEGATIVE [facility] Comment:This test was develo ped to detect early . Falsenegative results may occur after the 5th - 7th week ofpregnancy when using this test method. If clinicallyindicated, consider a serum hCG. 06/13/2024 10:3 0 AM EDT 06/13/2024 10:40 AM EDT us Generic External Data Provider LAB URINE ORDERAB LES Final Result Performing Organization Address [facility] Co de Phone Number [facility] [address] [place] [phone] * (ABNORMAL) Lipid Panel, Standard (10/11/2023 8:07 AM EDT) Triglycerides 142 <150 mg/dL [facility] Comment:Desirable Triglyceri de: less than 150 mg/dLBorderline High Triglyceride 150-199 mg/dLHigh Triglyceride: 200-499 mg/dLVery High Triglyceride: greater than or equal to 5OO mg/dL Cholesterol 184 <200 mg/dL [facility] Comment:Desirable Cholestero l: less than 200 mg/dLBorderline High Cholesterol: 200-239 mg/dLHigh Cholesterol: greater than 239 mg/dL LDL Cholesterol Calculated 120(H) <100 mg/dL [facility] Comment:Desirable LDL: less than 100 mg/dLNear Optimal/Above Optimal LDL: 110- 129 mg/dLBorderline High LDL: 130-159 mg/dLHigh LDL: 160-189 mg/dLVery High LDL: greater than or equal to 190 mg/dL HDL Cholesterol 36(L) >40 mg/dL [facility] Comment:Desirable HDL: great er than 40 mg/dL Note: This HDL assay may give artificially low results in patients with liver disease. Blood Venous blood specimen / Unknown 10/11/2023 8:07 AM EDT 10/11/2023 8:15 AM EDT us Shell Lazaro MD LAB BLOOD ORDERABLES Final Resul t Performing Organization Address City/[facility]/ZIP Co de Phone Number [facility] [address] [place] [phone] * Hepatitis Panel, General (11/08/2022 12:06 PM EDT) Hepatitis A IgM Nonreactive Nonreactive [facility] Comment:IgM antibodies to GOMEZ V not detected; does not exclude earlyacute or recovered HAV infection. ~Hepatitis B Surface Antibody REACTIVE Nonreactive [facility] Comment:REACTIVE: > 11.99 mI U/mL Hepatitis B Core Antibody Nonreactive Nonreactive [facility] Hepatitis C Antibody Nonreactive Nonreactive [facility] Comment:Antibodies to HCV no t detected; does not exclude early acuteHCV infection. Hepatitis B Surface Ag Negative Negative [facility] 11/08/2022 12:0 6 PM EDT 11/08/2022 12:11 PM EDT [facility] External Provider LAB BLO OD ORDERABLES Final Result [facility] [address] [place] [phone] * Mammography Report 1 (08/12/2021 10:25 [...] was performed using the APTIMA(R) HPV Assay ([employer] This assay detects E6/E7 viral messenger RNA (mRNA) from 14 high-risk HPV types (16,18,31,33,35,39,45,51, 52,56,58,59,66,68). For additional information please refer to: http://education.Swyzzle.Zirtual/faq/EQC341f5 (This link is being provided for informational/ educational purposes only.) The analytical performance characteristics of this assay have been determined by [facility] [place], [place]. The modifications have not been cleared or approved by the FDA. This assay has been validated pursuant to the CLIA regulations and is used for clinical purposes. Test Performed by [employer], [facility] [place], [address] [place] [address] Chon Carrillo M.D., Ph.D., Director of Laboratories , CLIA [id number] Please note: ??Effective 11/15/2015, HPV testing will be performed using [employer]'s APTIMA test which targets mRNA. Detecting mRNA instead of DNA, as in older methods, offers significant improvements in specificity. 04/30/2018 4:00 PM EST Gloria Mcmillan CNM HISTORICAL/NON ORDERABLE LABS Final Result [facility] Anywhere [address] from Last 3 Months or Most Recently Relevant to Health Maintenance [facility] Care Teams Lathe Scalper Operator Relationship Specialty Start Date End Date Shell Lazaro MD [address] [place] [phone] PCP - General Family Medicine 04/04/13
--- OUTSIDE RECORDS SUMMARY | 2024-06-26 15:31 | XMS_ITS | Encounter Summary ---
Author Organization [employer] Address [address] [place] [address] 7t [place] [address] Care Team Providers Care Industrial Analyst Name Role Phone Shell Lazaro MD Primary Care Provider [phone] Reason for Visit * Reason Onset Date Comments Medication Question 05/07/2023 Encounter Details Date Type Department Care Team ([facility] st Contact Info) Description 05/07/2023 Telephone [facility] CHC MED & PEDS [address] [place] [address] Shell Lazaro MD [address] [place] [address] Medication Question Social History Tobacco Use Types [...] to arnuity * Telephone Encounter - Jannie Osvaldo - 05/07/2023 10:47 AM EST Tc from pharmacy calling in regards to fluticasone (Flovent) 110 MCG/ACT inhaler. States medicationis currently on back order. Due to insurance, will need either an alternative or [place] for generic. documented in this encounter Plan of Treatment Upcoming Encounters Date Type Department Care Team (Late st Contact Info) Description 07/02/2024 10:45 AM EDT Office Visit [facility] MED & PEDS [address] [place] [address] Shell Lazaro MD [address] [place] [address] documented as of this encounter Visit Diagnoses Not on filedocumented in this encounter Care Teams Industrial Analyst Relationship Specialty Start Date End Date Shell Lazaro MD [address] [place] [phone] PCP - General Family Medicine 04/04/13 documented as of this encounter
--- OUTSIDE RECORDS SUMMARY | 2024-06-26 15:31 | XMS_ITS | Clinical Summary ---
Author Organization [facility] Address [address] [place] [address] Care Team Providers Care Food Adviser Name Role Phone Shell Lazaro MD Primary [...] age to complete this topic Care Teams Food Adviser Relationship Specialty Start Date End Date Shell Lazaro MD [address] [place] [address] [place] [address] PCP - General Adult Medicine 07/01/20
--- OUTSIDE RECORDS SUMMARY | 2024-06-26 15:31 | XMS_ITS | Encounter Summary ---
Author Organization [employer] Address [address] [place] [address] 7t [place] [address] Care Team Providers Care Green Lumber Grader Name Role Phone Shell Lazaro MD Primary Care Provider [phone] Reason for Visit * Reason Onset Date Comments Nurse Triage 09/13/2022 Encounter Details Date Type Department Care Team ([facility] st Contact Info) Description 09/13/2022 Telephone [facility] MED & PEDS [address] [place] [address] Shell Lazaro MD [address] [place] [address] Nurse Triage Social History Tobacco Use Types [...] and not itchy. Apt with provider in [facility] 09/14 @ 140pm . Pt [...] accepted this outcome Please contact pt at [phone] documented in this encounter Plan of Treatment Upcoming Encounters Date Type Department Care Team (Late st Contact Info) Description 07/02/2024 10:45 AM EDT Office Visit [facility] CHC MED & PEDS [address] [place] [address] Shell Lazaro MD [address] [place] [address] documented as of this encounter Visit Diagnoses Not on filedocumented in this encounter Care Teams Green Lumber Grader Relationship Specialty Start Date End Date Shell Lazaro MD [address] [place] [phone] PCP - General Family Medicine 04/04/13 documented as of this encounter
--- OUTSIDE RECORDS SUMMARY | 2024-06-26 15:31 | XMS_ITS | Encounter Summary ---
Author Organization [employer] Address [address] [facility] 7t [place] [address] Care Team Providers Care Supervisor Garment Manufacturing Name Role Phone Shell Lazaro MD Primary Care Provider Encounter Details Date Type Department Care Team (Late Contact Info) Description 06/27/2022 Telephone [facility] MEDICINE [address] [place], [place] [phone] Shell Lazaro MD [address] [place], [place] [phone] Social History Tobacco Use Types Packs/Day Years [...] as of this encounter Plan of Treatment Upcoming Encounters Date Type Department Care Team (Late Contact Info) Description 07/02/2024 10:45 AM EDT Office Visit [facility] CHC MED & PEDS [address] [place], [place] [phone] Shell Lazaro MD [address] [place], [place] [phone] documented as of this encounter Visit Diagnoses Not on filedocumented in this encounter Care Teams Supervisor Garment Manufacturing Relationship Specialty Start Date End Date Shell Lazaro MD [address] [place] [address] PCP - General Family Medicine 04/04/13 documented as of this encounter
--- OUTSIDE RECORDS SUMMARY | 2024-06-26 15:31 | XMS_ITS | Encounter Summary ---
Author Organization [employer] Address [address] [facility] 7t [place] [address] Care Team Providers Care Heel Slugger Name Role Phone Shell Lazaro MD Primary Care Provider [phone] Reason for Visit * Reason Onset Date Comments Appointment Request 05/21/2023 Encounter Details Date Type Department Care Team ([facility] st Contact Info) Description 05/21/2023 Telephone [facility] MEDICINE [address] [place] [address] Shell Lazaro MD [address] [place], [place] [phone] Appointment Request Social History Tobacco Use Types [...] 10:25 AM EDT Sexual Orientation Lesbian or Mnotes 01/02/2022 10 :25 AM EDT documented as [...] Description 07/02/2024 10:45 AM EDT Office Visit [facility] MED & PEDS [address] [place] [address] Shell Lazaro MD [address] [place] [address] documented as of this encounter Visit Diagnoses Not on filedocumented in this encounter Care Teams Heel Slugger Relationship Specialty Start Date End Date Shell Lazaro MD [address] [place] [address] PCP - General Family Medicine 04/04/13 documented as of this encounter
--- OUTSIDE RECORDS SUMMARY | 2024-06-26 15:31 | XMS_ITS | Encounter Summary ---
Author Organization [employer] Address [address] [place] [address] [address] [place] [address] Care Team Providers Care Edgerman Name Role Phone Shell Lazaro MD Primary Care Provider [phone] Reason for Visit * Reason Onset Date Comments Referral 09/19/2022 Encounter Details Date Type Department Care Team ([facility] st Contact Info) Description 09/19/2022 Telephone [facility] [address] [place] [address] Shell Lazaro MD [address] [place] [address] Referral Social History Tobacco Use Types Packs/Day [...] requesting a mamogram order to location : [facility] [place] : [facility] [address] [place] [address] Lazaro documented in this encounter Plan of Treatment Upcoming Encounters Date Type Department Care Team (Late st Contact Info) Description 07/02/2024 10:45 AM EDT Office Visit [facility] [address] [place] [address] Shell Lazaro MD [address] [place] [address] documented as of this encounter Visit Diagnoses Not on filedocumented in this encounter Care Teams Edgerman Relationship Specialty Start Date End Date Shell Lazaro MD [address] [place] [id number] PCP - General Family Medicine 04/04/13 documented as of this encounter
== END 2024-06-26 13:41 | disposition home or self-care (01) ==
LOC: HO.PMC 13:12
PROVIDERS: PCP Student in an Organized Health Care Education/Training Program; Visit Provider Anesthesiology
DX: M53.3 Sacrococcygeal disorders, not elsewhere classified (principal); M47.814 Spondylosis without myelopathy or radiculopathy, thoracic region; M54.6 Pain in thoracic spine; M06.9 Rheumatoid arthritis, unspecified; M17.12 Unilateral primary osteoarthritis, left knee; M25.562 Pain in left knee; Z96.89 Presence of other specified functional implants; M25.552 Pain in left hip; M16.12 Unilateral primary osteoarthritis, left hip
CPT/HCPCS: 99213

== ENCOUNTER → 2024-06-26 13:11 | Outpatient (BNVA) | payer MEDICAID, SELFPAY | PROVIDERS: PCP Student in an Organized Health Care Education/Training Program; Visit Provider Anesthesiology | DX: M53.3 Sacrococcygeal disorders, not elsewhere classified (principal); M47.814 Spondylosis without myelopathy or radiculopathy, thoracic region; M54.6 Pain in thoracic spine; M06.9 Rheumatoid arthritis, unspecified; M17.12 Unilateral primary osteoarthritis, left knee; M25.562 Pain in left knee; M25.552 Pain in left hip; M16.12 Unilateral primary osteoarthritis, left hip; Z96.89 Presence of other specified functional implants | CPT/HCPCS: 99212 ==

== ENCOUNTER 2025-01-08 15:48 | Outpatient (AMB) | payer MEDICAID, SELFPAY ==
--- OUTSIDE RECORDS SUMMARY | 2025-01-06 10:45 | XMS_ITS | Encounter Summary ---
Author Organization [employer] Address [address] [facility] 7t [place] [address] Care Team Providers Care Monorail Crane Operator Name Role Phone Juan J Holley MD Primary Care Prov ider Encounter Details Date Type Department Care Team (Late st Contact Info) Description 01/06/2025 10:45 AM EST Telemedicine [facility] [address] [place] [address] Juan J Holley MD [address] [place] [address] Chronic bilateral low back pain without sciatica (Primary Dx) Social History Tobacco Use Types Packs/Day Years Used Date Smoking Tobacco: Every Day Cigarettes Passive Smoke Exposure: Current Smokeless Tobacco: Never Alcohol Answer Date Recorded Frequency of Alcohol Consumption Not on file 12/06/2022 Average Number of Drinks Not on file 023 Frequency of Binge Drinking Not on file 06/2022 Score 0 12/06/2022 Depression Answer Date Recorded Patient Health Questionnaire-9 Score 4 01/06/2025 Patient Health Questionnaire-9 Score 4 01/06/2025 Last PHQ-9: Questionnaire Data Not on file 1 03/08/2024 Housing Stability Answer Date Recorded What is your housing situation today? I have tello yates 07/30/[address] you li ve. Do you have problems with any of the following? None of the above 07/30/2024 Food Insecurity Answer Date Recorded Within the past 12 months, y ou worried that your food would run out before you got money to buy more: Never True 07/30/2024 Within the past 12 months,th e food you bought just didn't last and you didn't have enough money to get more: Never True Transportation Answer Date Recorded In the past 12 months, has l ack of transportation kept you from medical appts, meetings, work or from getting things needed for daily living? No 07/30/2024 Utilities Answer Date Recorded In the past 12 months, has t he electric, gas, oil or water company threatened to shut off services in your home? No 07/30/2024 Depression Answer Date Recorded Patient Health Questionnaire-2 Score 4 01/06/2025 Internet Access Answer Date Recorded Internet Access Q1 No 07/30/2024 Internet Access Q2 I do not want or need it 07/04 Comments No Sex and Gender Information Value Date Recorded Sex Assigned at Female 01/02/2022 10:25 AM EDT Legal Sex Female 10:25 AM EDT Gender Identity Female 01/02/2022 10:25 AM EDT Sexual Orientation Lesbian or Montes 01/02/2022 10 :25 AM EDT documented as of this encounter Functional Status * Over the past 2 weeks, how often have you been bothered by any of the following problems? Question Answer Date of Assessment Author Patient Health Questionnaire-2 Score 4 06/2024 10:24 AM Brittney Royal [place] * Little interest or pleasure in doing things Answer Date of Assessment Author More than half the days 01/06/2025 10:24 AM Brittney Royal MA * Feeling down, depressed, or hopeless Answer Date of Assessment Author More than half the days 01/06/2025 10:24 AM Brittney Royal MA * Trouble falling or staying asleep, or sleeping too much Answer Date of Assessment Author Not at all 01/06/2025 10:24 AM Azael Royal MA * Feeling tired or having little energy Answer Date of Assessment Author Not at all 01/06/2025 10:24 AM Azael Royal MA * Poor appetite or overeating Answer Date of Assessment Author Not at all 01/06/2025 10:24 AM Azael Royal MA * Feeling bad about yourself - or that you are a failure or have let yourself or your family down Answer Date of Assessment Author Not at all 01/06/2025 10:24 AM Azael Royal MA * Trouble concentrating on things, such as reading the newspaper or watching television Answer Date of Assessment Author Not at all 01/06/2025 10:24 AM Azael Royal MA * Moving or speaking so slowly that other people could have noticed? Or the opposite - being so fidgety or restless that you have been moving around a lot more than usual. Answer Date of Assessment Author Not at all 01/06/2025 10:24 AM Azael Royal MA * Thoughts that you would be better off or hurting yourself in some way Answer Date of Assessment Author Not at all 01/06/2025 10:24 AM Azael Royal MA * Patient Health Questionnaire-9 Score Answer Date of Assessment Author 4 01/06/2025 10:24 AM Azael Royal MA * How difficult have these problems made it for you to do your work, take care of things at home, or get along with other people? Answer Date of Assessment Author Somewhat difficult 01/06/2025 10:24 AM Brittney Royal MA documented as of this encounter Progress Notes * uJan J Fox MD - 01/06/2025 10:45 AM EST Subjective Patient ID: Scarlet Calvert is a 44 y.o. female who presents for No chief complaint on file.. Back Pain This is a chronic problem. The pain is present in the lumbar spine. The symptoms are aggravated by bending. Associated symptoms include weakness. Pertinent negatives include no abdominal pain, bladder incontinence or bowel incontinence. Review of Systems Gastrointestinal: Negative for abdominal pain and bowel incontinence. Genitourinary: Negative for bladder incontinence. Musculoskeletal: Positive for back pain. Neurological: Positive for weakness. Objective Physical Exam Neurological: General: No focal deficit present. Mental Status: She is oriented to person, place, and time. Psychiatric: Mood and Affect: Mood normal. Behavior: Behavior normal. Assessment/Plan Problem List Items Addressed This Visit Chronic bilateral low back pain without sciatica - Primary Patient has history of back surgery x4, continues with low back pain, was instructed to follow up with charlette for which she has a appointment this week for plans, not interested in PT at the moment, call back as necessary documented in this encounter Miscellaneous Notes * Assessment & Plan Note - Juan J Fox MD - 01/07/2025 11:17 AM ESTAssociated Problem(s): Chronic bilateral low back pain without sciatica Patient has history of back surgery x4, continues with low back pain, was instructed to follow up with charlette for which she has a appointment this week for plans, not interested in PT at the moment, call back as necessary documented in this encounter Plan of Treatment Not on file documented as of this encounter Visit Diagnoses Diagnosis Chronic bilateral low back pain without sciatica- Primary documented in this encounter Additional Health Concerns Assessment Noted Time PHQ-9 Depression Total Score: 4 01/07/20 10:24 AM EST documented as of this encounter Care Teams Monorail Crane Operator Relationship Specialty Start Date End Date Juan J Holley MD [address] [place] [id number] PCP - General Internal Medicine 01/01/25 documented as of this encounter
[2025-01-08 15:50] VITALS: BP 170/99; PULSE 78; RESP 16; O2SAT 99; BMI 39.3
--- NOTE | 2025-01-08 15:50 | MHC.OFFVIS ---
Vital Signs 01/08/25 15:50 Height 5 ft 4 in Weight 229 lb BMI 39.3 BP 170/99 H Blood Pressure Location Rt brachial Position Sitting Respiration 16 Pulse 78 Pulse Source Pulse Oximeter Pulse Oximetry (%) 99 Oxygen Delivery Method Room Air Intake Visit Reasons: FOLLOW UP AFTER FALL Banquet Stewardess Required: No Accompanied by: SPECIAL EDUCATION PROFESSIONAL Allergies No Known Allergies Allergy (Verified 01/08/25 15:54) HPI Comments Details: Scarlet is back in my office 6 months after the revision of the PNS curonix of the sacroiliac joints. The patient reported that recently she felt again and she all again feels that 1 of her leads got dislodged. She requests me to send her for the x-ray. I will send her for pelvic extreme minimum three views. I need to evaluate position of the leads. However at this time I am not sure whether I will be performing yet another revision. The revision of the 1st time was very difficult to perform. The scar tissues prevented me to advance the electrodes freely. I explained to the patient that if she would stopped smoking I would be able to offer her sacroiliac joint fusion. Unfortunately not while she is smoking. I will see this patient in 10 days and I will evaluate the x-ray of the pelvis. Prior: The procedure was technically very difficult. However we were able to achieve appropriate position of the bilateral stimulation of the curonix PNS . Today the patient came for dressing change. The dressing was removed the wounds are dry no pathological discharge no redness no swelling no tenderness on palpation. The patient reports minor to moderate aching and burning sensation in the projection of the incisions. Today we removed the dressings washed the wounds with ChloraPrep, jaswinder were removed I applied sterile 4x4s and Tegaderm drape. Patient reports stronger stimulation on the left side. The cure on X manufacturers service representative is working with the patient to decrease her level of stimulation on the left. Counseling was provided to the patient about hygiene limitations activity limitations avoiding heavy lifting and continuation of wearing abdominal binder. No new appointment will be scheduled unless patient desires to. She continues to be under care of Dr. Lloyd, she is very satisfied with care Dr. Lloyd it provides for her. Prior diagnostic T11-T12 L1 bilateral medial branch block resulted in complete elimination of the pain for the 1st 5 hours after the procedure.? The pain relieve lasted more than a week after the injection. Obviously we have found her pain generator.? Those are thoracic facet joints.? I offered her steroid injections versus PNS Sprint T12 right following T12 left 1 week after.? She also reports that she has significant hand stiffness in the morning.? His stiffness is lasting 3-4 hours.? This is justified to consider her a rheumatoid arthritis patient.? She is 42 years old and she is primary age for the onset of rheumatoid arthritis.? She was referred to radar mechanic and she was placed on steroids. It is significant dose of steroids with weekly taper. H/o excellent results of stim wave bilateral sacroiliac joint stimulation stim wave/[employer].? she reports excellent pain trial with the device.? She reports excellent pain relief after the implant.? She reports all the pain in the lower back in the projection of the sacroiliac joints is all but gone.? Recently started to experience pain in the thoracic spine as well as pain in the knees bilateral.? Palpation of the thoracic spine in the projection of the approximately T6-T7 T8 spinous processes as well as paraspinal regions is very tender.? She reports limited ability to walk because of this pain.? She reports severe pain with range of motion.? She requests me to perform some injections to help her pain.? I will schedule her for T6-T7 T8 bilateral diagnostic medial branch block.? Possibility exist of treating this pain with sprint PNS.? Alternatively RFA comes to my mind however radiofrequency ablation of the thoracic medial branches considered experimental by most insurances.? The evidence in literature is scant on this procedure as well.? Therapeutic medial branches injections once diagnostic procedures established could be performed if it is desired by the patient.? It has been 6 months since implant of stim wave I do not think there are limitations anymore on steroid medications on this patient.? [facility] Medical History Diabetes GERD (gastroesophageal reflux disease) Depression Migraine Back pain Snores Hx of myocardial infarction Anxiety History of COVID-19 HTN (hypertension) Raynaud's disease without gangrene delivery delivered Surgical History History of reversal of tubal ligation Hx of section History of back surgery Lipoma of arm Carpal tunnel syndrome Family History Other Adopted person Medical history unknown Social History Are you a primary customer care team coach to a significant other at home: No Do you presently have visiting nurse or other home services: No Alcohol intake: current Alcohol intake frequency: does not drink Patient Tobacco Use Status: Current everyday Tobacco user Tobacco use type: Cigarette Cigarettes Per Day: 3 Years Smoked: 27 Substance Use Type: Marijuana Current occupational status: unemployed and other 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 Review of Systems Const All systems reviewed & are unremarkable except as noted in HPI and below Physical Exam Vital Signs: Last Vital Signs Pulse 78 01/08/25 15:50 Resp 16 01/08/25 15:50 BP 170/99 H 01/08/25 15:50 Pulse Ox 99 01/08/25 15:50 Oxygen Delivery Method Room Air 01/08/25 15:50 BMI result Body Mass Index 39.3 Const General: cooperative and no acute distress Orientation/consciousness: patient oriented x3 Resp Effort & Inspection: normal respiratory effort, able to speak in complete sentences and no audible wheezes Back/Spine/Pelvis Other: Tenderness on palpation in paraspinal spinal region of the thoracic spine with most tender point at T7. Paraspinal regions are more tender that midline spinal. Chon test Gaenslen test pelvic compression test pelvic destruction test Stinchfield test all positive bilaterally. SLR is negative. Bilateral normal strength of bilateral lower extremities. Valsalva is negative. Pelvic organ function is intact. Neuro General: patient oriented x3 Assessment & Plan Assessment & Plan (1) Sacroiliac joint pain: Code(s): M53.3 - Sacrococcygeal disorders, not elsewhere classified Category: Medical (2) Spondylosis, thoracic, without myelopathy: Code(s): M47.814 - Spondylosis without myelopathy or radiculopathy, thoracic region Category: Medical (3) Dorsalgia of thoracic region: Code(s): M54.6 - Pain in thoracic spine Category: Medical (4) Rheumatoid arthritis: Code(s): M06.9 - Rheumatoid arthritis, unspecified Category: Medical (5) Osteoarthritis of left knee: Code(s): M17.12 - Unilateral primary osteoarthritis, left knee Category: Medical (6) Left knee pain: Code(s): M25.562 - Pain in left knee Category: Medical (7) S/P insertion of spinal cord stimulator: Code(s): Z96.89 - Presence of other specified functional implants Category: Surgical (8) Left hip pain: Code(s): M25.552 - Pain in left hip Category: Medical (9) Arthritis of left hip: Code(s): M16.12 - Unilateral primary osteoarthritis, left hip Category: Medical Plan H/o good result of PNS stimwave for SI joints pain. Unfortunately patient dislodged her electrodes about 1 year after the implantation. She went for revision on 06/13/2024. Now she reports that she feels like she dislodged electrode again because she fell again. I will send her for the x-ray. She requests me to prescribe her gabapentin 800 mg b.i.d.. I will refill this prescription. I will see her in 10 days in this office and I will evaluate the x-ray and then we will decide what to do with her pain. Steroid injections in the past aggravated her pain while diagnostic sacroiliac joint injection was very successful to control her pain for for more than 6 hours. Orders: Orders XR pelvis min 3V Today M53.3 - Sacrococcygeal disorders, not elsewhere classified Medications: Refilled gabapentin 800 mg PO BID 60 tabs 6RF 30 days Coding Level of Care Code Est Pt Level 3 (85558) Diagnoses Sacroiliac joint pain M53.3 Spondylosis, thoracic, without myelopathy M47.814 Dorsalgia of thoracic region M54.6 Rheumatoid arthritis M06.9 Osteoarthritis of left knee M17.12 Left knee pain M25.562 S/P insertion of spinal cord stimulator Z96.89 Left hip pain M25.552 Arthritis of left hip M16.12
--- OUTSIDE RECORDS SUMMARY | 2025-01-08 18:30 | XMS_ITS | Clinical Summary ---
Author Organization [employer] Address [address] [facility] 7t [place] [address] Care Team Providers Care Pharmacy Resident Name Role Phone Juan J Holley MD Primary Care Prov ider Allergies Active Allergy Reactions Criticality Noted Date Comments Acetaminophen Hives 10/31/2019 Oxycodone Shortness of breath,Hives High 10/31/2019 Medications cholecalciferol (Vitamin D-3) 50 MCG (2000 UT) tablet Take by mouth at bed [...] of candidiasis. Do not swallow. 12 g 11 4 Active carvedilol (Coreg) 25 MG tablet Take 1 tablet (25 mg) by mouth at bedtime. 30 tablet 11 4 Active Blood Pressure kitIndications:P rimary hypertension BP check daily 1 kit 4 Active gabapentin (Neurontin) 100 MG capsule TAKE 1 CAPSULE(100 MG) BY MOUTH AT BEDTIME 30 capsule 11 4 Active albuterol (2.5 MG/3ML) 0.083% nebulizer solution Take 3 mL (2.5 mg) by nebulization every 6 (six) hours if needed for wheezing. 75 mL 11 4 025 Active sertraline (Zoloft) 25 MG tablet Take 1 tablet (25 mg) by mouth Once per day. 30 tablet 3 5 026 Active Tirzepatide-Weig ht Management (Zepbound) 2.5 MG/0.5ML solution auto-injector Inject 0.5 mL (2.5 mg) under the skin 1 (one) time per week. 2 mL 3 5 Active Active Problems Problem Noted Date Diagnosed Date Anxiety 07/30/2024 Class 2 severe obesity with serious comorbidity and body mass index (BMI) of 38.0 to 38.9 in adult 01/24/2024 Rheumatoid arthritis (CMS/HCC) 10/05/2023 Raynaud's disease without gangrene 10/05/2023 Chronic [...] bilateral low back pain without sciatica 11/20/2012 Assessment & Plan (01/07/2025 11:17 AM EST): Patient has history of back surgery x4, continues with low back pain, was instructed to follow up with charlette for which she has a appointment this week for plans, not interested in PT at the moment, call back as necessary Encounters Date Type Department Care Team Description 01/06/2025 10:45 AM EST Telemedicine [facility] [address] [place] [address] Juan J Holley MD Chronic bilateral low back pain without sciatica (Primary Dx) 01/06/2025 Travel 01/05/2025 Telephone [facility] [address] [place], [place] [phone] Juan J Holley MD Nurse Triage from Last 3 Months Immunizations Immunization Administration Dates Next Due Hep B, Unspecified [...] Sign Reading Time Taken Comments Blood Pressure 140/100 07/30/2024 8:38 AM EDT manually checked Pulse 69 07/30/2024 8:38 AM EDT Temperature 36.2 C (97.1 F) 07/30/2024 8:38 AM EDT Respiratory Rate 18 07/30/2024 8:38 AM EDT Oxygen Saturation 96% 07/30/2024 8:3 8 AM EDT Inhaled Oxygen Concentration - - Weight 103 kg (226 lb) 07/30/2024 8:38 AM EDT Height 162.6 cm (5' 4 ) 07/30/2024 8:38 AM EDT Body Mass Index 38.79 07/30/2024 8:38 AM EDT Plan of Treatment Health Maintenance Due Date Last Done Comments CT Colonography 1979 Colonoscopy 1979 Colorectal Cancer Screening 1979 FIT DNA/Cologuard 1979 FIT 1979 FOBT 1979 HIV Screening 1979 Sigmoidoscopy 1979 Family Planning (PISQ) 1994 HPV Vaccines (1 - 3-dose series) 1994 Pneumococcal Vaccine: Pediatrics (0 to 5 Years) and At-Risk Patients (6 to 49) Years (1 of 2 - PCV) 1998 Pap Smear 02/23/2000 Cervical Cancer Screening 04/30/2023 HPV/Cotest 04/30/2023 04/30/2018 Mammogram 08/13/2023 08/12/2021 COVID-19 Vaccine (3 - season) 2024 04/20/2020, 03/30/2020 Influenza Vaccine (#1) 2024 , 12/06/2022, 11/28/2016, Additional history exists Disability Screening 07/30/2025 07/30/2024 SDOH Screening 07/30/2025 07/30/2024 Tobacco Screening 07/30/2025 07/30/2024 Alcohol/Substance Use Screening 01/06/2026 01/06/2025 Depression Screening 01/06/2026 01/06/2025, 01/07/20 25 Lipid Panel 10/10/2028 10/11/2023, 06/0 05/2021, 03/14/2021 Zoster Vaccines (1 of 2) 2029 DTaP/Tdap/Td Vaccines (2 - Td or Tdap) 10/04/2033 10/05/2023 RSV Patients and Patients Aged 60 years or older (1 - 1-dose 75+ series) 2054 Hepatitis B Vaccines Completed 11/07/1995, 06/13/1995, 05/11/1995 Hepatitis C Screening Completed 11/08/2022 HIB Vaccines Aged Out No longer eligi ble based on patient's age to complete this topic Hepatitis A Vaccines Aged Out No long er eligible based on patient's age to complete this topic IPV Vaccines Aged Out No longer eligi ble based on patient's age to complete this topic Meningococcal B Vaccine Aged Out No l onger eligible based on patient's age to complete [...] Procedure Name Priority Date/Time Associated Diagnosis Comments LIPID PANEL, STANDARD Routine 10/11/2023 8:07 AM EDT Primary hypertension HEPATITIS PANEL, GENERAL Routine 11/08/2022 12:06 PM EDT MAMMOGRAM GENERIC Routine 08/12/2021 10: 25 AM EDT ZZZ HISTORICAL HPV MRNA E6/E7 Routine 04/30/2018 4:00 PM EST from Last 3 Months or Most Recently Relevant to Health Maintenance Results * (ABNORMAL) Lipid Panel, Standard (10/11/2023 8:07 AM EDT) Triglycerides 142 <150 mg/dL [facility] Comment:Desirable Triglyceri de: less than 150 mg/dLBorderline High Triglyceride 150-199 mg/dLHigh Triglyceride: 200-499 mg/dLVery High Triglyceride: greater than or equal to 5OO mg/dL Cholesterol 184 <200 mg/dL [facility] Comment:Desirable Cholestero l: less than 200 mg/dLBorderline High Cholesterol: 200-239 mg/dLHigh Cholesterol: greater than 239 mg/dL LDL Cholesterol Calculated 120(H) <100 mg/dL [facility] Comment:Desirable LDL: less than 100 mg/dLNear Optimal/Above Optimal LDL: 110- 129 mg/dLBorderline High LDL: 130-159 mg/dLHigh LDL: 160-189 mg/dLVery High LDL: greater than or equal to 190 mg/dL HDL Cholesterol 36(L) >40 mg/dL [facility] Comment:Desirable HDL: great er than 40 mg/dL Note: This HDL assay may give artificially low results in patients with liver disease. Blood Venous blood specimen / Unknown 10/11/2023 8:07 AM EDT 10/11/2023 8:15 AM EDT us Shell Lazaro MD LAB BLOOD ORDERABLES Final Resul t [facility] [address] [place] [address] [phone] * Hepatitis Panel, General (11/08/2022 12:06 PM EDT) Hepatitis A IgM Nonreactive Nonreactive [facility] Comment:IgM antibodies to GOMEZ V not detected; does not exclude earlyacute or recovered HAV infection. ~Hepatitis B Surface Antibody REACTIVE Nonreactive [facility] Comment:REACTIVE: > 11.99 mI U/mL Hepatitis B Core Antibody Nonreactive Nonreactive [facility] Hepatitis C Antibody Nonreactive Nonreactive [facility] Comment:Antibodies to HCV no t detected; does not exclude early acuteHCV infection. Hepatitis B Surface Ag Negative Negative [facility] 11/08/2022 12:0 6 PM EDT 11/08/2022 12:11 PM EDT [facility] External Provider LAB BLO OD ORDERABLES Final Result [facility] [address] [place] [phone] * Mammography Report 1 (08/12/2021 10:25 [...] HPV mRNA E6/E7 Not Detected NOT DETECTED [facility] Comment: This test was performed using the APTIMA(R) HPV Assay ([employer] This assay detects E6/E7 viral messenger RNA (mRNA) from 14 high-risk HPV types (16,18,31,33,35,39,45,51, 52,56,58,59,66,68). For additional information please refer to: http://education.S&N Airoflo/faq/SOK008r7 (This link is being provided for informational/ educational purposes only.) The analytical performance characteristics of this assay have been determined by [facility] [place], [place]. The modifications have not been cleared or approved by the FDA. This assay has been validated pursuant to the CLIA regulations and is used for clinical purposes. Test Performed by [facility], [facility], [address] [place] [address] Chon Carrillo M.D., Ph.D., Director of Laboratories , CLIA [id number] Please note: Effective 11/15/2015, HPV testing will be performed using [employer]'s APTIMA test which targets mRNA. Detecting mRNA instead of DNA, as in older methods, offers significant improvements in specificity. 04/30/2018 4:00 PM EST Gloria Mcmillan CNM HISTORICAL/NON ORDERABLE LABS Final Result [facility] [address] from Last 3 Months or Most Recently Relevant to Health Maintenance [place] [address] [place] [address] C3 Care Teams Pharmacy Resident Relationship Specialty Start Date End Date Juan J Holley MD [address] [place] [phone] PCP - General Internal Medicine 01/01/25
--- OUTSIDE RECORDS SUMMARY | 2025-01-08 18:30 | XMS_ITS | Encounter Summary ---
Author Organization [employer] Address [address] [facility] 7t [place] [address] Care Team Providers Care Tool Room Supervisor Name Role Phone Juan J Holley MD Primary Care Prov ider Encounter Details Date Type Department Care Team (Latest Contact Info) Description 01/06/2025 Travel Social History Tobacco Use Types Packs/Day Years [...] [place] documented as of this encounter Plan of Treatment Not on file documented as of this encounter Visit Diagnoses Not on filedocumented in this encounter Additional Health Concerns Assessment Noted Time PHQ-9 Depression Total Score: 4 01/07/20 10:24 AM EST documented as of this encounter Care Teams Tool Room Supervisor Relationship Specialty Start Date End Date Juan J Holley MD [address] [place] [phone] PCP - General Internal Medicine 01/01/25 documented as of this encounter
--- OUTSIDE RECORDS SUMMARY | 2025-01-08 18:30 | XMS_ITS | Encounter Summary ---
Author Organization [employer] Address [address] [facility] 7t [place] [address] Care Team Providers Care Humidifier Attendant Name Role Phone Shell Lazaro MD Primary Care Provider [phone] Juan J Holley MD Primary Care Prov ider Reason for Visit * Reason Onset Date Comments Appointment Request 07/01/2024 Encounter Details Date Type Department Care Team ([facility] st Contact Info) Description 07/01/2024 Telephone [facility] [address] [place] [address] Shell Lazaro MD [address] [place] [address] Appointment Request Social History Tobacco Use Types [...] encounter Miscellaneous Notes * Telephone Encounter - Brigido White - 07/01/2024 10:56 AM EDT TC from pt requesting a appt with PCP for a Follow Up after pt got Surgery Done. Contact pt at [phone] documented in this encounter Plan of Treatment Not on file documented as of this encounter Visit Diagnoses Not on filedocumented in this encounter Additional Health Concerns Assessment Noted Time PHQ-9 Depression Total Score: 11 024 9:26 AM EST documented as of this encounter Care Teams Humidifier Attendant Relationship Specialty Start Date End Date Shell Lazaro MD [address] [place] [phone] PCP - General Family Medicine 04/04/13 12/31/24 Juan J Holley MD [address] [place] [phone] PCP - General Internal Medicine 01/01/25 documented as of this encounter
--- OUTSIDE RECORDS SUMMARY | 2025-01-08 18:30 | XMS_ITS | Encounter Summary ---
Author Organization [employer] Address [address] [facility] 7t [place] [address] Care Team Providers Care Coffee Shop Aide Name Role Phone Shell Lazaro MD Primary Care Provider [phone] Juan J Holley MD Primary Care Prov ider Reason for Visit * Reason Onset Date Comments Appointment Request 05/21/2023 Encounter Details Date Type Department Care Team (Late st Contact Info) Description 05/21/2023 Telephone [facility] [address] [place] [address] Shell Lazaro MD [address] [place] [address] Appointment Request Social History Tobacco Use Types [...] on filedocumented in this encounter Care Teams Coffee Shop Aide Relationship Specialty Start Date End Date Shell Lazaro MD [address] [place] [address] PCP - General Family Medicine 04/04/13 12/31/24 Juan J Holley MD [address] [place] [phone] PCP - General Internal Medicine 01/01/25 documented as of this encounter
--- OUTSIDE RECORDS SUMMARY | 2025-01-08 18:30 | XMS_ITS | Clinical Summary ---
Author Organization [facility] Address [address] [place] [address] Care Team Providers Care Silverware Buffer Name Role Phone Shell Lazaro MD Primary Care Provider [phone] Social History Tobacco Use Types Packs/Day Years [...] Cervical Cancer Screening (P ap Smear) 02/23/2000 Colon Cancer Screening (Colonoscopy) 02/23/2024 Influenza Vaccine (#1) 2024 Pneumococcal Vaccine Aged Out No long er eligible based on patient's age to complete this topic RSV Ped < 20 months Aged Out No longe r eligible based on patient's age to complete this topic Care Teams Silverware Buffer Relationship Specialty Start Date End Date Shell Lazaro MD [address] [place] [address] [place] [address] PCP - General Adult Medicine 07/01/20
--- OUTSIDE RECORDS SUMMARY | 2025-01-08 18:30 | XMS_ITS | Encounter Summary ---
Author Organization [employer] Address [address] [facility] 7t [place] [address] Care Team Providers Care Blueprint Cutter Name Role Phone Shell Lazaro MD Primary Care Provider [phone] Juan J Holley MD Primary Care Prov ider Encounter Details Date Type Department Care Team (Late st Contact Info) Description 06/27/2022 Telephone [facility] MED[facility] [address] [place] [address] Shell Lazaro MD [address] [place], [place] [phone] Social History Tobacco Use Types Packs/Day Years [...] on filedocumented in this encounter Care Teams Blueprint Cutter Relationship Specialty Start Date End Date Shell Lazaro MD [address] [place] [address] PCP - General Family Medicine 04/04/13 12/31/24 Juan J Holley MD [address] [place] [address] PCP - General Internal Medicine 01/01/25 documented as of this encounter
--- OUTSIDE RECORDS SUMMARY | 2025-01-08 18:30 | XMS_ITS | Encounter Summary ---
Author Organization [employer] Address [address] [facility] 7t [place] [address] Care Team Providers Care Chief Reservoir Engineering Name Role Phone Shell Lazaro MD Primary Care Provider [phone] Juan J Holley MD Primary Care Prov ider Reason for Visit * Reason Onset Date Comments Medication Question 05/07/2023 Encounter Details Date Type Department Care Team ([facility] st Contact Info) Description 05/07/2023 Telephone [facility] [address] [place] [address] Shell Lazaro MD [address] [place] [address] Medication Question Social History Tobacco Use Types [...] on filedocumented in this encounter Care Teams Chief Reservoir Engineering Relationship Specialty Start Date End Date Shell Lazaro MD [address] [place] [address] PCP - General Family Medicine 04/04/13 12/31/24 Juan J Holley MD [address] [place] [phone] PCP - General Internal Medicine 01/01/25 documented as of this encounter
--- OUTSIDE RECORDS SUMMARY | 2025-01-08 18:30 | XMS_ITS | Encounter Summary ---
Author Organization [employer] Address [address] [facility] 7t [place] [address] Care Team Providers Care Paper Finisher Name Role Phone Juan J Holley MD Primary Care Prov ider Reason for Visit * Reason Onset Date Comments Nurse Triage 01/05/2025 Encounter Details Date Type Department Care Team ([facility] st Contact Info) Description 01/05/2025 Telephone [facility] MED[facility]INE [address] [place] [address] Juan J Holley MD [address] [place], [place] [phone] Nurse Triage Social History Tobacco Use Types [...] encounter Miscellaneous Notes * Telephone Encounter - Melisa Boone RN - 01/05/2025 1:26 PM EST called pt to triage, spoke to pt. Pt states low back pain with leg weakness chronically, not improving. pt states has had multiple surgeries and revisions which have not helped much. pt states has a neuro stimulator in her spine and this does not help either. pt reports falling now which she has not done in a while and is concerned. pt states is afraid to go back to the neurosurgeon because she does not want more surgeries. pt denies significant injuries from falls, inability to stand or walk, or other associated symptoms. given TC appt tomorrow with PCP at 10:45 to discuss options. advised home care: rest, ice, heat, OTC as needed and call back if worsening or new concerns. pt understands a nd agrees with plan. Protocol Used: Back Pain (Adult) Protocol-Based Disposition: See in Office or Video Visit within 3 Days Video visit offer not recorded Positive Triage Question: * Patient wants to be seen * All higher-acuity triage questions were negative Care Advice Discussed: * Reassurance and Education - Back Pain * Cold or Heat * Sleep * Continue Activity * Pain Medicines * Reasons To Call Back - Severe pain not better after taking pain medicines - Moderate pain (interferes with normal activities) lasts over 3 days - Pain begins to shoot into the leg - Pain lasts over 2 weeks - Fever occurs - Numbness or weakness occurs - Loss of control of your bladder or bowel - You become worse * Telephone Encounter - Herve Macias - 01/05/2025 12:21 PM EST Tc from pt returning call regarding prior message. Contact pt at [phone] * Telephone Encounter - Anabella Abbasi RN - 01/05/2025 11:30 AM EST TC to patient x 2 to triage. No answer. Message left to contact office PRN. * Telephone Encounter - Anabella Abbasi RN - 01/05/2025 11:12 AM EST Tc to patient to triage. No answer x 1. Left message to call office. Will re- attempt in 15 min. * Telephone Encounter - Li Fuentes - 01/05/2025 10:47 AM EST TC from pt stated that has been having 4 times back surgery but pt still having no progress. Dosentknow what else to do. Pt falling and said is not normal. PCP Dr. Mena documented in this encounter Plan of Treatment Not on file documented as of this encounter Visit Diagnoses Not on filedocumented in this encounter Additional Health Concerns Assessment Noted Time PHQ-9 Depression Total Score: 11 024 9:26 AM EST documented as of this encounter Care Teams Paper Finisher Relationship Specialty Start Date End Date Juan J Holley MD [address] [place] [phone] PCP - General Internal Medicine 01/01/25 documented as of this encounter
--- OUTSIDE RECORDS SUMMARY | 2025-01-08 18:31 | XMS_ITS | Encounter Summary ---
Author Organization [employer] Address [address] [facility] 7t [place] [address] Care Team Providers Care Die Casting Machine Maintainer Name Role Phone Shell Lazaro MD Primary Care Provider [phone] Juan J Holley MD Primary Care Prov ider Reason for Visit * Reason Onset Date Comments Nurse Triage 09/13/2022 Encounter Details Date Type Department Care Team (Late st Contact Info) Description 09/13/2022 Telephone [facility] MED & PEDS [address] [place] [address] Shell Lazaro MD [address] [place] [address] Nurse Triage Social History Tobacco Use Types [...] and not itchy. Apt with provider in [facility] 09/14 @ 140pm . Pt agrees [...] accepted this outcome Please contact pt at [phone] documented in this encounter Plan of Treatment Not on file documented as of this encounter Visit Diagnoses Not on filedocumented in this encounter Care Teams Die Casting Machine Maintainer Relationship Specialty Start Date End Date Shell Lazaro MD [address] [place] [address] PCP - General Family Medicine 04/04/13 12/31/24 Juan J Holley MD [address] [place] [phone] PCP - General Internal Medicine 01/01/25 documented as of this encounter
--- OUTSIDE RECORDS SUMMARY | 2025-01-08 18:31 | XMS_ITS | Encounter Summary ---
Author Organization [employer] Address [address] [facility] 7t [place] [address] Care Team Providers Care Rn Documentation Name Role Phone Shell Lazaro MD Primary Care Provider Juan J Holley MD Primary Care Prov ider Reason for Visit * Reason Onset Date Comments Referral 09/19/2022 Encounter Details Date Type Department Care Team (Late st Contact Info) Description 09/19/2022 Telephone [facility] MEDICINE [address] [place] [address] Shell Lazaro MD [address] [place] [address] Referral Social History Tobacco Use Types Packs/Day [...] to location : [facility] : [facility] [address] [place] [address] Lazaro documented in this encounter Plan of Treatment Not on file documented as of this encounter Visit Diagnoses Not on filedocumented in this encounter Care Teams Rn Documentation Relationship Specialty Start Date End Date Shell Lazaro MD [address] [place] [phone] PCP - General Family Medicine 04/04/13 12/31/24 Juan J Holley MD [address] [place] [address] PCP - General Internal Medicine 01/01/25 documented as of this encounter
== END 2025-01-08 16:08 | disposition home or self-care (01) ==
PROVIDERS: PCP Student in an Organized Health Care Education/Training Program; Visit Provider Anesthesiology
DX: M53.3 Sacrococcygeal disorders, not elsewhere classified (principal); M47.814 Spondylosis without myelopathy or radiculopathy, thoracic region; M54.6 Pain in thoracic spine; M06.09 Rheumatoid arthritis without rheumatoid factor, multiple sites; M17.12 Unilateral primary osteoarthritis, left knee; M25.562 Pain in left knee; Z96.89 Presence of other specified functional implants; M25.552 Pain in left hip; M16.12 Unilateral primary osteoarthritis, left hip
CPT/HCPCS: 99213

== ENCOUNTER → 2025-01-08 15:48 | Outpatient (BNVA) | payer MEDICAID, SELFPAY | PROVIDERS: PCP Student in an Organized Health Care Education/Training Program; Visit Provider Anesthesiology | DX: M53.3 Sacrococcygeal disorders, not elsewhere classified (principal); M47.814 Spondylosis without myelopathy or radiculopathy, thoracic region; M54.6 Pain in thoracic spine; M06.09 Rheumatoid arthritis without rheumatoid factor, multiple sites; M17.12 Unilateral primary osteoarthritis, left knee; M25.562 Pain in left knee; M25.552 Pain in left hip; M16.12 Unilateral primary osteoarthritis, left hip; Z96.89 Presence of other specified functional implants | CPT/HCPCS: 99212 ==

== ENCOUNTER 2025-01-10 09:40 | Outpatient (REF) | payer MEDICAID, SELFPAY ==
--- OUTSIDE RECORDS SUMMARY | 2025-01-06 10:45 | XMS_ITS | Encounter Summary ---
Author Organization [employer] Address [address] [facility] 7[address] [place] [address] Care Team Providers Care Opener Verifier Packer Customs Name Role Phone Juan J Holley MD Primary Care Prov ider Encounter Details Date Type Department Care Team (Late st Contact Info) Description 01/06/2025 10:45 AM EST Telemedicine [facility] [address] [place] [address] Juan J Holley MD [address] [place] [address] Chronic bilateral low back pain without sciatica [...] as of this encounter Progress Notes * Juan J Fox MD - 01/06/2025 10:45 AM [...] documented as of this encounter Care Teams Opener Verifier [employer] Relationship Specialty Start Date End Date Juan J Holley MD [address] [place] [id number] PCP - General Internal Medicine 01/01/25 documented as of this encounter
--- NOTE | ~2025-01-10 | XR_ITS ---
EXAMINATION: XR PELVIS CLINICAL INFORMATION: M53.3 - Sacrococcygeal disorders, not elsewhere classified COMPARISON: March 13, 2024. TECHNIQUE: AP and lateral views FINDINGS: There are II nerve stimulator electrodes placed via posterior approach overlapping the right lateral hilar sacrum and the inner aspect of the sacroiliac joints likely lateral on the right side. The lateral projection demonstrates at the level of S4 and sacrococcyx junction. No acute fracture or listhesis. Multilevel spondylosis, axial skeleton. No lytic or blastic lesions. XR/XR pelvis min 3V IMPRESSION: Two nerve stimulator electrodes placed at that the S4 and sacrococcyx levels. Electronically signed by: Romero Lechuga MD 01/12/2025 09:07 AM ANTWAN
--- OUTSIDE RECORDS SUMMARY | 2025-01-10 09:45 | XMS_ITS | Clinical Summary ---
Author Organization [facility] Address [address] [place] [address] Care Team Providers Care Foot Specialist Name Role Phone Shell Lazaro MD Primary Care Provider [phone] Social History Tobacco Use Types Packs/Day Years [...] age to complete this topic Care Teams Foot Specialist Relationship Specialty Start Date End Date Shell Lazaro MD [address] [place] [address] [place] [phone] PCP - General Adult Medicine 07/01/20
--- OUTSIDE RECORDS SUMMARY | 2025-01-10 09:46 | XMS_ITS | Clinical Summary ---
Author Organization [employer] Address 75 [facility] 7t [place] [address] Care Team Providers Care Fitness And Wellness Instructor Name Role Phone Juan J Holley MD [...] Team Description 01/06/2025 10:45 AM EST Telemedicine [facility] [address] [place] [address] Juan J Holley MD Chronic bilateral low back pain without sciatica (Primary Dx) 01/06/2025 Travel 01/05/2025 Telephone [facility] MEDICINE [address] [place], [place] [phone] Juan J Holley MD Nurse Triage from [...] 8:07 AM EDT) Triglycerides 142 <150 mg/dL [facility] Comment:Desirable Triglyceri de: less than 150 mg/dLBorderline High Triglyceride 150-199 mg/dLHigh Triglyceride: 200-499 mg/dLVery High Triglyceride: greater than or equal to 5OO mg/dL Cholesterol 184 <200 mg/dL [facility] Comment:Desirable Cholestero l: less than 200 mg/dLBorderline High Cholesterol: 200-239 mg/dLHigh Cholesterol: greater than 239 mg/dL LDL Cholesterol Calculated 120(H) <100 mg/dL [facility] Comment:Desirable LDL: less than 100 mg/dLNear Optimal/Above Optimal LDL: 110- 129 mg/dLBorderline High LDL: 130-159 mg/dLHigh LDL: 160-189 mg/dLVery High LDL: greater than or equal to 190 mg/dL HDL Cholesterol 36(L) >40 mg/dL [facility] Comment:Desirable HDL: great er than 40 mg/dL Note: This HDL assay may give artificially low results in patients with liver disease. Blood Venous blood specimen / Unknown 10/11/2023 8:07 AM EDT 10/11/2023 8:15 AM EDT us Shell Lazaro MD LAB BLOOD ORDERABLES Final Resul t [facility] [address] [place] [address] [phone] * Hepatitis Panel, General (11/08/2022 12:06 PM EDT) Hepatitis A IgM Nonreactive Nonreactive [facility] Comment:IgM antibodies to GOMEZ V not detected; does not exclude earlyacute or recovered HAV infection. ~Hepatitis B Surface Antibody REACTIVE Nonreactive [facility] Comment:REACTIVE: > 11.99 mI U/mL Hepatitis B Core Antibody Nonreactive Nonreactive [facility] Hepatitis C Antibody Nonreactive Nonreactive [facility] Comment:Antibodies to HCV no t detected; does not exclude early acuteHCV infection. Hepatitis B Surface Ag Negative Negative [facility] 11/08/2022 12:0 6 PM EDT 11/08/2022 12:11 PM EDT [facility] External Provider LAB BLO OD ORDERABLES Final Result [facility] [address] [place] [phone] * Mammography Report 1 (08/12/2021 10:25 [...] HPV mRNA E6/E7 Not Detected NOT DETECTED [facility] Comment: This test was performed using the APTIMA(R) HPV Assay ([employer] This assay detects E6/E7 viral messenger RNA (mRNA) from 14 high-risk HPV types (16,18,31,33,35,39,45,51, 52,56,58,59,66,68). For additional information please refer to: http://education.MeetMoi/faq/DPE210p6 (This link is being provided for informational/ educational purposes only.) The analytical performance characteristics of this assay have been determined by [employer] [place], [place]. The modifications have not been cleared or approved by the FDA. This assay has been validated pursuant to the CLIA regulations and is used for clinical purposes. Test Performed by [facility], [employer] [place], [address] [place] [address] Chon Carrillo M.D., Ph.D., Director of Laboratories , CLIA [id number] Please note: Effective 11/15/2015, HPV testing will be performed using [employer]'s APTIMA test which targets mRNA. Detecting mRNA instead of DNA, as in older methods, offers significant improvements in specificity. 04/30/2018 4:00 PM EST Gloria Mcmillan CNM HISTORICAL/NON ORDERABLE LABS Final Result [facility] Anywhere [address] from Last 3 Months or Most Recently Relevant to Health Maintenance [place] [address] [place] [address] C3 Care Teams Fitness And Wellness Instructor Relationship Specialty Start Date End Date Juan J Holley MD [address] [place] [phone] PCP - General Internal Medicine 01/01/25
--- OUTSIDE RECORDS SUMMARY | 2025-01-10 09:46 | XMS_ITS | Encounter Summary ---
Author Organization [employer] Address 75 [facility] 7t [place] [address] Care Team Providers Care Set Up And Charger Name Role Phone Shell Lazaro MD Primary Care Provider [phone] Juan J Holley MD Primary Care Prov ider Reason for Visit * Reason Onset Date Comments Nurse Triage 09/13/2022 Encounter Details Date Type Department Care Team (Late st Contact Info) Description 09/13/2022 Telephone [facility] MED [facility] PEDS [address] [place] [address] Shell Lazaro MD [address] [place] [address] Nurse Triage Social History Tobacco Use Types [...] and not itchy. Apt with provider in [facility] 09/14 @ 140pm . Pt [...] accepted this outcome Please contact pt at [phone] documented in this encounter Plan of Treatment Not on file documented as of this encounter Visit Diagnoses Not on filedocumented in this encounter Care Teams Set Up And Charger Relationship Specialty Start Date End Date Shell Lazaro MD [address] [place] [phone] PCP - General Family Medicine 04/04/13 12/31/24 Juan J Holley MD [address] [place] [phone] PCP - General Internal Medicine 01/01/25 documented as of this encounter
--- OUTSIDE RECORDS SUMMARY | 2025-01-10 09:46 | XMS_ITS | Encounter Summary ---
Author Organization [employer] Address 75 [facility] 7t [place] [address] Care Team Providers Care Biological Science Technician Name Role Phone Shell Lazaro MD Primary Care Provider [phone] Juan J Holley MD Primary Care Prov ider Reason for Visit * Reason Onset Date Comments Appointment Request 05/21/2023 Encounter Details Date Type Department Care Team (Late st Contact Info) Description 05/21/[address] [facility] MEDICINE [address] [place] [address] Shell Lazaro MD [address] [place] [address] Appointment Request Social History Tobacco Use Types [...] on filedocumented in this encounter Care Teams Biological Science Technician Relationship Specialty Start Date End Date Shell Lazaro MD [address] [place] [phone] PCP - General Family Medicine 04/04/13 12/31/24 Juan J Holley MD [address] [place] [phone] PCP - General Internal Medicine 01/01/25 documented as of this encounter
--- OUTSIDE RECORDS SUMMARY | 2025-01-10 09:46 | XMS_ITS | Encounter Summary ---
Author Organization [employer] Address 75 [facility] 7t [place] [address] Care Team Providers Care Vessel Liner Name Role Phone Juan J Holley MD Primary Care Prov ider Reason for Visit * Reason Onset Date Comments Nurse Triage 01/05/2025 Encounter Details Date Type Department Care Team ([facility] st Contact Info) Description 01/05/2025 Telephone [facility] MEDICINE [address] [place] [address] Juan J Holley MD [address] [place], [place] [phone] Nurse Triage Social History Tobacco Use Types [...] call regarding prior message. Contact pt at [phone] * Telephone Encounter - Anabella Abbasi RN [...] documented as of this encounter Care Teams Vessel Liner Relationship Specialty Start Date End Date Juan J Holley MD [address] [place] [phone] PCP - General Internal Medicine 01/01/25 documented as of this encounter
--- OUTSIDE RECORDS SUMMARY | 2025-01-10 09:46 | XMS_ITS | Encounter Summary ---
Author Organization [email or web address] Address 75 [facility] 7t [place] [address] Care Team Providers Care Java Flex Developer Name Role Phone Shell Lazaro MD Primary Care Provider [phone] Juan J Holley MD Primary Care Prov ider Encounter Details Date Type Department Care Team (Late st Contact Info) Description 06/27/2022 Telephone [facility] MEDICINE [address] [place] [address] Shell Lazaro MD [address] [place], [place] [phone] Social History Tobacco Use Types Packs/Day Years [...] on filedocumented in this encounter Care Teams Java Flex Developer Relationship Specialty Start Date End Date Shell Lazaro MD [address] [place] [address] PCP - General Family Medicine 04/04/13 12/31/24 Juan J Holley MD [address] [place] [address] PCP - General Internal Medicine 01/01/25 documented as of this encounter
--- OUTSIDE RECORDS SUMMARY | 2025-01-10 09:46 | XMS_ITS | Encounter Summary ---
Author Organization [employer] Address 75 [facility] 7t [place] [address] Care Team Providers Care Asphalt Heater Tender Name Role Phone Juan J Holley MD [...] Frequency of Binge Drinking Not on file 1006/2022 Score 0 12/06/2022 Depression Answer Date Recorded [...] Health Questionnaire-2 Score 4 06/2024 10:24 AM Britteny Royal [place] * Little interest or pleasure [...] documented as of this encounter Care Teams Asphalt Heater Tender Relationship Specialty Start Date End Date Juan J Holley MD [address] [place] [address] PCP - General Internal Medicine 01/01/25 documented as of this encounter
--- OUTSIDE RECORDS SUMMARY | 2025-01-10 09:46 | XMS_ITS | Encounter Summary ---
Author Organization [employer] Address 75 [facility] 7t [place] [address] Care Team Providers Care Field Research Associate Name Role Phone Shell Laazro MD Primary Care Provider [phone] Juan J Holley MD Primary Care Prov ider Reason for Visit * Reason Onset Date Comments Referral 09/19/2022 Encounter Details Date Type Department Care Team (Late st Contact Info) Description 09/19/2022 Telephone [facility] MEDICINE [address] [place] [address] Shell Lazaro MD [address] [place] [address] Referral Social History Tobacco Use Types Packs/Day [...] requesting a mamogram order to location : [facility] : [facility]'s [address] [place] [address] Lazaro documented in this encounter Plan of Treatment Not on file documented as of this encounter Visit Diagnoses Not on filedocumented in this encounter Care Teams Field Research Associate Relationship Specialty Start Date End Date Shell Lazaro MD [address] [place] [address] PCP - General Family Medicine 04/04/13 12/31/24 Juan J Holley MD [address] [place] [phone] PCP - General Internal Medicine 01/01/25 documented as of this encounter
--- OUTSIDE RECORDS SUMMARY | 2025-01-10 09:46 | XMS_ITS | Encounter Summary ---
Author Organization [employer] Address 75 [facility] 7t [place] [address] Care Team Providers Care Customer Program Manager Name Role Phone Shell Lazaro MD Primary Care Provider [phone] Juan J Holley MD Primary Care Prov ider Reason for Visit * Reason Onset Date Comments Appointment Request 07/01/2024 Encounter Details Date Type Department Care Team ([facility] st Contact Info) Description 07/01/2024 Telephone [facility] MEDICINE [address] [place] [address] Shell Lazaro MD [address] [place] [address] Appointment Request Social History Tobacco Use Types [...] pt got Surgery Done. Contact pt at [phone] documented in this encounter Plan of Treatment Not on file documented as of this encounter Visit Diagnoses Not on filedocumented in this encounter Additional Health Concerns Assessment Noted Time PHQ-9 Depression Total Score: 11 024 9:26 AM EST documented as of this encounter Care Teams Customer Program Manager Relationship Specialty Start Date End Date Shell Lazaro MD [address] [place] [address] PCP - General Family Medicine 04/04/13 12/31/24 Juan J Holley MD [address] [place] [phone] PCP - General Internal Medicine 01/01/25 documented as of this encounter
--- OUTSIDE RECORDS SUMMARY | 2025-01-10 09:46 | XMS_ITS | Encounter Summary ---
Author Organization [employer] Address 75 [facility] 7t [place] [address] Care Team Providers Care Farm Machinery Assembler Name Role Phone Shell Lazaro MD Primary Care Provider [phone] Juan J Holley MD Primary Care Prov ider Reason for Visit * Reason Onset Date Comments Medication Question 05/07/2023 Encounter Details Date Type Department Care Team ([facility] st Contact Info) Description 05/07/2023 Telephone [facility] [address] [place] [address] Shell Lazaro MD [address] [place] [address] Medication Question Social History Tobacco Use Types [...] on filedocumented in this encounter Care Teams Farm Machinery Assembler Relationship Specialty Start Date End Date Shell Lazaro MD [address] [place] [phone] PCP - General Family Medicine 04/04/13 12/31/24 Juan J Holley MD [address] [place] [phone] PCP - General Internal Medicine 01/01/25 documented as of this encounter
== END 2025-01-10 09:41 | disposition home or self-care (01) ==
LOC: HO.XRAY 09:40
PROVIDERS: Visit Provider Anesthesiology
DX: M53.3 Sacrococcygeal disorders, not elsewhere classified (principal)
CPT/HCPCS: 72190

== ENCOUNTER → 2025-01-10 09:44 | Outpatient (BNV) | payer MEDICAID, SELFPAY | PROVIDERS: Visit Provider Radiology Diagnostic Radiology | DX: M53.3 Sacrococcygeal disorders, not elsewhere classified (principal) | CPT/HCPCS: 72190 ==

== ENCOUNTER 2025-01-21 15:46 | Outpatient (AMB) | payer MEDICAID, SELFPAY ==
[2025-01-21 15:50] VITALS: BP 166/98; PULSE 67; RESP 16; O2SAT 100; BMI 39.3
--- NOTE | 2025-01-21 15:50 | MHC.OFFVIS ---
Vital Signs 01/21/25 15:50 Height 5 ft 4 in Weight 229 lb BMI 39.3 BP 166/98 H Blood Pressure Location Rt brachial Position Sitting Respiration 16 Pulse 67 Pulse Source Pulse Oximeter Pulse Oximetry (%) 100 Oxygen Delivery Method Room Air Intake Visit Reasons: 2 Week Follow Up Information Services Vice President Required: No Accompanied by: REINFORCING STEEL WORKER WIRE MESH Allergies No Known Allergies Allergy (Verified 01/21/25 15:53) HPI Comments Details: Scarlet is back in my office 6 months after the revision of the PNS curonix of the sacroiliac joints. The patient reported that recently she felt again and she all again feels that 1 of her leads got dislodged. Last time she was in my office two weeks ago I sent her for the pelvis xray and the x-ray demonstrated left-sided dislodgement of the lead about 5-7 mm. I still believe that possibility exists to adjust the stimulation for the patient and avoid yet another revision. I will contact [facility] PNS people and have him to examined day x-ray and after that tried to adjust the stimulation the way it would be appropriate for the patient. I am not sure at all if 2nd revision is possible because 1st revision was technically very difficult. Alternatively I can offer sacroiliac joint fusion for the patient if she will stop smoking. Prior: The procedure was technically very difficult. However we were able to achieve appropriate position of the bilateral stimulation of the curonix PNS . Today the patient came for dressing change. The dressing was removed the wounds are dry no pathological discharge no redness no swelling no tenderness on palpation. The patient reports minor to moderate aching and burning sensation in the projection of the incisions. Today we removed the dressings washed the wounds with ChloraPrep, jaswinder were removed I applied sterile 4x4s and Tegaderm drape. Patient reports stronger stimulation on the left side. The [facility] agricultural sales representative is working with the patient to decrease her level of stimulation on the left. Counseling was provided to the patient about hygiene limitations activity limitations avoiding heavy lifting and continuation of wearing abdominal binder. No new appointment will be scheduled unless patient desires to. She continues to be under care of Dr. Lloyd, she is very satisfied with care Dr. Lloyd it provides for her. Prior diagnostic T11-T12 L1 bilateral medial branch block resulted in complete elimination of the pain for the 1st 5 hours after the procedure.? The pain relieve lasted more than a week after the injection. Obviously we have found her pain generator.? Those are thoracic facet joints.? I offered her steroid injections versus PNS Sprint T12 right following T12 left 1 week after.? She also reports that she has significant hand stiffness in the morning.? His stiffness is lasting 3-4 hours.? This is justified to consider her a rheumatoid arthritis patient.? She is 42 years old and she is primary age for the onset of rheumatoid arthritis.? She was referred to advertising sales assistant and she was placed on steroids. It is significant dose of steroids with weekly taper. H/o excellent results of stim wave bilateral sacroiliac joint stimulation stim wave/[employer].? she reports excellent pain trial with the device.? She reports excellent pain relief after the implant.? She reports all the pain in the lower back in the projection of the sacroiliac joints is all but gone.? Recently started to experience pain in the thoracic spine as well as pain in the knees bilateral.? Palpation of the thoracic spine in the projection of the approximately T6-T7 T8 spinous processes as well as paraspinal regions is very tender.? She reports limited ability to walk because of this pain.? She reports severe pain with range of motion.? She requests me to perform some injections to help her pain.? I will schedule her for T6-T7 T8 bilateral diagnostic medial branch block.? Possibility exist of treating this pain with sprint PNS.? Alternatively RFA comes to my mind however radiofrequency ablation of the thoracic medial branches considered experimental by most insurances.? The evidence in literature is scant on this procedure as well.? Therapeutic medial branches injections once diagnostic procedures established could be performed if it is desired by the patient.? It has been 6 months since implant of stim wave I do not think there are limitations anymore on steroid medications on this patient.? [facility] Medical History Diabetes GERD (gastroesophageal reflux disease) Depression Migraine Back pain Snores Hx of myocardial infarction Anxiety History of COVID-19 HTN (hypertension) Raynaud's disease without gangrene delivery delivered Surgical History History of reversal of tubal ligation Hx of section History of back surgery Lipoma of arm Carpal tunnel syndrome Family History Other Adopted person Medical history unknown Social History Are you a primary respiratory care specialist to a significant other at home: No Do you presently have visiting nurse or other home services: No Alcohol intake: current Alcohol intake frequency: does not drink Patient Tobacco Use Status: Current everyday Tobacco user Tobacco use type: Cigarette Cigarettes Per Day: 3 Years Smoked: 27 Substance Use Type: Marijuana Current occupational status: unemployed and other 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 Review of Systems Const All systems reviewed & are unremarkable except as noted in HPI and below Physical Exam Vital Signs: Last Vital Signs Pulse 67 01/21/25 15:50 Resp 16 01/21/25 15:50 BP 166/98 H 01/21/25 15:50 Pulse Ox 100 01/21/25 15:50 Oxygen Delivery Method Room Air 01/21/25 15:50 BMI result Body Mass Index 39.3 Const General: cooperative and no acute distress Orientation/consciousness: patient oriented x3 Resp Effort & Inspection: normal respiratory effort, able to speak in complete sentences and no audible wheezes Back/Spine/Pelvis Other: Tenderness on palpation in paraspinal spinal region of the thoracic spine with most tender point at T7. Paraspinal regions are more tender that midline spinal. Chon test Gaenslen test pelvic compression test pelvic destruction test Stinchfield test all positive bilaterally. SLR is negative. Bilateral normal strength of bilateral lower extremities. Valsalva is negative. Pelvic organ function is intact. Neuro General: patient oriented x3 Assessment & Plan Assessment & Plan (1) Sacroiliac joint pain: Code(s): M53.3 - Sacrococcygeal disorders, not elsewhere classified Category: Medical (2) Spondylosis, thoracic, without myelopathy: Code(s): M47.814 - Spondylosis without myelopathy or radiculopathy, thoracic region Category: Medical (3) Dorsalgia of thoracic region: Code(s): M54.6 - Pain in thoracic spine Category: Medical (4) Rheumatoid arthritis: Code(s): M06.9 - Rheumatoid arthritis, unspecified Category: Medical (5) Osteoarthritis of left knee: Code(s): M17.12 - Unilateral primary osteoarthritis, left knee Category: Medical (6) Left knee pain: Code(s): M25.562 - Pain in left knee Category: Medical (7) S/P insertion of spinal cord stimulator: Code(s): Z96.89 - Presence of other specified functional implants Category: Surgical (8) Left hip pain: Code(s): M25.552 - Pain in left hip Category: Medical (9) Arthritis of left hip: Code(s): M16.12 - Unilateral primary osteoarthritis, left hip Category: Medical Plan H/o good result of PNS stimwave for SI joints pain. Unfortunately patient dislodged her electrodes about 1 year after the implantation. She went for revision on 06/13/2024. Now she reports that she feels like she dislodged electrode again because she fell again. I did send her for the x-ray and it did demonstrate some dislodgement of the left lead. See discussion as above. I am not sure that 2nd revision is possible the 1st 1 was technically difficult. Alternatively she can not stop smoking and then she will be candidate for say SI joint fusion. Steroid injections in the past aggravated her pain while diagnostic with ropivacaine only and without any steroids sacroiliac joint injection was very successful to control her pain for for more than 6 hours. Coding Level of Care Code Est Pt Level 3 (59421) Diagnoses Sacroiliac joint pain M53.3 Spondylosis, thoracic, without myelopathy M47.814 Dorsalgia of thoracic region M54.6 Rheumatoid arthritis M06.9 Osteoarthritis of left knee M17.12 Left knee pain M25.562 S/P insertion of spinal cord stimulator Z96.89 Left hip pain M25.552 Arthritis of left hip M16.12
--- OUTSIDE RECORDS SUMMARY | 2025-01-22 04:22 | XMS_ITS | Encounter Summary ---
Author Organization [employer] Address 75 [facility] 7t [place] [address] Care Team Providers Care Corporate Giving Manager Name Role Phone Shell Lazaro MD Primary Care Provider [phone] Juan J Holley MD Primary Care Prov ider Reason for Visit * Reason Onset Date Comments Referral 09/19/2022 Encounter Details Date Type Department Care Team (Late st Contact Info) Description 09/19/2022 Telephone [facility] [address] [place] [address] Shell Lazaro MD [address] [place] [address] Referral Social History Tobacco Use Types Packs/Day [...] requesting a mamogram order to location : [facility] : [facility] [address] [place] [address] Lazaro documented in this encounter Plan of Treatment Not on file documented as of this encounter Visit Diagnoses Not on filedocumented in this encounter Care Teams Corporate Giving Manager Relationship Specialty Start Date End Date Shell Lazaro MD [address] [place] [address] PCP - General Family Medicine 04/04/13 12/31/24 Juan J Holley MD [address] [place] [address] PCP - General Internal Medicine 01/01/25 documented as of this encounter
--- OUTSIDE RECORDS SUMMARY | 2025-01-22 04:22 | XMS_ITS | Encounter Summary ---
Author Organization [employer] Address [address] [place] [address] Care Team Providers Care Beater And Pulper Feeder Name Role Phone Shell Lazaro MD Primary Care Provider [phone] Juan J Holley MD Primary Care Prov ider Reason for Visit * Reason Onset Date Comments Appointment Request 07/01/2024 Encounter Details Date Type Department Care Team ([facility] st Contact Info) Description 07/01/2024 Telephone [facility] MEDICINE [address] [place] [address] Shell Lazaro MD [address] [place] [address] Appointment Request Social History Tobacco Use Types [...] pt got Surgery Done. Contact pt at [phone] documented in this encounter Plan of Treatment Not on file documented as of this encounter Visit Diagnoses Not on filedocumented in this encounter Additional Health Concerns Assessment Noted Time PHQ-9 Depression Total Score: 11 024 9:26 AM EST documented as of this encounter Care Teams Beater And Pulper Feeder Relationship Specialty Start Date End Date Shell Lazaro MD [address] [place] [address] PCP - General Family Medicine 04/04/13 12/31/24 Juan J Holley MD [address] [place] [phone] PCP - General Internal Medicine 01/01/25 documented as of this encounter
--- OUTSIDE RECORDS SUMMARY | 2025-01-22 04:22 | XMS_ITS | Clinical Summary ---
Author Organization [facility] Address [address] [place] [address] Care Team Providers Care And Taxi Instructor Bus Trolley Name Role Phone Shell Lazaro MD Primary Care Provider [phone] Social History Tobacco Use Types Packs/Day Years [...] age to complete this topic Care Teams And Taxi Instructor Bus Trolley Relationship Specialty Start Date End Date Shell Lazaro MD [address] [place] [address] [place] [address] PCP - General Adult Medicine 07/01/20
--- OUTSIDE RECORDS SUMMARY | 2025-01-22 04:22 | XMS_ITS | Clinical Summary ---
Author Organization [employer] Address [address] [facility] 7t [place] [address] Care Team Providers Care Clothing Examiner Name Role Phone Juan J Holley MD [...] Team Description 01/06/2025 10:45 AM EST Telemedicine [facility] MED & PEDS [address] [place] [address] Juan J Holley MD Chronic bilateral low back pain without sciatica (Primary Dx) 01/06/2025 Travel 01/05/2025 Telephone [facility] MEDICINE [address] [place], [place] [phone] Juan J Holley MD Nurse Triage from [...] 8:07 AM EDT) Triglycerides 142 <150 mg/dL [facility] Comment:Desirable Triglyceri de: less than 150 mg/dLBorderline High Triglyceride 150-199 mg/dLHigh Triglyceride: 200-499 mg/dLVery High Triglyceride: greater than or equal to 5OO mg/dL Cholesterol 184 <200 mg/dL [facility] Comment:Desirable Cholestero l: less than 200 mg/dLBorderline High Cholesterol: 200-239 mg/dLHigh Cholesterol: greater than 239 mg/dL LDL Cholesterol Calculated 120(H) <100 mg/dL [facility] Comment:Desirable LDL: less than 100 mg/dLNear Optimal/Above Optimal LDL: 110- 129 mg/dLBorderline High LDL: 130-159 mg/dLHigh LDL: 160-189 mg/dLVery High LDL: greater than or equal to 190 mg/dL HDL Cholesterol 36(L) >40 mg/dL [facility] Comment:Desirable HDL: great er than 40 mg/dL Note: This HDL assay may give artificially low results in patients with liver disease. Blood Venous blood specimen / Unknown 10/11/2023 8:07 AM EDT 10/11/2023 8:15 AM EDT us Shell Lazaro MD LAB BLOOD ORDERABLES Final Resul t [facility] [address] [place] [phone] * Hepatitis Panel, General (11/08/2022 12:06 PM EDT) Hepatitis A IgM Nonreactive Nonreactive [facility] Comment:IgM antibodies to GOMEZ V not detected; does not exclude earlyacute or recovered HAV infection. ~Hepatitis B Surface Antibody REACTIVE Nonreactive [facility] Comment:REACTIVE: > 11.99 mI U/mL Hepatitis B Core Antibody Nonreactive Nonreactive [facility] Hepatitis C Antibody Nonreactive Nonreactive [facility] Comment:Antibodies to HCV no t detected; does not exclude early acuteHCV infection. Hepatitis B Surface Ag Negative Negative [facility] 11/08/2022 12:0 6 PM EDT 11/08/2022 12:11 PM EDT [facility] External Provider LAB BLO OD ORDERABLES Final Result [facility] [address] [place] [phone] * Mammography Report 1 (08/12/2021 10:25 [...] HPV mRNA E6/E7 Not Detected NOT DETECTED [facility] Comment: This test was performed using the APTIMA(R) HPV Assay ([employer] This assay detects E6/E7 viral messenger RNA (mRNA) from 14 high-risk HPV types (16,18,31,33,35,39,45,51, 52,56,58,59,66,68). For additional information please refer to: http://education.[employer]/faq/WDV898g1 (This link is being provided for informational/ educational purposes only.) The analytical performance characteristics of this assay have been determined by [facility] [place], [place]. The modifications have not been cleared or approved by the FDA. This assay has been validated pursuant to the CLIA regulations and is used for clinical purposes. Test Performed by [email or web address], [facility] [place], [address] [place] [address] Chon Carrillo M.D., Ph.D., Director of Laboratories , CLIA [id number] Please note: Effective 11/15/2015, HPV testing will be performed using [employer]'s APTIMA test which targets mRNA. Detecting mRNA instead of DNA, as in older methods, offers significant improvements in specificity. 04/30/2018 4:00 PM EST Gloria Mcmillan CNM HISTORICAL/NON ORDERABLE LABS Final Result [facility] Anywhere [address] from Last 3 Months or Most Recently Relevant to Health Maintenance [place] [address] [address] C3 Care Teams Clothing Examiner Relationship Specialty Start Date End Date Juan J Holley MD [address] [place] [phone] PCP - General Internal Medicine 01/01/25
--- OUTSIDE RECORDS SUMMARY | 2025-01-22 04:22 | XMS_ITS | Encounter Summary ---
Author Organization [employer] Address [address] [facility] 7t [place] [address] Care Team Providers Care Apprentice Plumber Name Role Phone Shell Lazaro MD Primary Care Provider [phone] Juan J Holley MD Primary Care Prov ider Reason for Visit * Reason Onset Date Comments Nurse Triage 09/13/2022 Encounter Details Date Type Department Care Team (Late st Contact Info) Description 09/13/2022 Telephone [facility] MED & PEDS [address] [place] [address] Shell Lazaro MD [address] [place] [address] Nurse Triage Social History Tobacco Use Types [...] and not itchy. Apt with provider in [facility] 09/14 @ 140pm . Pt agrees [...] accepted this outcome Please contact pt at [phone] documented in this encounter Plan of Treatment Not on file documented as of this encounter Visit Diagnoses Not on filedocumented in this encounter Care Teams Apprentice Plumber Relationship Specialty Start Date End Date Shell Lazaro MD [address] [place] [phone] PCP - General Family Medicine 04/04/13 12/31/24 Juan J Holley MD [address] [place] [phone] PCP - General Internal Medicine 01/01/25 documented as of this encounter
--- OUTSIDE RECORDS SUMMARY | 2025-01-22 04:22 | XMS_ITS | Encounter Summary ---
Author Organization [employer] Address [address] [facility] 7[address] [place] [address] Care Team Providers Care Powerhouse Engineer Name Role Phone Shell Lazaro MD Primary Care Provider [phone] Juan J Holley MD Primary Care Prov ider Encounter Details Date Type Department Care Team (Late st Contact Info) Description 06/27/2022 Telephone [facility] MEDICINE [address] [place] [address] Shell Lazaro MD [address] [place], [place] [phone] Social History Tobacco Use Types Packs/Day Years [...] on filedocumented in this encounter Care Teams Powerhouse Engineer Relationship Specialty Start Date End Date Shell Lazaro MD [address] [place] [phone] PCP - General Family Medicine 04/04/13 12/31/24 Juan J Holley MD [address] [place] [phone] PCP - General Internal Medicine 01/01/25 documented as of this encounter
--- OUTSIDE RECORDS SUMMARY | 2025-01-22 04:22 | XMS_ITS | Encounter Summary ---
Author Organization [employer] Address [address] [facility] 7t [place] [address] Care Team Providers Care Bag Mender Name Role Phone Shell Lazaro MD Primary Care Provider [phone] Juan J Holley MD Primary Care Prov ider Reason for Visit * Reason Onset Date Comments Appointment Request 05/21/2023 Encounter Details Date Type Department Care Team (Late st Contact Info) Description 05/21/2023 Telephone [facility] MEDICINE [address] [place] [address] Shell Lazaro MD [address] [place] [address] Appointment Request Social History Tobacco Use Types [...] on filedocumented in this encounter Care Teams Bag Mender Relationship Specialty Start Date End Date Shell Lazaro MD [address] [place] [phone] PCP - General Family Medicine 04/04/13 12/31/24 Juan J Holley MD [address] [place] [phone] PCP - General Internal Medicine 01/01/25 documented as of this encounter
--- OUTSIDE RECORDS SUMMARY | 2025-01-22 04:22 | XMS_ITS | Encounter Summary ---
Author Organization [employer] Address [address] [facility] 7t [place] [address] Care Team Providers Care Trimmer Buffing Wheel Name Role Phone Shell Lazaro MD Primary Care Provider [phone] Juan J Holley MD Primary Care Prov ider Reason for Visit * Reason Onset Date Comments Medication Question 05/07/2023 Encounter Details Date Type Department Care Team ([facility] st Contact Info) Description 05/07/2023 Telephone [facility] [address] [place] [address] Shell Lazaro MD [address] [place] [address] Medication Question Social History Tobacco Use Types [...] Miscellaneous Notes * Telephone Encounter - Shell aLzaro MD - 05/08/2023 11:23 AM EST Pulmicort [...] on filedocumented in this encounter Care Teams Trimmer Buffing Wheel Relationship Specialty Start Date End Date Shell Lazaro MD [address] [place] [phone] PCP - General Family Medicine 04/04/13 12/31/24 Juan J Holley MD [address] [place] [phone] PCP - General Internal Medicine 01/01/25 documented as of this encounter
== END 2025-01-21 15:55 | disposition home or self-care (01) ==
PROVIDERS: Visit Provider Anesthesiology
DX: M53.3 Sacrococcygeal disorders, not elsewhere classified (principal); M47.814 Spondylosis without myelopathy or radiculopathy, thoracic region; M54.6 Pain in thoracic spine; M06.9 Rheumatoid arthritis, unspecified; M17.12 Unilateral primary osteoarthritis, left knee; M25.562 Pain in left knee; Z96.89 Presence of other specified functional implants; M25.552 Pain in left hip; M16.12 Unilateral primary osteoarthritis, left hip
CPT/HCPCS: 99213

== ENCOUNTER → 2025-01-21 15:46 | Outpatient (BNVA) | payer MEDICAID, SELFPAY | PROVIDERS: Visit Provider Anesthesiology | DX: M53.3 Sacrococcygeal disorders, not elsewhere classified (principal); M47.814 Spondylosis without myelopathy or radiculopathy, thoracic region; M54.6 Pain in thoracic spine; M06.09 Rheumatoid arthritis without rheumatoid factor, multiple sites; M17.12 Unilateral primary osteoarthritis, left knee; M25.562 Pain in left knee; M25.552 Pain in left hip; M16.12 Unilateral primary osteoarthritis, left hip; Z96.89 Presence of other specified functional implants | CPT/HCPCS: 99212 ==